=== PATIENT | female | born 1980 | race Caucasian/White ===

== ENCOUNTER 2016-07-31 17:36 | Inpatient (IN) | payer OTHER ==
[~2016-07-31] VITALS: Ht 144.8 cm; Wt 50.0 kg
[~2016-07-31 17:36] MED LIST: AMOX1TAB61 PO; CITA20TA5 PO; HYDR-971 PO; OMEP20TA PO
[2016-07-31] MEDS: IV NORMAL SALINE 1000ML BAG 1,000 ML IV SCH ×3 (18:10→21:11)
[2016-07-31 18:35] LABS: BASO # 0.1 x10^3/uL (0.0-0.2); BASO % 0 % (0-3); EOS % 1 % (0-3); HEMATOCRIT 30.6 % (36.0-47.0); HEMOGLOBIN 9.5 g/dL (12.0-15.5); LYMPH # 1.7 x10^3/uL (1.0-4.8); LYMPH % 11 % (24-48); MEAN CORPUSCULAR HEMOGLOBIN 21 pg (25-35); MEAN CORPUSCULAR HGB CONC 31 g/dL (31-37); MEAN CORPUSCULAR VOLUME 69 fL (79-100); MONO % 3 % (0-9); NEUT % 85 % (31-73); PLATELET COUNT 368 x10^3/uL (140-400); RED BLOOD COUNT 4.42 x10^6/uL (3.50-5.40); RED CELL DISTRIBUTION WIDTH 18.5 % (11.5-14.5); WHITE BLOOD COUNT 14.9 x10^3/uL (4.0-11.0)
[2016-07-31] MEDS ORDERED: IOHEXOL 300 MG/ML 75 ML VIAL IV ONE (18:45)
[2016-07-31 18:50] LABS: CALCIUM 8.7 mg/dL (8.5-10.1); CREATININE 0.8 mg/dL (0.6-1.0); GFR 82.6; POTASSIUM 3.1 mmol/L (3.5-5.1)
[2016-07-31 18:59] LABS: ALBUMIN 2.8 g/dL (3.4-5.0); ALBUMIN/GLOBULIN RATIO 0.6 (1.0-1.7); TOTAL BILIRUBIN 0.3 mg/dL (0.2-1.0); TOTAL PROTEIN 7.4 g/dL (6.4-8.2)
[2016-07-31] MEDS ORDERED: CONTRAST GIVEN MC PRN (19:00)
[2016-07-31 19:12] LABS: OBC FLU VALID
[2016-07-31 19:13] LABS: ANISOCYTOSIS SLIGHT; HYPOCHROMIA MOD; MICROCYTOSIS MARKED; OVALOCYTES FEW; PLT ESTIMATE ADEQUATE (ADEQUATE); TOXIC GRANULATION SLIGHT; TOXIC VACUOLATION SLIGHT
[2016-07-31] MEDS ORDERED: ONDANSETRON PF 4 MG/2 ML VIAL. IV ONE (19:15)
[2016-07-31] MEDS ORDERED: FENTANYL PF 100 MCG/2 ML VIAL. IV ONE (19:15)
[2016-07-31 19:26] LABS: NEG OBC UR NEG; POS OBC UR POS
[2016-07-31 19:28] LABS: BILIRUBIN,URINE NEGATIVE (NEG); GLUCOSE,URINE NEGATIVE (NEG); NITRITE,URINE NEGATIVE (NEG)
[2016-07-31 19:38] LABS: BACTERIA,URINE FEW /HPF (0-FEW); PROTEIN,URINE TRACE mg/dL (NEG-TRACE); RBC,URINE 0 /HPF (0-2); SQUAMOUS EPITHELIAL CELL,UR MOD /LPF
--- NOTE | 2016-07-31 20:08 | RAD ---
PROCEDURE CT abdomen pelvis with contrast. HISTORY Right upper and lower quadrant pain for 5 days with vomiting. Elevated white count TECHNIQUE Contiguous helical acquisitions are obtained through the abdomen and pelvis during intravenous administration of 95 cc of Omnipaque 300. Sagittal and coronal re-formatted images are obtained and reviewed. COMPARISON None available. FINDINGS The lung bases are essentially clear. The visualized heart is normal. The liver, spleen, pancreas and gallbladder appear normal. Both adrenal glands and bilateral kidneys are normal in size with symmetric excretion of contrast via both kidneys. Aorta is normal in caliber without aneurysm. There is diffuse wall thickening of several small bowel loops in the mid and right lower abdomen with inflammatory changes. Appendix is not identified. There is a probable 3.1centimeter collection with enhancing mao in the right lower quadrant. decompressed. The uterus is anteverted. Stool in the rectosigmoid region. Free fluid in the posterior cul-de-sac could. IMPRESSION 3.1 centimeter fluid collection in the right lower abdomen with enhancing mao and adjacent inflammatory changes. The findings are concerning for ruptured appendicitis with abscess formation. Wall thickening and inflammatory changes surrounding several small bowel loops in the right mid and lower abdomen probably reflects reactive enteritis. PQRS: One or more the following individualized dose reduction techniques were utilized for the study: 1. Automated exposure control. 2. Adjustment of the mA and/or kV according to patient size. 3. Use of iterative reconstruction technique. Electronically signed by: Nikki Benítez MD (Jul 31, 2016 20:06:24)
[2016-07-31] MEDS ORDERED: PIPERACILLIN/TAZOBACTAM 3.375 GM in IV NORMAL SALINE 50ML 50 ML IV ONE (20:15)
[2016-07-31] MEDS ORDERED: PIP/TAZO PER PHARMACY MC PRN (20:15)
[2016-07-31 20:16] LABS: PROCALCITONIN 0.16 ng/mL (0.00-0.10)
--- NOTE | 2016-07-31 20:57 | PHYS DOC ---
Past Medical History Past Medical History: Anxiety, Asthma, GERD Past Surgical History: , Other Additional Past Surgical Histo: d&c Alcohol Use: None Drug Use: None Adult General Chief Complaint Chief Complaint: ABDOMINAL PAIN HPI HPI Patient is a 35 year old female who presents with complaint of severe right lower quadrant pain. Patient states that she initially had pain in her right flank starting one week ago. The patient states that she shortly started her period afterward and thought that her pains were related to menstrual cramps. Patient states however that throughout the week she has been getting worsening pain along the right side with development of nausea and vomiting. Patient states that the pain has now become quite severe, and she has not been able to function normally at home. Patient rates her pain currently is 10 out of 10. Patient states that she feels very lightheaded and has been having chills. Patient states that the has localized to her right lower quadrant. Patient denies history of appendectomy. Review of Systems Review of Systems Constitutional: Chills, lightheadedness [] Eyes: Denies change in visual acuity, redness, or eye pain [] HENT: Denies nasal congestion or sore throat [] Respiratory: Dyspnea on exertion, denies cough [] Cardiovascular: No additional information not addressed in HPI [] GI: Abdominal pain, nausea, vomiting, denies diarrhea [] : Denies dysuria or hematuria [] Musculoskeletal: Denies back pain or joint pain [] Integument: Denies rash or skin lesions [] Neurologic: Denies headache, focal weakness or sensory changes [] Endocrine: Denies polyuria or polydipsia [] Current Medications Current Medications Current Medications Medications (Trade) Dose Ordered Sig/Rocky Start Time Stop Time Status Last Admin Dose Admin Fentanyl Citrate (Fentanyl 2ml Vial) 50 mcg 1X ONCE 07/31/16 19:15 07/31/16 19:16 DC 07/31/16 19:30 50 MCG Info (Do NOT chart on this entry -- for MONITORING) 1 each PRN DAILY PRN 07/31/16 19:00 08/02/16 18:59 Iohexol (Omnipaque 300 Mg/ml) 75 ml 1X ONCE 07/31/16 18:45 07/31/16 18:47 DC 07/31/16 18:45 75 ML Ondansetron HCl (Zofran) 4 mg 1X ONCE 07/31/16 19:15 07/31/16 19:16 DC 07/31/16 19:29 4 MG Piperacillin Sod/ Tazobactam Sod 1 each 1 each PRN DAILY PRN 07/31/16 20:15 Piperacillin Sod/ Tazobactam Sod/ Sodium Chloride (Zosyn/Iv Sodium Chloride 0.9% 50ml) 50 ml @ 100 mls/hr 1X ONCE 07/31/16 20:15 07/31/16 20:44 DC 07/31/16 20:25 100 MLS/HR Sodium Chloride (Iv Sodium Chloride 0.9% 1000ml Bag) 1,000 ml @ 435 mls/hr Q2H18M 07/31/16 18:18 07/31/16 22:18 07/31/16 20:24 435 MLS/HR Allergies Allergies Allergies Coded Allergies Type Severity Reaction Last Updated Verified No Known Drug Allergies 11/11/13 No Physical Exam Physical Exam Constitutional: Alert, afebrile, appears ill. [] HENT: Normocephalic, atraumatic, bilateral external ears normal, oropharynx dry , no oral exudates, nose normal. [] Eyes: PERRLA, EOMI, conjunctiva normal, no discharge. [] Neck: Normal range of motion, no tenderness, supple, no stridor. [] Cardiovascular: Tachycardia, regular rhythm, no murmur [] Lungs & Thorax: Bilateral breath sounds clear to auscultation [] Abdomen: Hypoactive bowel sounds, severe right lower quadrant tenderness to palpation with guarding, no rebound tenderness, no masses, no pulsatile masses. [] Skin: Cool, pale, no erythema, no rash. [] Back: No tenderness, no CVA tenderness. [] Extremities: No tenderness, no cyanosis, no clubbing, ROM intact, no edema. [] Neurologic: Alert and oriented X 3, normal motor function, normal sensory function, no focal deficits noted. [] Current Patient Data Vital Signs Vital Signs Date Time Temp Pulse Resp B/P Pulse Ox O2 Delivery O2 Flow Rate FiO2 07/31/16 19:43 109 117/69 98 Room Air 07/31/16 17:52 98.3 22 98.3 Lab Values Laboratory Tests Test 07/31/16 17:53 07/31/16 17:56 07/31/16 19:15 Influenza Type A Antigen Negative (NEGATIVE) Influenza Type B Antigen Negative (NEGATIVE) White Blood Count 14.9x10^3/uL (4.0-11.0) H Red Blood Count 4.42x10^6/uL (3.50-5.40) Hemoglobin 9.5g/dL (12.0-15.5) L Hematocrit 30.6% (36.0-47.0) L Mean Corpuscular Volume 69fL (79-100) L Mean Corpuscular Hemoglobin 21pg (25-35) L Mean Corpuscular Hemoglobin Concent 31g/dL (31-37) Red Cell Distribution Width 18.5% (11.5-14.5) H Platelet Count 368x10^3/uL (140-400) Neutrophils (%) (Auto) 85% (31-73) H Lymphocytes (%) (Auto) 11% (24-48) L Monocytes (%) (Auto) 3% (0-9) Eosinophils (%) (Auto) 1% (0-3) Basophils (%) (Auto) 0% (0-3) Neutrophils # (Auto) 12.6x10^3uL (1.8-7.7) H Lymphocytes # (Auto) 1.7x10^3/uL (1.0-4.8) Monocytes # (Auto) 0.5x10^3/uL (0.0-1.1) Eosinophils # (Auto) 0.1x10^3/uL (0.0-0.7) Basophils # (Auto) 0.1x10^3/uL (0.0-0.2) Segmented Neutrophils % 76% (35-66) H Band Neutrophils % 9% (0-9) Lymphocytes % 12% (24-48) L Monocytes % 3% (0-10) Toxic Granulation Slight Toxic Vacuolation Slight Platelet Estimate Adequate (ADEQUATE) Hypochromasia Mod Anisocytosis Slight Microcytosis Marked Ovalocytes Few Sodium Level 141mmol/L (136-145) Potassium Level 3.1mmol/L (3.5-5.1) L Chloride Level 103mmol/L (98-107) Carbon Dioxide Level 29mmol/L (21-32) Anion Gap 9 (6-14) Blood Urea Nitrogen 10mg/dL (7-20) Creatinine 0.8mg/dL (0.6-1.0) Estimated GFR (Cockcroft-Gault) 82.6 BUN/Creatinine Ratio 13 (6-20) Glucose Level 156mg/dL (70-99) H Lactic Acid Level 1.5mmol/L (0.4-2.0) Calcium Level 8.7mg/dL (8.5-10.1) Total Bilirubin 0.3mg/dL (0.2-1.0) Aspartate Amino Transferase (AST) 8U/L (15-37) L Alanine Aminotransferase (ALT) 11U/L (14-59) L Alkaline Phosphatase 80U/L (46-116) Total Protein 7.4g/dL (6.4-8.2) Albumin 2.8g/dL (3.4-5.0) L Albumin/Globulin Ratio 0.6 (1.0-1.7) L Lipase 58U/L (73-393) L Procalcitonin 0.16ng/mL (0.00-0.10) H Urine Collection Type U cath Urine Color Genia Urine Clarity Clear Urine pH 6.0 Urine Specific [place] 1.025 Urine Protein Tracemg/dL (NEG-TRACE) Urine Glucose (UA) Negativemg/dL (NEG) Urine Ketones (Stick) Tracemg/dL (NEG) Urine Blood Negative (NEG) Urine Nitrite Negative (NEG) Urine Bilirubin Negative (NEG) Urine Urobilinogen Dipstick 1.0mg/dL (0.2 mg/dL) Urine Leukocyte Esterase Negative (NEG) Urine RBC 0/HPF (0-2) Urine WBC 1-4/HPF (0-4) Urine Squamous Epithelial Cells Mod/LPF Urine Amorphous Sediment Present/HPF Urine Bacteria Few/HPF (0-FEW) Urine Granular Casts Occasional/HPF Urine Mucus Marked/LPF Urine Test Negative (NEG) Laboratory Tests 07/31/16 17:56 Laboratory Tests 07/31/16 17:56 EKG EKG Interpreted by me: Heart rate 117, sinus tachycardia, normal intervals, normal axis, no acute ST/T-wave abnormalities present [] Radiology/Procedures Radiology/Procedures [facility] [address] [place], [place] [id number] IMAGING REPORT Signed PATIENT: AALIYAH MONTANEZ ACCOUNT: [id number] : 1980 LOCATION: ER AGE: 35 SEX: F EXAM STATUS: REG ER ORD. PHYSICIAN: SHARMIN CHÁVEZ MD REASON: right upper and lower quadrant abdominal pain PROCEDURE: ABD PELV W/ IV CONTRAST ONLY PROCEDURE CT abdomen pelvis with contrast. HISTORY Right upper and lower quadrant pain for 5 days with vomiting. Elevated white count TECHNIQUE Contiguous helical acquisitions are obtained through the abdomen and pelvis during intravenous administration of 95 cc of Omnipaque 300. Sagittal and coronal re-formatted images are obtained and reviewed. COMPARISON None available. FINDINGS The lung bases are essentially clear. The visualized heart is normal. The liver, spleen, pancreas and gallbladder appear normal. Both adrenal glands and bilateral kidneys are normal in size with symmetric excretion of contrast via both kidneys. Aorta is normal in caliber without aneurysm. There is diffuse wall thickening of several small bowel loops in the mid and right lower abdomen with inflammatory changes. Appendix is not identified. There is a probable 3.1centimeter collection with enhancing mao in the right lower quadrant. decompressed. The uterus is anteverted. Stool in the rectosigmoid region. Free fluid in the posterior cul-de-sac could. IMPRESSION 3.1 centimeter fluid collection in the right lower abdomen with enhancing mao and adjacent inflammatory changes. The findings are concerning for ruptured appendicitis with abscess formation. Wall thickening and inflammatory changes surrounding several small bowel loops in the right mid and lower abdomen probably reflects reactive enteritis. PQRS: One or more the following individualized dose reduction techniques were utilized for the study: 1. Automated exposure control. 2. Adjustment of the mA and/or kV according to patient size. 3. Use of iterative reconstruction technique. Electronically signed by: Nikki Benítez MD (Jul 31, 2016 20:06:24) DICTATED and SIGNED BY: NIKKI BENÍTEZ MD DATE: 07/31/162005 CC: SHARMIN CHÁVEZ MD; ERIC JO MD ~ [] Course & Med Decision Making Course & Med Decision Making Pertinent Labs and Imaging studies reviewed. (See chart for details) Patient was found to have ruptured appendicitis on CT scan. I consult to Dr. Lizarraga who agreed with initiation of Zosyn. He plans on evaluating the patient in the morning after fluid challenge and IV antibiotics as patient will likely require percutaneous drainage of the abscess in the right lower quadrant which will be done expectedly by interventional radiology. Spoke with patient regarding treatment plan. Patient admitted to Dr. Jo. Vinayak Disclaimer Vinayak Disclaimer This electronic medical record was generated, in whole or in part, using a voice recognition dictation system. Departure Departure Impression: Primary Impression: Ruptured appendicitis Additional Impression: Sepsis Disposition: ADMITTED INPATIENT Admitting Physician: Eric Jo Condition: GUARDED Referrals: ERIC JO MD (PCP) Problem Qualifiers Additional Impression: Sepsis Sepsis type: sepsis due to unspecified organism Qualified Code: A41.9 - Sepsis, unspecified organism SHARMIN CHÁVEZ MD Jul 31, 2016 20:57
[2016-07-31] MEDS: ONDANSETRON PF 4 MG/2 ML VIAL. IV PRN (21:11)
[2016-07-31 21:12] VITALS: BP 116/70
[2016-07-31] MEDS: FENTANYL PF 100 MCG/2 ML VIAL. IV PRN (21:12)
[2016-07-31 23:30] VITALS: BP 115/67
[2016-08-01] MEDS: PIPERACILLIN/TAZOBACTAM 3.375 GM in IV NORMAL SALINE 50ML 50 ML IV SCH ×4 (00:11→18:01)
[2016-08-01] MEDS: FENTANYL PF 100 MCG/2 ML VIAL. IV PRN ×6 (01:48→17:55)
[2016-08-01 03:00] VITALS: BP 109/72
[2016-08-01 04:12] LABS: BASO % 0 % (0-3); EOS % 0 % (0-3); HEMATOCRIT 27.4 % (36.0-47.0); HEMOGLOBIN 8.3 g/dL (12.0-15.5); LYMPH # 0.7 x10^3/uL (1.0-4.8); LYMPH % 5 % (24-48); MEAN CORPUSCULAR HEMOGLOBIN 21 pg (25-35); MEAN CORPUSCULAR HGB CONC 30 g/dL (31-37); MEAN CORPUSCULAR VOLUME 70 fL (79-100); MONO % 2 % (0-9); NEUT % 93 % (31-73); PLATELET COUNT 311 x10^3/uL (140-400); RED CELL DISTRIBUTION WIDTH 18.3 % (11.5-14.5); WHITE BLOOD COUNT 14.7 x10^3/uL (4.0-11.0)
[2016-08-01] MEDS: IV NORMAL SALINE 1000ML BAG 1,000 ML IV SCH ×2 (05:00→10:20)
[2016-08-01] MEDS: ONDANSETRON PF 4 MG/2 ML VIAL. IV PRN ×2 (05:01→19:28)
[2016-08-01 05:36] LABS: CALCIUM 7.6 mg/dL (8.5-10.1); CREATININE 0.8 mg/dL (0.6-1.0); GFR 82.6; POTASSIUM 3.3 mmol/L (3.5-5.1)
--- NOTE | 2016-08-01 06:18 | EKG ---
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
[2016-08-01 07:00] VITALS: BP 100/68
--- NOTE | 2016-08-01 07:20 | PDOC2 ---
CONSULT Date of Consult Date of Consult DATE: 08/01/16 TIME: 07:14 Reason for Consult Reason for Consult: Abd pain Identification/Chief Complaint Chief Complaint RLQ abdominal pain Source Source: Patient History of Present Illness Reason for Visit: 35 yo female with 1 week history of increasing abdominal pain. Recently, developed nausea and vomiting with fever. Came to ED due to worsening pain. Past Medical History Psych: Anxiety Past Surgical History Past Surgical History: Family History Family History: No Significant Social History No ALCOHOL: rare Drugs: None Lives: with Family Current Problem List Problem List Problems Medical Problems: (1) Ruptured appendicitis Status: Acute (2) Sepsis Status: Acute Current Medications Current Medications Current Medications Sodium Chloride (Iv Sodium Chloride 0.9% 1000ml Bag) 1,000 ml @ 435 mls/hr Q2H18M IV Last administered on 07/31/16 20:24; Start 07/31/16 at 18:18; Stop 07/31/16 at 22:18; Status DC Iohexol (Omnipaque 300 Mg/ml) 75 ml 1X ONCE IV Last administered on 07/31/16 18:45; Start 07/31/16 at 18:45; Stop 07/31/16 at 18:47; Status DC Info (Do NOT chart on this entry -- for MONITORING) 1 each PRN DAILY PRN MC SEE COMMENTS; Start 07/31/16 at 19:00; Stop 08/02/16 at 18:59 Ondansetron HCl (Zofran) 4 mg 1X ONCE IV Last administered on 07/31/16 19:29; Start 07/31/16 at 19:15; Stop 07/31/16 at 19:16; Status DC Fentanyl Citrate (Fentanyl 2ml Vial) 50 mcg 1X ONCE IV Last administered on 19:30; Start 07/31/16 at 19:15; Stop 07/31/16 at 19:16; Status DC Piperacillin Sod/ Tazobactam Sod 1 each 1 each PRN DAILY PRN MC SEE COMMENTS; Start 07/31/16 at 20:15 Piperacillin Sod/ Tazobactam Sod/ Sodium Chloride (Zosyn/Iv Sodium Chloride 0.9 % 50ml) 50 ml @ 100 mls/hr 1X ONCE IV Last administered on 07/31/16 20:25; Start 07/31/16 at 20:15; Stop 07/31/16 at 20:44; Status DC Ondansetron HCl (Zofran) 4 mg PRN Q8HRS PRN IV NAUSEA/VOMITING Last administered on 08/01/16 05:01; Start 07/31/16 at 20:45; Stop 08/01/16 at 20:44 Fentanyl Citrate 50 mcg 50 mcg PRN Q2HR PRN IV SEVERE PAIN Last administered on 08/01/16 05:02; Start 07/31/16 at 20:45; Stop 08/01/16 at 20:44 Sodium Chloride 1,000 ml @ 150 mls/hr Q6H40M IV Last administered on 08/01/16 05:00; Start 07/31/16 at 21:00; Stop 08/01/16 at 20:59 Piperacillin Sod/ Tazobactam Sod/ Sodium Chloride (Zosyn/Iv Sodium Chloride 0.9 % 50ml) 50 ml @ 100 mls/hr Q6HRS IV Last administered on 08/01/16 06:29; Start 08/01/16 at 00:00 Active Scripts Active [place] 5-325 Tablet (Acetaminophen/Hydrocodone Bitart) 1 Each Tablet 1-2 Tab PO Q4-6HRS Augmentin 875-125 Tablet (Amoxicillin/Potassium Clav) 1 Each Tablet 1 Tab PO BID Reported Omeprazole 20 Mg Tablet.dr 20 Mg PO Citalopram Hbr (Citalopram Hydrobromide) 20 Mg Tablet 20 Mg PO Allergies Allergies: Coded Allergies: No Known Drug Allergies (Unverified , 11/11/13) ROS General: YES: Fatigue, Malaise PSYCHOLOGICAL ROS: YES: Anxiety Gastrointestinal: Yes Abdominal Pain, Yes Nausea, Yes Vomiting Physical Exam General: Alert, Oriented X3, Cooperative, moderate distress HEENT: Atraumatic, PERRLA, EOMI Lungs: Clear to auscultation, Normal air movement Heart: Regular rate, No murmurs Abdomen: Normal bowel sounds, Soft, Other (TTP RLQ) Extremities: No edema Skin: No significant lesion Neuro: Normal speech Psych/Mental Status: Mental status NL Vitals VITALS Vital Signs Date Time Temp Pulse Resp B/P Pulse Ox O2 Delivery O2 Flow Rate FiO2 08/01/16 05:35 20 93 Room Air 08/01/16 03:00 99.8 109 109/72 99.8 Labs Labs Laboratory Tests Test 07/31/16 17:53 07/31/16 17:56 07/31/16 19:15 08/01/16 03:40 Influenza Type A Antigen Negative (NEGATIVE) Influenza Type B Antigen Negative (NEGATIVE) White Blood Count 14.9x10^3/uL (4.0-11.0) 14.7x10^3/uL (4.0-11.0) Red Blood Count 4.42x10^6/uL (3.50-5.40) 3.90x10^6/uL (3.50-5.40) Hemoglobin 9.5g/dL (12.0-15.5) 8.3g/dL (12.0-15.5) Hematocrit 30.6% (36.0-47.0) 27.4% (36.0-47.0) Mean Corpuscular Volume 69fL (79-100) 70fL (79-100) Mean Corpuscular Hemoglobin 21pg (25-35) 21pg (25-35) Mean Corpuscular Hemoglobin Concent 31g/dL (31-37) 30g/dL (31-37) Red Cell Distribution Width 18.5% (11.5-14.5) 18.3% (11.5-14.5) Platelet Count 368x10^3/uL (140-400) 311x10^3/uL (140-400) Neutrophils (%) (Auto) 85% (31-73) 93% (31-73) Lymphocytes (%) (Auto) 11% (24-48) 5% (24-48) Monocytes (%) (Auto) 3% (0-9) 2% (0-9) Eosinophils (%) (Auto) 1% (0-3) 0% (0-3) Basophils (%) (Auto) 0% (0-3) 0% (0-3) Neutrophils # (Auto) 12.6x10^3uL (1.8-7.7) 13.6x10^3uL (1.8-7.7) Lymphocytes # (Auto) 1.7x10^3/uL (1.0-4.8) 0.7x10^3/uL (1.0-4.8) Monocytes # (Auto) 0.5x10^3/uL (0.0-1.1) 0.4x10^3/uL (0.0-1.1) Eosinophils # (Auto) 0.1x10^3/uL (0.0-0.7) 0.0x10^3/uL (0.0-0.7) Basophils # (Auto) 0.1x10^3/uL (0.0-0.2) 0.0x10^3/uL (0.0-0.2) Segmented Neutrophils % 76% (35-66) Band Neutrophils % 9% (0-9) Lymphocytes % 12% (24-48) Monocytes % 3% (0-10) Toxic Granulation Slight Toxic Vacuolation Slight Platelet Estimate Adequate (ADEQUATE) Hypochromasia Mod Anisocytosis Slight Microcytosis Marked Ovalocytes Few Sodium Level 141mmol/L (136-145) 143mmol/L (136-145) Potassium Level 3.1mmol/L (3.5-5.1) 3.3mmol/L (3.5-5.1) Chloride Level 103mmol/L (98-107) 106mmol/L (98-107) Carbon Dioxide Level 29mmol/L (21-32) 24mmol/L (21-32) Anion Gap 9 (6-14) 13 (6-14) Blood Urea Nitrogen 10mg/dL (7-20) 8mg/dL (7-20) Creatinine 0.8mg/dL (0.6-1.0) 0.8mg/dL (0.6-1.0) Estimated GFR (Cockcroft-Gault) 82.6 82.6 BUN/Creatinine Ratio 13 (6-20) Glucose Level 156mg/dL (70-99) 95mg/dL (70-99) Lactic Acid Level 1.5mmol/L (0.4-2.0) Calcium Level 8.7mg/dL (8.5-10.1) 7.6mg/dL (8.5-10.1) Total Bilirubin 0.3mg/dL (0.2-1.0) Aspartate Amino Transf (AST/SGOT) 8U/L (15-37) Alanine Aminotransferase (ALT/SGPT) 11U/L (14-59) Alkaline Phosphatase 80U/L (46-116) Total Protein 7.4g/dL (6.4-8.2) Albumin 2.8g/dL (3.4-5.0) Albumin/Globulin Ratio 0.6 (1.0-1.7) Lipase 58U/L (73-393) Procalcitonin 0.16ng/mL (0.00-0.10) Urine Collection Type U cath Urine Color [place] Urine Clarity Clear Urine pH 6.0 Urine Specific [place] 1.025 Urine Protein Tracemg/dL (NEG-TRACE) Urine Glucose (UA) Negativemg/dL (NEG) Urine Ketones (Stick) Tracemg/dL (NEG) Urine Blood Negative (NEG) Urine Nitrite Negative (NEG) Urine Bilirubin Negative (NEG) Urine Urobilinogen Dipstick 1.0mg/dL (0.2 mg/dL) Urine Leukocyte Esterase Negative (NEG) Urine RBC 0/HPF (0-2) Urine WBC 1-4/HPF (0-4) Urine Squamous Epithelial Cells Mod/LPF Urine Amorphous Sediment Present/HPF Urine Bacteria Few/HPF (0-FEW) Urine Granular Casts Occasional/HPF Urine Mucus Marked/LPF Urine Test Negative (NEG) Laboratory Tests Test 07/31/16 17:53 07/31/16 17:56 07/31/16 19:15 08/01/16 03:40 Influenza Type A Antigen Negative (NEGATIVE) Influenza Type B Antigen Negative (NEGATIVE) White Blood Count 14.9x10^3/uL (4.0-11.0) 14.7x10^3/uL (4.0-11.0) Red Blood Count 4.42x10^6/uL (3.50-5.40) 3.90x10^6/uL (3.50-5.40) Hemoglobin 9.5g/dL (12.0-15.5) 8.3g/dL (12.0-15.5) Hematocrit 30.6% (36.0-47.0) 27.4% (36.0-47.0) Mean Corpuscular Volume 69fL (79-100) 70fL (79-100) Mean Corpuscular Hemoglobin 21pg (25-35) 21pg (25-35) Mean Corpuscular Hemoglobin Concent 31g/dL (31-37) 30g/dL (31-37) Red Cell Distribution Width 18.5% (11.5-14.5) 18.3% (11.5-14.5) Platelet Count 368x10^3/uL (140-400) 311x10^3/uL (140-400) Neutrophils (%) (Auto) 85% (31-73) 93% (31-73) Lymphocytes (%) (Auto) 11% (24-48) 5% (24-48) Monocytes (%) (Auto) 3% (0-9) 2% (0-9) Eosinophils (%) (Auto) 1% (0-3) 0% (0-3) Basophils (%) (Auto) 0% (0-3) 0% (0-3) Neutrophils # (Auto) 12.6x10^3uL (1.8-7.7) 13.6x10^3uL (1.8-7.7) Lymphocytes # (Auto) 1.7x10^3/uL (1.0-4.8) 0.7x10^3/uL (1.0-4.8) Monocytes # (Auto) 0.5x10^3/uL (0.0-1.1) 0.4x10^3/uL (0.0-1.1) Eosinophils # (Auto) 0.1x10^3/uL (0.0-0.7) 0.0x10^3/uL (0.0-0.7) Basophils # (Auto) 0.1x10^3/uL (0.0-0.2) 0.0x10^3/uL (0.0-0.2) Segmented Neutrophils % 76% (35-66) Band Neutrophils % 9% (0-9) Lymphocytes % 12% (24-48) Monocytes % 3% (0-10) Toxic Granulation Slight Toxic Vacuolation Slight Platelet Estimate Adequate (ADEQUATE) Hypochromasia Mod Anisocytosis Slight Microcytosis Marked Ovalocytes Few Sodium Level 141mmol/L (136-145) 143mmol/L (136-145) Potassium Level 3.1mmol/L (3.5-5.1) 3.3mmol/L (3.5-5.1) Chloride Level 103mmol/L (98-107) 106mmol/L (98-107) Carbon Dioxide Level 29mmol/L (21-32) 24mmol/L (21-32) Anion Gap 9 (6-14) 13 (6-14) Blood Urea Nitrogen 10mg/dL (7-20) 8mg/dL (7-20) Creatinine 0.8mg/dL (0.6-1.0) 0.8mg/dL (0.6-1.0) Estimated GFR (Cockcroft-Gault) 82.6 82.6 BUN/Creatinine Ratio 13 (6-20) Glucose Level 156mg/dL (70-99) 95mg/dL (70-99) Lactic Acid Level 1.5mmol/L (0.4-2.0) Calcium Level 8.7mg/dL (8.5-10.1) 7.6mg/dL (8.5-10.1) Total Bilirubin 0.3mg/dL (0.2-1.0) Aspartate Amino Transf (AST/SGOT) 8U/L (15-37) Alanine Aminotransferase (ALT/SGPT) 11U/L (14-59) Alkaline Phosphatase 80U/L (46-116) Total Protein 7.4g/dL (6.4-8.2) Albumin 2.8g/dL (3.4-5.0) Albumin/Globulin Ratio 0.6 (1.0-1.7) Lipase 58U/L (73-393) Procalcitonin 0.16ng/mL (0.00-0.10) Urine Collection Type U cath Urine Color [place] Urine Clarity Clear Urine pH 6.0 Urine Specific [place] Level 1.025 Urine Protein Tracemg/dL (NEG-TRACE) Urine Glucose (UA) Negativemg/dL (NEG) Urine Ketones (Stick) Tracemg/dL (NEG) Urine Blood Negative (NEG) Urine Nitrite Negative (NEG) Urine Bilirubin Negative (NEG) Urine Urobilinogen Dipstick 1.0mg/dL (0.2 mg/dL) Urine Leukocyte Esterase Negative (NEG) Urine RBC 0/HPF (0-2) Urine WBC 1-4/HPF (0-4) Urine Squamous Epithelial Cells Mod/LPF Urine Amorphous Sediment Present/HPF Urine Bacteria Few/HPF (0-FEW) Urine Granular Casts Occasional/HPF Urine Mucus Marked/LPF Urine Test Negative (NEG) Images Images CT showing RLQ abscess with phlegmon, likely from ruptured appendix. Assessment/Plan Assessment/Plan RLQ abdominal abscess from ruptured appendix Plan IV abx, Consult IR for perc drain of abscess RAMON ALCANTAR MD Aug 01, 2016 07:20
[2016-08-01 10:49] VITALS: BP 110/75
--- NOTE | 2016-08-01 11:10 | PDOC ---
PROGRESS NOTES Subjective Subjective Pt awake and pleasant this am. C/o abdominal pain with nausea. Objective Objective Pt awake and alert. Pt appears uncomfortable. Tmax 102. BP stable. Heart with RRR. No murmurs. No pedal edema. Resp even and unlabored. Pt on RA, not requiring supplemental O2. Abdomen soft, tender throughout. Vital Signs Date Time Temp Pulse Resp B/P Pulse Ox O2 Delivery O2 Flow Rate FiO2 08/01/16 11:00 Room Air 08/01/16 10:49 99.7 107 24 110/75 92 99.7 Intake and Output 08/01/16 07:00 Intake Total 2306 ml Output Total 600 ml Balance 1706 ml Intake Oral 0 ml IV Total 2306 ml Output Urine Total 600 ml Assessment Assessment Problems Medical Problems: (1) Ruptured appendicitis Status: Acute (2) Sepsis Status: Acute Plan Plan of Care 1. RLQ abdominal pain with ruptured appendix. -1 week hx of RLQ pain with n/v and febrile status. -CT showing RLQ abscess with phlegmon, likely from ruptured appendix. -WBC 14.9 upon admission -Zosyn IV -Surgery consulting -Interventional radiology consulting, drain placement scheduled for this am. 2. Anemia, unknown origin -Hgb 8.2 -Recheck CBC at 1400 and again in am 3. Hypokalemia -Add 20mEq to NS -Recheck BMP in am Comment Review of Relevant I have reviewed the following items conchita (where applicable) has been applied. Labs Laboratory Tests Test 07/31/16 17:53 07/31/16 17:56 07/31/16 19:15 08/01/16 03:40 Influenza Type A Antigen Negative (NEGATIVE) Influenza Type B Antigen Negative (NEGATIVE) White Blood Count 14.9x10^3/uL (4.0-11.0) 14.7x10^3/uL (4.0-11.0) Red Blood Count 4.42x10^6/uL (3.50-5.40) 3.90x10^6/uL (3.50-5.40) Hemoglobin 9.5g/dL (12.0-15.5) 8.3g/dL (12.0-15.5) Hematocrit 30.6% (36.0-47.0) 27.4% (36.0-47.0) Mean Corpuscular Volume 69fL (79-100) 70fL (79-100) Mean Corpuscular Hemoglobin 21pg (25-35) 21pg (25-35) Mean Corpuscular Hemoglobin Concent 31g/dL (31-37) 30g/dL (31-37) Red Cell Distribution Width 18.5% (11.5-14.5) 18.3% (11.5-14.5) Platelet Count 368x10^3/uL (140-400) 311x10^3/uL (140-400) Neutrophils (%) (Auto) 85% (31-73) 93% (31-73) Lymphocytes (%) (Auto) 11% (24-48) 5% (24-48) Monocytes (%) (Auto) 3% (0-9) 2% (0-9) Eosinophils (%) (Auto) 1% (0-3) 0% (0-3) Basophils (%) (Auto) 0% (0-3) 0% (0-3) Neutrophils # (Auto) 12.6x10^3uL (1.8-7.7) 13.6x10^3uL (1.8-7.7) Lymphocytes # (Auto) 1.7x10^3/uL (1.0-4.8) 0.7x10^3/uL (1.0-4.8) Monocytes # (Auto) 0.5x10^3/uL (0.0-1.1) 0.4x10^3/uL (0.0-1.1) Eosinophils # (Auto) 0.1x10^3/uL (0.0-0.7) 0.0x10^3/uL (0.0-0.7) Basophils # (Auto) 0.1x10^3/uL (0.0-0.2) 0.0x10^3/uL (0.0-0.2) Segmented Neutrophils % 76% (35-66) Band Neutrophils % 9% (0-9) Lymphocytes % 12% (24-48) Monocytes % 3% (0-10) Toxic Granulation Slight Toxic Vacuolation Slight Platelet Estimate Adequate (ADEQUATE) Hypochromasia Mod Anisocytosis Slight Microcytosis Marked Ovalocytes Few Sodium Level 141mmol/L (136-145) 143mmol/L (136-145) Potassium Level 3.1mmol/L (3.5-5.1) 3.3mmol/L (3.5-5.1) Chloride Level 103mmol/L (98-107) 106mmol/L (98-107) Carbon Dioxide Level 29mmol/L (21-32) 24mmol/L (21-32) Anion Gap 9 (6-14) 13 (6-14) Blood Urea Nitrogen 10mg/dL (7-20) 8mg/dL (7-20) Creatinine 0.8mg/dL (0.6-1.0) 0.8mg/dL (0.6-1.0) Estimated GFR (Cockcroft-Gault) 82.6 82.6 BUN/Creatinine Ratio 13 (6-20) Glucose Level 156mg/dL (70-99) 95mg/dL (70-99) Lactic Acid Level 1.5mmol/L (0.4-2.0) Calcium Level 8.7mg/dL (8.5-10.1) 7.6mg/dL (8.5-10.1) Total Bilirubin 0.3mg/dL (0.2-1.0) Aspartate Amino Transf (AST/SGOT) 8U/L (15-37) Alanine Aminotransferase (ALT/SGPT) 11U/L (14-59) Alkaline Phosphatase 80U/L (46-116) Total Protein 7.4g/dL (6.4-8.2) Albumin 2.8g/dL (3.4-5.0) Albumin/Globulin Ratio 0.6 (1.0-1.7) Lipase 58U/L (73-393) Procalcitonin 0.16ng/mL (0.00-0.10) Urine Collection Type U cath Urine Color Genia Urine Clarity Clear Urine pH 6.0 Urine Specific [place] 1.025 Urine Protein Tracemg/dL (NEG-TRACE) Urine Glucose (UA) Negativemg/dL (NEG) Urine Ketones (Stick) Tracemg/dL (NEG) Urine Blood Negative (NEG) Urine Nitrite Negative (NEG) Urine Bilirubin Negative (NEG) Urine Urobilinogen Dipstick 1.0mg/dL (0.2 mg/dL) Urine Leukocyte Esterase Negative (NEG) Urine RBC 0/HPF (0-2) Urine WBC 1-4/HPF (0-4) Urine Squamous Epithelial Cells Mod/LPF Urine Amorphous Sediment Present/HPF Urine Bacteria Few/HPF (0-FEW) Urine Granular Casts Occasional/HPF Urine Mucus Marked/LPF Urine Test Negative (NEG) Laboratory Tests Test 07/31/16 17:53 07/31/16 17:56 07/31/16 19:15 08/01/16 03:40 Influenza Type A Antigen Negative (NEGATIVE) Influenza Type B Antigen Negative (NEGATIVE) White Blood Count 14.9x10^3/uL (4.0-11.0) 14.7x10^3/uL (4.0-11.0) Red Blood Count 4.42x10^6/uL (3.50-5.40) 3.90x10^6/uL (3.50-5.40) Hemoglobin 9.5g/dL (12.0-15.5) 8.3g/dL (12.0-15.5) Hematocrit 30.6% (36.0-47.0) 27.4% (36.0-47.0) Mean Corpuscular Volume 69fL (79-100) 70fL (79-100) Mean Corpuscular Hemoglobin 21pg (25-35) 21pg (25-35) Mean Corpuscular Hemoglobin Concent 31g/dL (31-37) 30g/dL (31-37) Red Cell Distribution Width 18.5% (11.5-14.5) 18.3% (11.5-14.5) Platelet Count 368x10^3/uL (140-400) 311x10^3/uL (140-400) Neutrophils (%) (Auto) 85% (31-73) 93% (31-73) Lymphocytes (%) (Auto) 11% (24-48) 5% (24-48) Monocytes (%) (Auto) 3% (0-9) 2% (0-9) Eosinophils (%) (Auto) 1% (0-3) 0% (0-3) Basophils (%) (Auto) 0% (0-3) 0% (0-3) Neutrophils # (Auto) 12.6x10^3uL (1.8-7.7) 13.6x10^3uL (1.8-7.7) Lymphocytes # (Auto) 1.7x10^3/uL (1.0-4.8) 0.7x10^3/uL (1.0-4.8) Monocytes # (Auto) 0.5x10^3/uL (0.0-1.1) 0.4x10^3/uL (0.0-1.1) Eosinophils # (Auto) 0.1x10^3/uL (0.0-0.7) 0.0x10^3/uL (0.0-0.7) Basophils # (Auto) 0.1x10^3/uL (0.0-0.2) 0.0x10^3/uL (0.0-0.2) Segmented Neutrophils % 76% (35-66) Band Neutrophils % 9% (0-9) Lymphocytes % 12% (24-48) Monocytes % 3% (0-10) Toxic Granulation Slight Toxic Vacuolation Slight Platelet Estimate Adequate (ADEQUATE) Hypochromasia Mod Anisocytosis Slight Microcytosis Marked Ovalocytes Few Sodium Level 141mmol/L (136-145) 143mmol/L (136-145) Potassium Level 3.1mmol/L (3.5-5.1) 3.3mmol/L (3.5-5.1) Chloride Level 103mmol/L (98-107) 106mmol/L (98-107) Carbon Dioxide Level 29mmol/L (21-32) 24mmol/L (21-32) Anion Gap 9 (6-14) 13 (6-14) Blood Urea Nitrogen 10mg/dL (7-20) 8mg/dL (7-20) Creatinine 0.8mg/dL (0.6-1.0) 0.8mg/dL (0.6-1.0) Estimated GFR (Cockcroft-Gault) 82.6 82.6 BUN/Creatinine Ratio 13 (6-20) Glucose Level 156mg/dL (70-99) 95mg/dL (70-99) Lactic Acid Level 1.5mmol/L (0.4-2.0) Calcium Level 8.7mg/dL (8.5-10.1) 7.6mg/dL (8.5-10.1) Total Bilirubin 0.3mg/dL (0.2-1.0) Aspartate Amino Transf (AST/SGOT) 8U/L (15-37) Alanine Aminotransferase (ALT/SGPT) 11U/L (14-59) Alkaline Phosphatase 80U/L (46-116) Total Protein 7.4g/dL (6.4-8.2) Albumin 2.8g/dL (3.4-5.0) Albumin/Globulin Ratio 0.6 (1.0-1.7) Lipase 58U/L (73-393) Procalcitonin 0.16ng/mL (0.00-0.10) Urine Collection Type U cath Urine Color Genia Urine Clarity Clear Urine pH 6.0 Urine Specific [place] 1.025 Urine Protein Tracemg/dL (NEG-TRACE) Urine Glucose (UA) Negativemg/dL (NEG) Urine Ketones (Stick) Tracemg/dL (NEG) Urine Blood Negative (NEG) Urine Nitrite Negative (NEG) Urine Bilirubin Negative (NEG) Urine Urobilinogen Dipstick 1.0mg/dL (0.2 mg/dL) Urine Leukocyte Esterase Negative (NEG) Urine RBC 0/HPF (0-2) Urine WBC 1-4/HPF (0-4) Urine Squamous Epithelial Cells Mod/LPF Urine Amorphous Sediment Present/HPF Urine Bacteria Few/HPF (0-FEW) Urine Granular Casts Occasional/HPF Urine Mucus Marked/LPF Urine Test Negative (NEG) Medications Current Medications Sodium Chloride (Iv Sodium Chloride 0.9% 1000ml Bag) 1,000 ml @ 435 mls/hr Q2H18M IV Last administered on 07/31/16 20:24; Start 07/31/16 at 18:18; Stop 07/31/16 at 22:18; Status DC Iohexol (Omnipaque 300 Mg/ml) 75 ml 1X ONCE IV Last administered on 07/31/16 18:45; Start 07/31/16 at 18:45; Stop 07/31/16 at 18:47; Status DC Info (Do NOT chart on this entry -- for MONITORING) 1 each PRN DAILY PRN MC SEE COMMENTS; Start 07/31/16 at 19:00; Stop 08/02/16 at 18:59 Ondansetron HCl (Zofran) 4 mg 1X ONCE IV Last administered on 07/31/16 19:29; Start 07/31/16 at 19:15; Stop 07/31/16 at 19:16; Status DC Fentanyl Citrate (Fentanyl 2ml Vial) 50 mcg 1X ONCE IV Last administered on 19:30; Start 07/31/16 at 19:15; Stop 07/31/16 at 19:16; Status DC Piperacillin Sod/ Tazobactam Sod 1 each 1 each PRN DAILY PRN MC SEE COMMENTS; Start 07/31/16 at 20:15 Piperacillin Sod/ Tazobactam Sod/ Sodium Chloride (Zosyn/Iv Sodium Chloride 0.9 % 50ml) 50 ml @ 100 mls/hr 1X ONCE IV Last administered on 07/31/16 20:25; Start 07/31/16 at 20:15; Stop 07/31/16 at 20:44; Status DC Ondansetron HCl (Zofran) 4 mg PRN Q8HRS PRN IV NAUSEA/VOMITING Last administered on 08/01/16 05:01; Start 07/31/16 at 20:45; Stop 08/01/16 at 20:44 Fentanyl Citrate 50 mcg 50 mcg PRN Q2HR PRN IV SEVERE PAIN Last administered on 08/01/16 11:00; Start 07/31/16 at 20:45; Stop 08/01/16 at 20:44 Sodium Chloride 1,000 ml @ 150 mls/hr Q6H40M IV Last administered on 08/01/16 05:00; Start 07/31/16 at 21:00; Stop 08/01/16 at 20:59 Piperacillin Sod/ Tazobactam Sod/ Sodium Chloride (Zosyn/Iv Sodium Chloride 0.9 % 50ml) 50 ml @ 100 mls/hr Q6HRS IV Last administered on 08/01/16 06:29; Start 08/01/16 at 00:00 Active Scripts Active [place] 5-325 Tablet (Acetaminophen/Hydrocodone Bitart) 1 Each Tablet 1-2 Tab PO Q4-6HRS Augmentin 875-125 Tablet (Amoxicillin/Potassium Clav) 1 Each Tablet 1 Tab PO BID Reported Omeprazole 20 Mg Tablet.dr 20 Mg PO Citalopram Hbr (Citalopram Hydrobromide) 20 Mg Tablet 20 Mg PO Vitals/I & O Vital Sign - Last 24 Hours 07/31/16 07/31/16 07/31/16 07/31/16 17:52 19:00 19:43 21:00 Temp 98.3 98.3 Pulse 99 112 109 Resp 22 B/P 116/56 126/70 117/69 Pulse Ox 98 97 98 O2 Delivery Room Air Room Air Room Air Room Air 07/31/16 07/31/16 07/31/16 08/01/16 21:12 21:12 23:30 01:48 Temp 102.0 101.0 102.0 101.0 Pulse 115 124 Resp 20 20 20 22 B/P 116/70 115/67 Pulse Ox 97 98 94 94 O2 Delivery Room Air Room Air Room Air Room Air 08/01/16 08/01/16 08/01/16 08/01/16 03:00 05:02 05:35 07:00 Temp 99.8 99.8 99.8 99.8 Pulse 109 107 Resp 18 22 20 32 B/P 109/72 100/68 Pulse Ox 93 93 93 89 O2 Delivery Room Air Room Air Room Air 08/01/16 08/01/16 08/01/16 08/01/16 07:49 08:07 08:40 10:49 Temp 99.7 99.7 Pulse 107 Resp 24 B/P 110/75 Pulse Ox 92 O2 Delivery Room Air Room Air Room Air Room Air 08/01/16 11:00 O2 Delivery Room Air Intake and Output 07/31/16 07/31/16 08/01/16 15:00 23:00 07:00 Intake Total 1050 ml 1256 ml Output Total 600 ml Balance 1050 ml 656 ml KEVIN GARCIA MD Aug 01, 2016 11:10
--- NOTE | 2016-08-01 11:49 | PDOC ---
Provider Note Provider Note IR Note: Asked to consider pelvic abscess drain placement---thank you. 35 YO female with severe abdominal pain, with fever and N&V. CT abdomen/pelvis reviewed. Difficult to separate discrete abscess from adjacent inflamed bowel/phlegmon. 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 Discussed case with Dr Lizarraga, who will request pelvic U/S. May need additional delayed CT imaging with oral contrast material, as well. Given uncertainty of IR intervention, laparoscopy may be indicated. Will follow. RAYNA YEN MD Aug 01, 2016 11:49
[2016-08-01 13:47] LABS: RED BLOOD COUNT 3.83 x10^6/uL (3.50-5.40); RED CELL DISTRIBUTION WIDTH 18.5 % (11.5-14.5); WHITE BLOOD COUNT 17.9 x10^3/uL (4.0-11.0)
[2016-08-01 15:00] VITALS: BP 99/65
--- NOTE | 2016-08-01 17:56 | RAD ---
PROCEDURE Pelvic ultrasound HISTORY Right lower quadrant pain, appendix ruptured 9 days ago COMPARISON 07/31/2016 CT abdomen pelvis exam, no previous ultrasound available FINDINGS Multiple transabdominal sonographic images of the pelvis are submitted. Uterus measured 8.6 x 3.5 by 6.1 centimeters. Endometrium measured 0.8 centimeters. Right ovary measured 5.5 x 4.8 by 5.2 centimeters. There is a hypoechoic lesion with some internal echoes of the right ovary on the order of 3.2 x 2.7 x 2.5 centimeters. There is normal low resistance vascularity of the right ovary. Left ovary measured 3.1 x 2 by 3 centimeters, normal low resistance vascularity. No significant free fluid is demonstrated. IMPRESSION There is a slightly complex right ovarian cyst up to 3.2 centimeters. There is no free fluid. Electronically signed by: Doroteo Braxton MD (Aug 01, 2016 17:54:25)
[2016-08-01] MEDS ORDERED: FENTANYL PF 100 MCG/2 ML VIAL. IV PRN (18:15)
[2016-08-01 19:00] VITALS: BP 106/73
[2016-08-01] MEDS: HYDROMORPHONE 2 MG/ML VIAL. IV PRN (19:25)
--- NOTE | 2016-08-01 19:26 | PDOC ---
Provider Note Provider Note IR Note: Pelvic ultrasound revealed a tender, enlarged rt ovary, containing a complex cystic structure, within anterior aspect or right hemipelvis. This correlates well with the mass identified at CT. General surgeon was notified. [employer] consult was requested. IR drainage was deferred. RAYNA YEN MD Aug 01, 2016 19:26
--- NOTE | 2016-08-01 21:28 | HP ---
ADMIT DATE: 07/31/2016 Carla Alcocer APRN dictating on behalf of Dr. Kevin Garcia. CHIEF COMPLAINT AND HISTORY OF PRESENT ILLNESS: This is a 35-year-old female who is a patient of Dr. Billy Mercedes whom we will be following throughout her initial hospital visit. The patient presented to the Emergency Room on the date of admission with complaints of right lower quadrant pain. The patient stated that her pain began approximately 1 week prior to presenting to the ER. The pain originally was in her right flank and then gradually moved into her right lower quadrant of her abdomen. The patient stated that she was experiencing nausea and vomiting as well as chills and a low-grade fever over the 24 hours prior to coming to the Emergency Room. Upon examination in the Emergency Room, the patient stated her pain was a 10/10 on a pain scale. The patient was very tender in her right lower quadrant. She was febrile with a T-max of 102. The patient was dosed with 50 mcg of fentanyl. A CT of her abdomen was performed, which revealed a 3.1 cm fluid collection in the right lower abdomen with enhancing mao and adjacent inflammatory changes. The findings were concerning for ruptured appendix with abscess formation. The patient was started on Zosyn IV. The patient's white blood cell count was 14.9 and her hemoglobin was 9.5. Surgery was consulted and the patient was admitted to the hospital for further evaluation and treatment. PAST MEDICAL HISTORY: Significant for anxiety, asthma and GERD. PAST SURGICAL HISTORY: and D and C. FAMILY HISTORY: Noncontributory to current illness. SOCIAL HISTORY: The patient denies alcohol use. Denies tobacco use and denies illicit drug use. REVIEW OF SYSTEMS: As mentioned above. PHYSICAL EXAMINATION: GENERAL: The patient is a well-developed and well-nourished white female who appears ill upon examination. VITAL SIGNS: The patient has a T-max of 102, blood pressure stable, heart rate stable. HEENT: Unremarkable. NECK: Supple, without adenopathy or thyromegaly. CHEST: Clear to auscultation. HEART: Regular rate and rhythm without S3, S4 or murmur. ABDOMEN: Soft, tender throughout without distention. EXTREMITIES: Without cyanosis, clubbing or edema. NEUROLOGIC: Grossly intact. IMPRESSION: Perforated appendix with abscess formation. PLAN: The patient has been admitted. Surgery and Interventional Radiology have been consulted. The patient will continue on Zosyn IV. We will continue to follow the patient's hemoglobin closely. The patient will be monitored, managed and treated appropriately throughout her hospitalization. KEVIN GARCIA MD DR: DAMIAN/matthew JOB#: [id number] / [id number]
[2016-08-01] MEDS: KETOROLAC TROMETHAMINE 30 MG/ML SYRINGE. IV PRN (21:58)
[2016-08-01 23:00] VITALS: BP 98/47
[2016-08-02] MEDS: HYDROMORPHONE 2 MG/ML VIAL. IV PRN ×4 (02:11→21:52)
[2016-08-02 03:00] VITALS: BP 82/46
[2016-08-02 05:20] LABS: HEMATOCRIT 25.1 % (36.0-47.0); HEMOGLOBIN 7.5 g/dL (12.0-15.5); RED BLOOD COUNT 3.62 x10^6/uL (3.50-5.40); RED CELL DISTRIBUTION WIDTH 18.4 % (11.5-14.5); WHITE BLOOD COUNT 21.2 x10^3/uL (4.0-11.0)
[2016-08-02 05:41] LABS: CALCIUM 7.9 mg/dL (8.5-10.1); CREATININE 0.7 mg/dL (0.6-1.0); GFR 96.4; POTASSIUM 3.8 mmol/L (3.5-5.1)
[2016-08-02] MEDS: PIPERACILLIN/TAZOBACTAM 3.375 GM in IV NORMAL SALINE 50ML 50 ML IV SCH ×5 (06:12→17:03)
[2016-08-02 07:00] VITALS: BP 89/53
[2016-08-02] MEDS: IV DEXTROSE 5%-LACT RINGERS 1,000 ML IV SCH ×2 (09:09→17:03)
--- NOTE | 2016-08-02 10:03 | PDOC ---
SURGICAL PROGRESS NOTE Subjective no new complaints mom at bedside reminded me she has asthma (she also smokes) Vital Signs Vital Signs Date Time Temp Pulse Resp B/P Pulse Ox O2 Delivery O2 Flow Rate FiO2 08/02/16 09:07 16 99 Room Air 08/02/16 07:00 98.1 86 89/53 98.1 I&O Intake and Output 08/02/16 07:00 Intake Total 1279.91 ml Output Total 500 ml Balance 779.91 ml Intake Oral 0 ml IV Total 1279.91 ml Output Urine Total 500 ml # Voids 1 PATIENT HAS A STOUT: No General: Alert, Oriented X3, No acute distress Abdomen: Soft, Other (mildly TTP in the RLQ) Labs Laboratory Tests Test 07/31/16 17:53 07/31/16 17:56 07/31/16 19:15 08/01/16 03:40 Influenza Type A Antigen Negative (NEGATIVE) Influenza Type B Antigen Negative (NEGATIVE) White Blood Count 14.9x10^3/uL (4.0-11.0) 14.7x10^3/uL (4.0-11.0) Red Blood Count 4.42x10^6/uL (3.50-5.40) 3.90x10^6/uL (3.50-5.40) Hemoglobin 9.5g/dL (12.0-15.5) 8.3g/dL (12.0-15.5) Hematocrit 30.6% (36.0-47.0) 27.4% (36.0-47.0) Mean Corpuscular Volume 69fL (79-100) 70fL (79-100) Mean Corpuscular Hemoglobin 21pg (25-35) 21pg (25-35) Mean Corpuscular Hemoglobin Concent 31g/dL (31-37) 30g/dL (31-37) Red Cell Distribution Width 18.5% (11.5-14.5) 18.3% (11.5-14.5) Platelet Count 368x10^3/uL (140-400) 311x10^3/uL (140-400) Neutrophils (%) (Auto) 85% (31-73) 93% (31-73) Lymphocytes (%) (Auto) 11% (24-48) 5% (24-48) Monocytes (%) (Auto) 3% (0-9) 2% (0-9) Eosinophils (%) (Auto) 1% (0-3) 0% (0-3) Basophils (%) (Auto) 0% (0-3) 0% (0-3) Neutrophils # (Auto) 12.6x10^3uL (1.8-7.7) 13.6x10^3uL (1.8-7.7) Lymphocytes # (Auto) 1.7x10^3/uL (1.0-4.8) 0.7x10^3/uL (1.0-4.8) Monocytes # (Auto) 0.5x10^3/uL (0.0-1.1) 0.4x10^3/uL (0.0-1.1) Eosinophils # (Auto) 0.1x10^3/uL (0.0-0.7) 0.0x10^3/uL (0.0-0.7) Basophils # (Auto) 0.1x10^3/uL (0.0-0.2) 0.0x10^3/uL (0.0-0.2) Segmented Neutrophils % 76% (35-66) Band Neutrophils % 9% (0-9) Lymphocytes % 12% (24-48) Monocytes % 3% (0-10) Toxic Granulation Slight Toxic Vacuolation Slight Platelet Estimate Adequate (ADEQUATE) Hypochromasia Mod Anisocytosis Slight Microcytosis Marked Ovalocytes Few Sodium Level 141mmol/L (136-145) 143mmol/L (136-145) Potassium Level 3.1mmol/L (3.5-5.1) 3.3mmol/L (3.5-5.1) Chloride Level 103mmol/L (98-107) 106mmol/L (98-107) Carbon Dioxide Level 29mmol/L (21-32) 24mmol/L (21-32) Anion Gap 9 (6-14) 13 (6-14) Blood Urea Nitrogen 10mg/dL (7-20) 8mg/dL (7-20) Creatinine 0.8mg/dL (0.6-1.0) 0.8mg/dL (0.6-1.0) Estimated GFR (Cockcroft-Gault) 82.6 82.6 BUN/Creatinine Ratio 13 (6-20) Glucose Level 156mg/dL (70-99) 95mg/dL (70-99) Lactic Acid Level 1.5mmol/L (0.4-2.0) Calcium Level 8.7mg/dL (8.5-10.1) 7.6mg/dL (8.5-10.1) Total Bilirubin 0.3mg/dL (0.2-1.0) Aspartate Amino Transf (AST/SGOT) 8U/L (15-37) Alanine Aminotransferase (ALT/SGPT) 11U/L (14-59) Alkaline Phosphatase 80U/L (46-116) Total Protein 7.4g/dL (6.4-8.2) Albumin 2.8g/dL (3.4-5.0) Albumin/Globulin Ratio 0.6 (1.0-1.7) Lipase 58U/L (73-393) Procalcitonin 0.16ng/mL (0.00-0.10) Urine Collection Type U cath Urine Color Genia Urine Clarity Clear Urine pH 6.0 Urine Specific [place] 1.025 Urine Protein Tracemg/dL (NEG-TRACE) Urine Glucose (UA) Negativemg/dL (NEG) Urine Ketones (Stick) Tracemg/dL (NEG) Urine Blood Negative (NEG) Urine Nitrite Negative (NEG) Urine Bilirubin Negative (NEG) Urine Urobilinogen Dipstick 1.0mg/dL (0.2 mg/dL) Urine Leukocyte Esterase Negative (NEG) Urine RBC 0/HPF (0-2) Urine WBC 1-4/HPF (0-4) Urine Squamous Epithelial Cells Mod/LPF Urine Amorphous Sediment Present/HPF Urine Bacteria Few/HPF (0-FEW) Urine Granular Casts Occasional/HPF Urine Mucus Marked/LPF Urine Test Negative (NEG) Test 08/01/16 13:45 08/02/16 03:44 08/02/16 08:46 White Blood Count 17.9x10^3/uL (4.0-11.0) 21.2x10^3/uL (4.0-11.0) Red Blood Count 3.83x10^6/uL (3.50-5.40) 3.62x10^6/uL (3.50-5.40) Hemoglobin 8.0g/dL (12.0-15.5) 7.5g/dL (12.0-15.5) Hematocrit 26.0% (36.0-47.0) 25.1% (36.0-47.0) Mean Corpuscular Volume 68fL (79-100) 69fL (79-100) Mean Corpuscular Hemoglobin 21pg (25-35) 21pg (25-35) Mean Corpuscular Hemoglobin Concent 31g/dL (31-37) 30g/dL (31-37) Red Cell Distribution Width 18.5% (11.5-14.5) 18.4% (11.5-14.5) Platelet Count 315x10^3/uL (140-400) 316x10^3/uL (140-400) Sodium Level 144mmol/L (136-145) Potassium Level 3.8mmol/L (3.5-5.1) Chloride Level 110mmol/L (98-107) Carbon Dioxide Level 24mmol/L (21-32) Anion Gap 10 (6-14) Blood Urea Nitrogen 15mg/dL (7-20) Creatinine 0.7mg/dL (0.6-1.0) Estimated GFR (Cockcroft-Gault) 96.4 Glucose Level 50mg/dL (70-99) Calcium Level 7.9mg/dL (8.5-10.1) Glucose (Fingerstick) 57mg/dL (70-99) Laboratory Tests Test 08/01/16 13:45 08/02/16 03:44 08/02/16 08:46 White Blood Count 17.9x10^3/uL (4.0-11.0) 21.2x10^3/uL (4.0-11.0) Red Blood Count 3.83x10^6/uL (3.50-5.40) 3.62x10^6/uL (3.50-5.40) Hemoglobin 8.0g/dL (12.0-15.5) 7.5g/dL (12.0-15.5) Hematocrit 26.0% (36.0-47.0) 25.1% (36.0-47.0) Mean Corpuscular Volume 68fL (79-100) 69fL (79-100) Mean Corpuscular Hemoglobin 21pg (25-35) 21pg (25-35) Mean Corpuscular Hemoglobin Concent 31g/dL (31-37) 30g/dL (31-37) Red Cell Distribution Width 18.5% (11.5-14.5) 18.4% (11.5-14.5) Platelet Count 315x10^3/uL (140-400) 316x10^3/uL (140-400) Sodium Level 144mmol/L (136-145) Potassium Level 3.8mmol/L (3.5-5.1) Chloride Level 110mmol/L (98-107) Carbon Dioxide Level 24mmol/L (21-32) Anion Gap 10 (6-14) Blood Urea Nitrogen 15mg/dL (7-20) Creatinine 0.7mg/dL (0.6-1.0) Estimated GFR (Cockcroft-Gault) 96.4 Glucose Level 50mg/dL (70-99) Calcium Level 7.9mg/dL (8.5-10.1) Glucose (Fingerstick) 57mg/dL (70-99) I have reviewed the following pelvic US shows right ovarian process accounting for the the CT findings Problem List Problems Medical Problems: (1) Ruptured appendicitis Status: Acute (2) Sepsis Status: Acute Assessment/Plan right ovarian cyst [employer]MULA CHECKER has been consulted await their recommendations Problems: MORENO PANDA MD Aug 02, 2016 10:03
[2016-08-02 11:00] VITALS: BP 93/61
[2016-08-02 15:00] VITALS: BP 97/59
--- NOTE | 2016-08-02 16:03 | PDOC2 ---
CONSULT Date of Consult Date of Consult DATE: 08/02/16 TIME: 15:57 Reason for Consult Reason for Consult: Ovarian cyst Referring Physician Referring Physician: Dr. Lizarraga Identification/Chief Complaint Chief Complaint Abd pain Source Source: Chart review, Patient History of Present Illness Reason for Visit: 35 y/o A1 presented to ED with c/o RLQ pain, fever and chills for past 2 days. She was seen in ED at and with UTI per patient. She then continue to feel bad and presented to [place] ED. CT scan and now pelvic sono indicate 5 cm ROV cyst. She reports having uterine didelphys. She recently delivered in the last few months and required D&C that was performed at [facility]. She also reports BTL. Past Medical History Psych: Anxiety Past Surgical History Past Surgical History: , Other (D&C and BTL) Family History Family History: No Significant Social History No ALCOHOL: rare Drugs: None Lives: with Family Current Problem List Problem List Problems Medical Problems: (1) Ruptured appendicitis Status: Acute (2) Sepsis Status: Acute Current Medications Current Medications Current Medications Sodium Chloride (Iv Sodium Chloride 0.9% 1000ml Bag) 1,000 ml @ 435 mls/hr Q2H18M IV Last administered on 07/31/16 20:24; Start 07/31/16 at 18:18; Stop 07/31/16 at 22:18; Status DC Iohexol (Omnipaque 300 Mg/ml) 75 ml 1X ONCE IV Last administered on 07/31/16 18:45; Start 07/31/16 at 18:45; Stop 07/31/16 at 18:47; Status DC Info (Do NOT chart on this entry -- for MONITORING) 1 each PRN DAILY PRN MC SEE COMMENTS; Start 07/31/16 at 19:00; Stop 08/02/16 at 18:59 Ondansetron HCl (Zofran) 4 mg 1X ONCE IV Last administered on 07/31/16 19:29; Start 07/31/16 at 19:15; Stop 07/31/16 at 19:16; Status DC Fentanyl Citrate (Fentanyl 2ml Vial) 50 mcg 1X ONCE IV Last administered on 19:30; Start 07/31/16 at 19:15; Stop 07/31/16 at 19:16; Status DC Piperacillin Sod/ Tazobactam Sod 1 each 1 each PRN DAILY PRN MC SEE COMMENTS; Start 07/31/16 at 20:15; Stop 08/01/16 at 15:01; Status DC Piperacillin Sod/ Tazobactam Sod/ Sodium Chloride (Zosyn/Iv Sodium Chloride 0.9 % 50ml) 50 ml @ 100 mls/hr 1X ONCE IV Last administered on 07/31/16 20:25; Start 07/31/16 at 20:15; Stop 07/31/16 at 20:44; Status DC Ondansetron HCl (Zofran) 4 mg PRN Q8HRS PRN IV NAUSEA/VOMITING Last administered on 08/01/16 19:28; Start 07/31/16 at 20:45; Stop 08/01/16 at 20:44; Status DC Fentanyl Citrate 50 mcg 50 mcg PRN Q2HR PRN IV SEVERE PAIN Last administered on 08/01/16 17:55; Start 07/31/16 at 20:45; Stop 08/01/16 at 18:15; Status DC Sodium Chloride 1,000 ml @ 150 mls/hr Q6H40M IV Last administered on 08/01/16 05:00; Start 07/31/16 at 21:00; Stop 08/01/16 at 11:09; Status DC Piperacillin Sod/ Tazobactam Sod 3.375 gm/Sodium Chloride 50 ml @ 100 mls/hr Q6HRS IV Last administered on 08/02/16 11:25; Start 08/01/16 at 00:00 Potassium Chloride/Sodium Chloride (KCl 20 Meq-NS 1,000 ml Iv Soln) 1,000 ml @ 150 mls/hr Q6H40M IV Last administered on 08/02/16 07:40; Start 08/01/16 at 11: 15; Stop 08/02/16 at 12:45; Status DC Fentanyl Citrate (Fentanyl 2ml Vial) 50 mcg PRN Q2HR PRN IV PAIN Last administered on 08/02/16 09:07; Start 08/01/16 at 18:15 Ketorolac Tromethamine (Toradol) 30 mg PRN Q6HRS PRN IV PAIN Last administered on 08/01/16 21:58; Start 08/01/16 at 19:00; Stop 08/06/16 at 18:59 Hydromorphone HCl 2 mg 2 mg PRN Q2HR PRN IV PAIN Last administered on 08/02/16 11:25; Start 08/01/16 at 19:00 Dextrose/Lactated Ringer's (Iv D5%-Lr) 1,000 ml @ 125 mls/hr Q8H IV Last administered on 08/02/16 09:09; Start 08/02/16 at 09:00 Active Scripts Active [place] 5-325 Tablet (Acetaminophen/Hydrocodone Bitart) 1 Each Tablet 1-2 Tab PO Q4-6HRS Augmentin 875-125 Tablet (Amoxicillin/Potassium Clav) 1 Each Tablet 1 Tab PO BID Reported Omeprazole 20 Mg Tablet.dr 20 Mg PO Citalopram Hbr (Citalopram Hydrobromide) 20 Mg Tablet 20 Mg PO Allergies Allergies: Coded Allergies: No Known Drug Allergies (Unverified , 11/11/13) ROS General: YES: Fatigue, Malaise, Night Sweats, No: Appetite, Chills, Other PSYCHOLOGICAL ROS: No: Anxiety, Behavioral Disorder, Concentration difficultie , Decreased libido, Depression, Disorientation, Hallucinations, Hostility, Irritablity, Memory difficulties, Mood Swings, Obsessive thoughts, Other, Physical abuse, Sexual abuse, Sleep disturbances, Suicidal ideation Eyes: No Blurry vision, No Decreased vision, No Double vision, No Dry eyes, No Excessive tearing, No Eye Pain, No Itchy Eyes, No Loss of vision, No Other, No Photophobia, No Scotomata, No Uses contacts, No Uses glasses HEENT: No: Epistaxis, Heacaches, Hearing change, Nasal congestion, Nasal discharge, Oral lesions, Other, Sinus pain, Sneezing, Snoring, Sore Throat, Tinnitus, Vertigo, Visual Changes, Vocal changes ALLERGY AND IMMUNOLOGY: No: Hives, Insect Bite Sensitivity, Itchy/Watery Eyes, Nasal Congestion, Other, Post Nasal Drip, Seasonal Allergies Hematological and Lymphatic: No: Bleeding Problems, Blood Clots, Blood Transfusions, Brusing, Night Sweats, Other, Pallor, Swollen Lymph Nodes ENDOCRINE: No: Breast Changes, Galactorrhea, Hair Pattern Changes, Hot Flashes , Malaise/lethargy, Mood Swings, Other, Palpitations, Polydipsia/polyuria, Skin Changes, Temperature Intolerance, Unexpected Weight Changes Breast: No New/Changing Breast Lumps, No Nipple changes, No Nipple discharge, No Other Respiratory: No: Cough, Hemoptysis, Orthopnea, Other, Pleuritic Pain, SOB with excertion, Shortness of breath, Sputum Changes, Stridor, Tachypnea, Wheezing Cardiovascular: No Chest Pain, No Edema, No Lt Headedness, No Orthopnea, No Other, No Palpitations, No Paroxysmal Noc. Dyspnea Gastrointestinal: Yes Abdominal Pain, No Constipation, No Diarrhea, No Hematochezia, No Melena, No Nausea, No Other , No Vomiting Genitourinary: No , No , No , No , No , No , No , No Discharge, No Dysuria, No Flank Pain, No Frequency, No Hematuria, No Incontinence, No Other, No Pain, No Retention, No Urgency Musculoskeletal: No Gait Disturbance, No Joint Pain, No Joint Stiffness, No Joint Swelling, No Muscle Pain, No Muscular Weakness, No Other, No Pain In:, No Swelling In: Neurological: No Behavorial Changes, No Bowel/Bladder ControlChng, No Confusion , No Dizziness, No Gait Disturbance, No Headaches, No Impaired Coord/balance, No Memory Loss, No Numbness/Tingling, No Other, No Seizures, No Speech Problems , No Tremors, No Visual Changes, No Weakness Physical Exam General: Alert, Oriented X3, Cooperative HEENT: Atraumatic Lungs: Clear to auscultation Heart: Regular rate Abdomen: Normal bowel sounds, Soft, No masses, Other (RLQ tenderness to deep palpation; no rebound tenderness or acute abdomen) Vitals VITALS Vital Signs Date Time Temp Pulse Resp B/P Pulse Ox O2 Delivery O2 Flow Rate FiO2 08/02/16 15:00 99.3 91 18 97/59 92 Room Air 99.3 Labs Labs Laboratory Tests Test 07/31/16 17:53 07/31/16 17:56 07/31/16 19:15 08/01/16 03:40 Influenza Type A Antigen Negative (NEGATIVE) Influenza Type B Antigen Negative (NEGATIVE) White Blood Count 14.9x10^3/uL (4.0-11.0) 14.7x10^3/uL (4.0-11.0) Red Blood Count 4.42x10^6/uL (3.50-5.40) 3.90x10^6/uL (3.50-5.40) Hemoglobin 9.5g/dL (12.0-15.5) 8.3g/dL (12.0-15.5) Hematocrit 30.6% (36.0-47.0) 27.4% (36.0-47.0) Mean Corpuscular Volume 69fL (79-100) 70fL (79-100) Mean Corpuscular Hemoglobin 21pg (25-35) 21pg (25-35) Mean Corpuscular Hemoglobin Concent 31g/dL (31-37) 30g/dL (31-37) Red Cell Distribution Width 18.5% (11.5-14.5) 18.3% (11.5-14.5) Platelet Count 368x10^3/uL (140-400) 311x10^3/uL (140-400) Neutrophils (%) (Auto) 85% (31-73) 93% (31-73) Lymphocytes (%) (Auto) 11% (24-48) 5% (24-48) Monocytes (%) (Auto) 3% (0-9) 2% (0-9) Eosinophils (%) (Auto) 1% (0-3) 0% (0-3) Basophils (%) (Auto) 0% (0-3) 0% (0-3) Neutrophils # (Auto) 12.6x10^3uL (1.8-7.7) 13.6x10^3uL (1.8-7.7) Lymphocytes # (Auto) 1.7x10^3/uL (1.0-4.8) 0.7x10^3/uL (1.0-4.8) Monocytes # (Auto) 0.5x10^3/uL (0.0-1.1) 0.4x10^3/uL (0.0-1.1) Eosinophils # (Auto) 0.1x10^3/uL (0.0-0.7) 0.0x10^3/uL (0.0-0.7) Basophils # (Auto) 0.1x10^3/uL (0.0-0.2) 0.0x10^3/uL (0.0-0.2) Segmented Neutrophils % 76% (35-66) Band Neutrophils % 9% (0-9) Lymphocytes % 12% (24-48) Monocytes % 3% (0-10) Toxic Granulation Slight Toxic Vacuolation Slight Platelet Estimate Adequate (ADEQUATE) Hypochromasia Mod Anisocytosis Slight Microcytosis Marked Ovalocytes Few Sodium Level 141mmol/L (136-145) 143mmol/L (136-145) Potassium Level 3.1mmol/L (3.5-5.1) 3.3mmol/L (3.5-5.1) Chloride Level 103mmol/L (98-107) 106mmol/L (98-107) Carbon Dioxide Level 29mmol/L (21-32) 24mmol/L (21-32) Anion Gap 9 (6-14) 13 (6-14) Blood Urea Nitrogen 10mg/dL (7-20) 8mg/dL (7-20) Creatinine 0.8mg/dL (0.6-1.0) 0.8mg/dL (0.6-1.0) Estimated GFR (Cockcroft-Gault) 82.6 82.6 BUN/Creatinine Ratio 13 (6-20) Glucose Level 156mg/dL (70-99) 95mg/dL (70-99) Lactic Acid Level 1.5mmol/L (0.4-2.0) Calcium Level 8.7mg/dL (8.5-10.1) 7.6mg/dL (8.5-10.1) Total Bilirubin 0.3mg/dL (0.2-1.0) Aspartate Amino Transf (AST/SGOT) 8U/L (15-37) Alanine Aminotransferase (ALT/SGPT) 11U/L (14-59) Alkaline Phosphatase 80U/L (46-116) Total Protein 7.4g/dL (6.4-8.2) Albumin 2.8g/dL (3.4-5.0) Albumin/Globulin Ratio 0.6 (1.0-1.7) Lipase 58U/L (73-393) Procalcitonin 0.16ng/mL (0.00-0.10) Urine Collection Type U cath Urine Color Genia Urine Clarity Clear Urine pH 6.0 Urine Specific Becker 1.025 Urine Protein Tracemg/dL (NEG-TRACE) Urine Glucose (UA) Negativemg/dL (NEG) Urine Ketones (Stick) Tracemg/dL (NEG) Urine Blood Negative (NEG) Urine Nitrite Negative (NEG) Urine Bilirubin Negative (NEG) Urine Urobilinogen Dipstick 1.0mg/dL (0.2 mg/dL) Urine Leukocyte Esterase Negative (NEG) Urine RBC 0/HPF (0-2) Urine WBC 1-4/HPF (0-4) Urine Squamous Epithelial Cells Mod/LPF Urine Amorphous Sediment Present/HPF Urine Bacteria Few/HPF (0-FEW) Urine Granular Casts Occasional/HPF Urine Mucus Marked/LPF Urine Test Negative (NEG) Test 08/01/16 13:45 08/02/16 03:44 08/02/16 08:46 White Blood Count 17.9x10^3/uL (4.0-11.0) 21.2x10^3/uL (4.0-11.0) Red Blood Count 3.83x10^6/uL (3.50-5.40) 3.62x10^6/uL (3.50-5.40) Hemoglobin 8.0g/dL (12.0-15.5) 7.5g/dL (12.0-15.5) Hematocrit 26.0% (36.0-47.0) 25.1% (36.0-47.0) Mean Corpuscular Volume 68fL (79-100) 69fL (79-100) Mean Corpuscular Hemoglobin 21pg (25-35) 21pg (25-35) Mean Corpuscular Hemoglobin Concent 31g/dL (31-37) 30g/dL (31-37) Red Cell Distribution Width 18.5% (11.5-14.5) 18.4% (11.5-14.5) Platelet Count 315x10^3/uL (140-400) 316x10^3/uL (140-400) Sodium Level 144mmol/L (136-145) Potassium Level 3.8mmol/L (3.5-5.1) Chloride Level 110mmol/L (98-107) Carbon Dioxide Level 24mmol/L (21-32) Anion Gap 10 (6-14) Blood Urea Nitrogen 15mg/dL (7-20) Creatinine 0.7mg/dL (0.6-1.0) Estimated GFR (Cockcroft-Gault) 96.4 Glucose Level 50mg/dL (70-99) Calcium Level 7.9mg/dL (8.5-10.1) Glucose (Fingerstick) 57mg/dL (70-99) Laboratory Tests Test 08/02/16 03:44 08/02/16 08:46 White Blood Count 21.2x10^3/uL (4.0-11.0) Red Blood Count 3.62x10^6/uL (3.50-5.40) Hemoglobin 7.5g/dL (12.0-15.5) Hematocrit 25.1% (36.0-47.0) Mean Corpuscular Volume 69fL (79-100) Mean Corpuscular Hemoglobin 21pg (25-35) Mean Corpuscular Hemoglobin Concent 30g/dL (31-37) Red Cell Distribution Width 18.4% (11.5-14.5) Platelet Count 316x10^3/uL (140-400) Sodium Level 144mmol/L (136-145) Potassium Level 3.8mmol/L (3.5-5.1) Chloride Level 110mmol/L (98-107) Carbon Dioxide Level 24mmol/L (21-32) Anion Gap 10 (6-14) Blood Urea Nitrogen 15mg/dL (7-20) Creatinine 0.7mg/dL (0.6-1.0) Estimated GFR (Cockcroft-Gault) 96.4 Glucose Level 50mg/dL (70-99) Calcium Level 7.9mg/dL (8.5-10.1) Glucose (Fingerstick) 57mg/dL (70-99) Assessment/Plan Assessment/Plan A: ROV cyst P: Continue with IV fluids and IV abx. [facility] and possible appendectomy. Plan for surgery on Thursday morning. JAREN SENIOR Jr, MD Aug 02, 2016 16:02
--- NOTE | 2016-08-02 17:55 | PDOC ---
GENERAL General: vss with tmax of 99.6. less uncomfortable today. abdomen much softer. Hb decreased to 7.5 and WBC increased to 21.1K. BMP is ok. Small gram - rods in1/ 2 blood cultures. Slightly complex right ovarian cyst on transvaginal us. [employer] plans to do right ovarian cystectomy with possible appendectomy noted. Confusing picture with fevers, leukocytosis, positive blood cultures, right ovarian cyst causing pain vs ruptured appendix. will ask for ID opinion and continue same as she is clinically improving. Problems: VITAL SIGNS Vital Signs: Vital Signs Date Time Temp Pulse Resp B/P Pulse Ox O2 Delivery O2 Flow Rate FiO2 08/02/16 17:33 18 92 Room Air 08/02/16 15:00 99.3 91 97/59 99.3 I & O I & O Intake and Output 08/02/16 07:00 Intake Total 1279.91 ml Output Total 500 ml Balance 779.91 ml Intake Oral 0 ml IV Total 1279.91 ml Output Urine Total 500 ml # Voids 1 ALLERGIES Allergies: Allergies Coded Allergies Type Severity Reaction Last Updated Verified No Known Drug Allergies 11/11/13 No MEDS Medications: Current Medications Medications (Trade) Dose Ordered Sig/Rocky Start Time Stop Time Status Last Admin Dose Admin Dextrose/Lactated Ringer's (Iv D5%-Lr) 1,000 ml @ 125 mls/hr Q8H 08/02/16 09:00 08/02/16 17:03 125 MLS/HR Fentanyl Citrate (Fentanyl 2ml Vial) 50 mcg PRN Q2HR PRN 08/01/16 18:15 08/02/16 09:07 50 MCG Fentanyl Citrate 50 mcg 50 mcg PRN Q2HR PRN 07/31/16 20:45 08/01/16 18:15 DC 08/01/16 17:55 50 MCG Hydromorphone HCl 2 mg 2 mg PRN Q2HR PRN 08/01/16 19:00 08/02/16 17:03 2 MG Info (Do NOT chart on this entry -- for MONITORING) 1 each PRN DAILY PRN 07/31/16 19:00 08/02/16 18:59 Iohexol (Omnipaque 300 Mg/ml) 75 ml 1X ONCE 07/31/16 18:45 07/31/16 18:47 DC 07/31/16 18:45 75 ML Ketorolac Tromethamine (Toradol) 30 mg PRN Q6HRS PRN 08/01/16 19:00 08/06/16 18:59 08/01/16 21:58 30 MG Ondansetron HCl (Zofran) 4 mg PRN Q8HRS PRN 07/31/16 20:45 08/01/16 20:44 DC 08/01/16 19:28 4 MG Piperacillin Sod/ Tazobactam Sod 3.375 gm/Sodium Chloride 50 ml @ 100 mls/hr Q6HRS 08/01/16 00:00 08/02/16 17:03 100 MLS/HR Piperacillin Sod/ Tazobactam Sod 1 each 1 each PRN DAILY PRN 07/31/16 20:15 08/01/16 15:01 DC Piperacillin Sod/ Tazobactam Sod/ Sodium Chloride (Zosyn/Iv Sodium Chloride 0.9% 50ml) 50 ml @ 100 mls/hr 1X ONCE 07/31/16 20:15 07/31/16 20:44 DC 07/31/16 20:25 100 MLS/HR Potassium Chloride/Sodium Chloride (KCl 20 Meq-NS 1,000 ml Iv Soln) 1,000 ml @ 150 mls/hr Q6H40M 08/01/16 11:15 08/02/16 12:45 DC 08/02/16 07:40 150 MLS/HR Sodium Chloride 1,000 ml @ 150 mls/hr Q6H40M 07/31/16 21:00 08/01/16 11:09 DC 08/01/16 05:00 150 MLS/HR Sodium Chloride (Iv Sodium Chloride 0.9% 1000ml Bag) 1,000 ml @ 435 mls/hr Q2H18M 07/31/16 18:18 07/31/16 22:18 DC 07/31/16 20:24 435 MLS/HR LAB Lab: Laboratory Tests Test 08/02/16 03:44 08/02/16 08:46 White Blood Count 21.2x10^3/uL (4.0-11.0) Red Blood Count 3.62x10^6/uL (3.50-5.40) Hemoglobin 7.5g/dL (12.0-15.5) Hematocrit 25.1% (36.0-47.0) Mean Corpuscular Volume 69fL (79-100) Mean Corpuscular Hemoglobin 21pg (25-35) Mean Corpuscular Hemoglobin Concent 30g/dL (31-37) Red Cell Distribution Width 18.4% (11.5-14.5) Platelet Count 316x10^3/uL (140-400) Sodium Level 144mmol/L (136-145) Potassium Level 3.8mmol/L (3.5-5.1) Chloride Level 110mmol/L (98-107) Carbon Dioxide Level 24mmol/L (21-32) Anion Gap 10 (6-14) Blood Urea Nitrogen 15mg/dL (7-20) Creatinine 0.7mg/dL (0.6-1.0) Estimated GFR (Cockcroft-Gault) 96.4 Glucose Level 50mg/dL (70-99) Calcium Level 7.9mg/dL (8.5-10.1) Glucose (Fingerstick) 57mg/dL (70-99) KEVIN GARCIA MD Aug 02, 2016 17:55
[2016-08-02 18:18] LABS: % SAT IRON 4 % (15-34); IRON,SERUM 6 ug/dL (50-170)
[2016-08-02 19:00] VITALS: BP 116/78
[2016-08-02 23:00] VITALS: BP 100/59
[2016-08-03] MEDS: HYDROMORPHONE 2 MG/ML VIAL. IV PRN ×4 (01:50→23:23)
[2016-08-03] MEDS: ACETAMINOPHEN 325 MG TABLET. PO PRN ×3 (02:38→23:44)
[2016-08-03] MEDS: IV DEXTROSE 5%-LACT RINGERS 1,000 ML IV SCH ×3 (02:39→17:25)
[2016-08-03 03:00] VITALS: BP 94/60
[2016-08-03] MEDS: PIPERACILLIN/TAZOBACTAM 3.375 GM in IV NORMAL SALINE 50ML 50 ML IV SCH ×6 (05:30→23:36)
[2016-08-03 06:27] LABS: BASO % 0 % (0-3); EOS % 0 % (0-3); HEMATOCRIT 24.1 % (36.0-47.0); HEMOGLOBIN 7.2 g/dL (12.0-15.5); LYMPH # 1.3 x10^3/uL (1.0-4.8); LYMPH % 7 % (24-48); MEAN CORPUSCULAR HEMOGLOBIN 21 pg (25-35); MEAN CORPUSCULAR HGB CONC 30 g/dL (31-37); MEAN CORPUSCULAR VOLUME 70 fL (79-100); MONO % 3 % (0-9); NEUT % 90 % (31-73); PLATELET COUNT 311 x10^3/uL (140-400); RED BLOOD COUNT 3.46 x10^6/uL (3.50-5.40); RED CELL DISTRIBUTION WIDTH 18.9 % (11.5-14.5); WHITE BLOOD COUNT 17.7 x10^3/uL (4.0-11.0)
[2016-08-03 06:48] LABS: ALBUMIN 1.6 g/dL (3.4-5.0); ALBUMIN/GLOBULIN RATIO 0.4 (1.0-1.7); CREATININE 0.6 mg/dL (0.6-1.0); GFR 115.1; POTASSIUM 3.3 mmol/L (3.5-5.1); TOTAL BILIRUBIN 0.2 mg/dL (0.2-1.0); TOTAL PROTEIN 5.4 g/dL (6.4-8.2)
[2016-08-03 07:00] VITALS: BP 91/61
[2016-08-03] MEDS: KETOROLAC TROMETHAMINE 30 MG/ML SYRINGE. IV PRN (08:27)
--- NOTE | 2016-08-03 10:42 | PDOC ---
SURGICAL PROGRESS NOTE Subjective no new complaints feels about the same Vital Signs Vital Signs Date Time Temp Pulse Resp B/P Pulse Ox O2 Delivery O2 Flow Rate FiO2 08/03/16 07:00 99.5 96 18 91/61 98 Room Air 99.5 I&O Intake and Output 08/03/16 07:00 Intake Total 3060 ml Balance 3060 ml Intake Oral 900 ml IV Total 910 ml Blood Product IV Normal Saline Flush 1250 ml # Voids 1 General: Alert, Oriented X3, Cooperative, No acute distress Abdomen: Soft, Other (ND, mild RLQ TTP) Labs Laboratory Tests Test 08/01/16 13:45 08/02/16 03:44 08/02/16 08:46 08/03/16 06:00 White Blood Count 17.9x10^3/uL (4.0-11.0) 21.2x10^3/uL (4.0-11.0) 17.7x10^3/uL (4.0-11.0) Red Blood Count 3.83x10^6/uL (3.50-5.40) 3.62x10^6/uL (3.50-5.40) 3.46x10^6/uL (3.50-5.40) Hemoglobin 8.0g/dL (12.0-15.5) 7.5g/dL (12.0-15.5) 7.2g/dL (12.0-15.5) Hematocrit 26.0% (36.0-47.0) 25.1% (36.0-47.0) 24.1% (36.0-47.0) Mean Corpuscular Volume 68fL (79-100) 69fL (79-100) 70fL (79-100) Mean Corpuscular Hemoglobin 21pg (25-35) 21pg (25-35) 21pg (25-35) Mean Corpuscular Hemoglobin Concent 31g/dL (31-37) 30g/dL (31-37) 30g/dL (31-37) Red Cell Distribution Width 18.5% (11.5-14.5) 18.4% (11.5-14.5) 18.9% (11.5-14.5) Platelet Count 315x10^3/uL (140-400) 316x10^3/uL (140-400) 311x10^3/uL (140-400) Sodium Level 144mmol/L (136-145) 140mmol/L (136-145) Potassium Level 3.8mmol/L (3.5-5.1) 3.3mmol/L (3.5-5.1) Chloride Level 110mmol/L (98-107) 106mmol/L (98-107) Carbon Dioxide Level 24mmol/L (21-32) 27mmol/L (21-32) Anion Gap 10 (6-14) 7 (6-14) Blood Urea Nitrogen 15mg/dL (7-20) 12mg/dL (7-20) Creatinine 0.7mg/dL (0.6-1.0) 0.6mg/dL (0.6-1.0) Estimated GFR (Cockcroft-Gault) 96.4 115.1 Glucose Level 50mg/dL (70-99) 98mg/dL (70-99) Calcium Level 7.9mg/dL (8.5-10.1) 8.0mg/dL (8.5-10.1) Iron Level 6ug/dL (50-170) Total Iron Binding Capacity 159ug/dL (250-450) Iron Saturation 4% (15-34) Glucose (Fingerstick) 57mg/dL (70-99) Neutrophils (%) (Auto) 90% (31-73) Lymphocytes (%) (Auto) 7% (24-48) Monocytes (%) (Auto) 3% (0-9) Eosinophils (%) (Auto) 0% (0-3) Basophils (%) (Auto) 0% (0-3) Neutrophils # (Auto) 15.9x10^3uL (1.8-7.7) Lymphocytes # (Auto) 1.3x10^3/uL (1.0-4.8) Monocytes # (Auto) 0.5x10^3/uL (0.0-1.1) Eosinophils # (Auto) 0.1x10^3/uL (0.0-0.7) Basophils # (Auto) 0.0x10^3/uL (0.0-0.2) BUN/Creatinine Ratio 20 (6-20) Total Bilirubin 0.2mg/dL (0.2-1.0) Aspartate Amino Transf (AST/SGOT) 11U/L (15-37) Alanine Aminotransferase (ALT/SGPT) 6U/L (14-59) Alkaline Phosphatase 65U/L (46-116) Total Protein 5.4g/dL (6.4-8.2) Albumin 1.6g/dL (3.4-5.0) Albumin/Globulin Ratio 0.4 (1.0-1.7) Laboratory Tests Test 08/03/16 06:00 White Blood Count 17.7x10^3/uL (4.0-11.0) Red Blood Count 3.46x10^6/uL (3.50-5.40) Hemoglobin 7.2g/dL (12.0-15.5) Hematocrit 24.1% (36.0-47.0) Mean Corpuscular Volume 70fL (79-100) Mean Corpuscular Hemoglobin 21pg (25-35) Mean Corpuscular Hemoglobin Concent 30g/dL (31-37) Red Cell Distribution Width 18.9% (11.5-14.5) Platelet Count 311x10^3/uL (140-400) Neutrophils (%) (Auto) 90% (31-73) Lymphocytes (%) (Auto) 7% (24-48) Monocytes (%) (Auto) 3% (0-9) Eosinophils (%) (Auto) 0% (0-3) Basophils (%) (Auto) 0% (0-3) Neutrophils # (Auto) 15.9x10^3uL (1.8-7.7) Lymphocytes # (Auto) 1.3x10^3/uL (1.0-4.8) Monocytes # (Auto) 0.5x10^3/uL (0.0-1.1) Eosinophils # (Auto) 0.1x10^3/uL (0.0-0.7) Basophils # (Auto) 0.0x10^3/uL (0.0-0.2) Sodium Level 140mmol/L (136-145) Potassium Level 3.3mmol/L (3.5-5.1) Chloride Level 106mmol/L (98-107) Carbon Dioxide Level 27mmol/L (21-32) Anion Gap 7 (6-14) Blood Urea Nitrogen 12mg/dL (7-20) Creatinine 0.6mg/dL (0.6-1.0) Estimated GFR (Cockcroft-Gault) 115.1 BUN/Creatinine Ratio 20 (6-20) Glucose Level 98mg/dL (70-99) Calcium Level 8.0mg/dL (8.5-10.1) Total Bilirubin 0.2mg/dL (0.2-1.0) Aspartate Amino Transf (AST/SGOT) 11U/L (15-37) Alanine Aminotransferase (ALT/SGPT) 6U/L (14-59) Alkaline Phosphatase 65U/L (46-116) Total Protein 5.4g/dL (6.4-8.2) Albumin 1.6g/dL (3.4-5.0) Albumin/Globulin Ratio 0.4 (1.0-1.7) Problem List Problems Medical Problems: (1) Ruptured appendicitis Status: Acute (2) Sepsis Status: Acute Assessment/Plan Right ovarian cyst [employer] note reviewed, plans for OR thursday Problems: AUSTIN MEZA APRN Aug 03, 2016 10:42
[2016-08-03 11:00] VITALS: BP 96/47
[2016-08-03 15:00] VITALS: BP 129/62
--- NOTE | 2016-08-03 15:38 | PDOC ---
SURGICAL PROGRESS NOTE Subjective PT. feeling better and pain controlled. Counseled on [facility]C ROV cystectomy for tomorrow. Vital Signs Vital Signs Date Time Temp Pulse Resp B/P Pulse Ox O2 Delivery O2 Flow Rate FiO2 08/03/16 14:45 Room Air 08/03/16 11:00 97.9 85 18 96/47 90 97.9 I&O Intake and Output 08/03/16 07:00 Intake Total 3060 ml Balance 3060 ml Intake Oral 900 ml IV Total 910 ml Blood Product IV Normal Saline Flush 1250 ml # Voids 1 PATIENT HAS A STOUT: No General: Alert, Oriented X3, Cooperative HEENT: Atraumatic Lungs: Clear to auscultation Heart: Regular rate Abdomen: Normal bowel sounds, Soft, No masses, Other (No change in exam.) Psych/Mental Status: Mental status NL Labs Laboratory Tests Test 08/02/16 03:44 08/02/16 08:46 08/03/16 06:00 White Blood Count 21.2x10^3/uL (4.0-11.0) 17.7x10^3/uL (4.0-11.0) Red Blood Count 3.62x10^6/uL (3.50-5.40) 3.46x10^6/uL (3.50-5.40) Hemoglobin 7.5g/dL (12.0-15.5) 7.2g/dL (12.0-15.5) Hematocrit 25.1% (36.0-47.0) 24.1% (36.0-47.0) Mean Corpuscular Volume 69fL (79-100) 70fL (79-100) Mean Corpuscular Hemoglobin 21pg (25-35) 21pg (25-35) Mean Corpuscular Hemoglobin Concent 30g/dL (31-37) 30g/dL (31-37) Red Cell Distribution Width 18.4% (11.5-14.5) 18.9% (11.5-14.5) Platelet Count 316x10^3/uL (140-400) 311x10^3/uL (140-400) Sodium Level 144mmol/L (136-145) 140mmol/L (136-145) Potassium Level 3.8mmol/L (3.5-5.1) 3.3mmol/L (3.5-5.1) Chloride Level 110mmol/L (98-107) 106mmol/L (98-107) Carbon Dioxide Level 24mmol/L (21-32) 27mmol/L (21-32) Anion Gap 10 (6-14) 7 (6-14) Blood Urea Nitrogen 15mg/dL (7-20) 12mg/dL (7-20) Creatinine 0.7mg/dL (0.6-1.0) 0.6mg/dL (0.6-1.0) Estimated GFR (Cockcroft-Gault) 96.4 115.1 Glucose Level 50mg/dL (70-99) 98mg/dL (70-99) Calcium Level 7.9mg/dL (8.5-10.1) 8.0mg/dL (8.5-10.1) Iron Level 6ug/dL (50-170) Total Iron Binding Capacity 159ug/dL (250-450) Iron Saturation 4% (15-34) Glucose (Fingerstick) 57mg/dL (70-99) Neutrophils (%) (Auto) 90% (31-73) Lymphocytes (%) (Auto) 7% (24-48) Monocytes (%) (Auto) 3% (0-9) Eosinophils (%) (Auto) 0% (0-3) Basophils (%) (Auto) 0% (0-3) Neutrophils # (Auto) 15.9x10^3uL (1.8-7.7) Lymphocytes # (Auto) 1.3x10^3/uL (1.0-4.8) Monocytes # (Auto) 0.5x10^3/uL (0.0-1.1) Eosinophils # (Auto) 0.1x10^3/uL (0.0-0.7) Basophils # (Auto) 0.0x10^3/uL (0.0-0.2) BUN/Creatinine Ratio 20 (6-20) Total Bilirubin 0.2mg/dL (0.2-1.0) Aspartate Amino Transf (AST/SGOT) 11U/L (15-37) Alanine Aminotransferase (ALT/SGPT) 6U/L (14-59) Alkaline Phosphatase 65U/L (46-116) Total Protein 5.4g/dL (6.4-8.2) Albumin 1.6g/dL (3.4-5.0) Albumin/Globulin Ratio 0.4 (1.0-1.7) Laboratory Tests Test 08/03/16 06:00 White Blood Count 17.7x10^3/uL (4.0-11.0) Red Blood Count 3.46x10^6/uL (3.50-5.40) Hemoglobin 7.2g/dL (12.0-15.5) Hematocrit 24.1% (36.0-47.0) Mean Corpuscular Volume 70fL (79-100) Mean Corpuscular Hemoglobin 21pg (25-35) Mean Corpuscular Hemoglobin Concent 30g/dL (31-37) Red Cell Distribution Width 18.9% (11.5-14.5) Platelet Count 311x10^3/uL (140-400) Neutrophils (%) (Auto) 90% (31-73) Lymphocytes (%) (Auto) 7% (24-48) Monocytes (%) (Auto) 3% (0-9) Eosinophils (%) (Auto) 0% (0-3) Basophils (%) (Auto) 0% (0-3) Neutrophils # (Auto) 15.9x10^3uL (1.8-7.7) Lymphocytes # (Auto) 1.3x10^3/uL (1.0-4.8) Monocytes # (Auto) 0.5x10^3/uL (0.0-1.1) Eosinophils # (Auto) 0.1x10^3/uL (0.0-0.7) Basophils # (Auto) 0.0x10^3/uL (0.0-0.2) Sodium Level 140mmol/L (136-145) Potassium Level 3.3mmol/L (3.5-5.1) Chloride Level 106mmol/L (98-107) Carbon Dioxide Level 27mmol/L (21-32) Anion Gap 7 (6-14) Blood Urea Nitrogen 12mg/dL (7-20) Creatinine 0.6mg/dL (0.6-1.0) Estimated GFR (Cockcroft-Gault) 115.1 BUN/Creatinine Ratio 20 (6-20) Glucose Level 98mg/dL (70-99) Calcium Level 8.0mg/dL (8.5-10.1) Total Bilirubin 0.2mg/dL (0.2-1.0) Aspartate Amino Transf (AST/SGOT) 11U/L (15-37) Alanine Aminotransferase (ALT/SGPT) 6U/L (14-59) Alkaline Phosphatase 65U/L (46-116) Total Protein 5.4g/dL (6.4-8.2) Albumin 1.6g/dL (3.4-5.0) Albumin/Globulin Ratio 0.4 (1.0-1.7) Problem List Problems Medical Problems: (1) Ruptured appendicitis Status: Acute (2) Sepsis Status: Acute Assessment/Plan A: ROV cyst P: Continue IV abx. WBC decreased. NPO after midnight. Plan for LPSC ROV cystectomy. Problems: JAREN SENIOR Jr, MD Aug 03, 2016 15:38
[2016-08-03 19:00] VITALS: BP 107/68
--- NOTE | 2016-08-03 19:19 | PDOC ---
GENERAL General: vss with tmax 101.8. abdominal tenderness has really decreased and wbc decreased to 17.7K. gram neg maria del carmen on blood culture without ID/sensitivities yet. help surgery appreciated. surgery tomorrow. Hb decreased to 7.2. Fe levels low. Albumin level of 1.6. blood pressures on low side. suspect tuboovarian abcess as culprit. Problems: VITAL SIGNS Vital Signs: Vital Signs Date Time Temp Pulse Resp B/P Pulse Ox O2 Delivery O2 Flow Rate FiO2 08/03/16 18:13 Room Air 08/03/16 17:42 101.8 101.8 08/03/16 15:00 79 18 129/62 92 I & O I & O Intake and Output 08/03/16 07:00 Intake Total 3060 ml Balance 3060 ml Intake Oral 900 ml IV Total 910 ml Blood Product IV Normal Saline Flush 1250 ml # Voids 1 ALLERGIES Allergies: Allergies Coded Allergies Type Severity Reaction Last Updated Verified No Known Drug Allergies 11/11/13 No MEDS Medications: Current Medications Medications (Trade) Dose Ordered Sig/Rocky Start Time Stop Time Status Last Admin Dose Admin Acetaminophen (Tylenol) 650 mg PRN Q6HRS PRN 08/03/16 02:45 08/03/16 17:25 650 MG Dextrose/Lactated Ringer's (Iv D5%-Lr) 1,000 ml @ 125 mls/hr Q8H 08/02/16 09:00 08/03/16 17:25 125 MLS/HR Fentanyl Citrate (Fentanyl 2ml Vial) 50 mcg PRN Q2HR PRN 08/01/16 18:15 08/02/16 09:07 50 MCG Fentanyl Citrate 50 mcg 50 mcg PRN Q2HR PRN 07/31/16 20:45 08/01/16 18:15 DC 08/01/16 17:55 50 MCG Hydromorphone HCl 2 mg 2 mg PRN Q2HR PRN 08/01/16 19:00 08/03/16 17:31 2 MG Info (Do NOT chart on this entry -- for MONITORING) 1 each PRN DAILY PRN 07/31/16 19:00 08/02/16 18:59 DC Iohexol (Omnipaque 300 Mg/ml) 75 ml 1X ONCE 07/31/16 18:45 07/31/16 18:47 DC 07/31/16 18:45 75 ML Ketorolac Tromethamine (Toradol) 30 mg PRN Q6HRS PRN 08/01/16 19:00 08/06/16 18:59 08/03/16 08:27 30 MG Ondansetron HCl (Zofran) 4 mg PRN Q8HRS PRN 07/31/16 20:45 08/01/16 20:44 DC 08/01/16 19:28 4 MG Piperacillin Sod/ Tazobactam Sod 3.375 gm/Sodium Chloride 50 ml @ 100 mls/hr Q6HRS 08/01/16 00:00 08/03/16 17:25 100 MLS/HR Piperacillin Sod/ Tazobactam Sod 1 each 1 each PRN DAILY PRN 07/31/16 20:15 08/01/16 15:01 DC Piperacillin Sod/ Tazobactam Sod/ Sodium Chloride (Zosyn/Iv Sodium Chloride 0.9% 50ml) 50 ml @ 100 mls/hr 1X ONCE 07/31/16 20:15 07/31/16 20:44 DC 07/31/16 20:25 100 MLS/HR Potassium Chloride/Sodium Chloride (KCl 20 Meq-NS 1,000 ml Iv Soln) 1,000 ml @ 150 mls/hr Q6H40M 08/01/16 11:15 08/02/16 12:45 DC 08/02/16 07:40 150 MLS/HR Sodium Chloride 1,000 ml @ 150 mls/hr Q6H40M 07/31/16 21:00 08/01/16 11:09 DC 08/01/16 05:00 150 MLS/HR Sodium Chloride (Iv Sodium Chloride 0.9% 1000ml Bag) 1,000 ml @ 435 mls/hr Q2H18M 07/31/16 18:18 07/31/16 22:18 DC 07/31/16 20:24 435 MLS/HR LAB Lab: Laboratory Tests Test 08/03/16 06:00 White Blood Count 17.7x10^3/uL (4.0-11.0) Red Blood Count 3.46x10^6/uL (3.50-5.40) Hemoglobin 7.2g/dL (12.0-15.5) Hematocrit 24.1% (36.0-47.0) Mean Corpuscular Volume 70fL (79-100) Mean Corpuscular Hemoglobin 21pg (25-35) Mean Corpuscular Hemoglobin Concent 30g/dL (31-37) Red Cell Distribution Width 18.9% (11.5-14.5) Platelet Count 311x10^3/uL (140-400) Neutrophils (%) (Auto) 90% (31-73) Lymphocytes (%) (Auto) 7% (24-48) Monocytes (%) (Auto) 3% (0-9) Eosinophils (%) (Auto) 0% (0-3) Basophils (%) (Auto) 0% (0-3) Neutrophils # (Auto) 15.9x10^3uL (1.8-7.7) Lymphocytes # (Auto) 1.3x10^3/uL (1.0-4.8) Monocytes # (Auto) 0.5x10^3/uL (0.0-1.1) Eosinophils # (Auto) 0.1x10^3/uL (0.0-0.7) Basophils # (Auto) 0.0x10^3/uL (0.0-0.2) Sodium Level 140mmol/L (136-145) Potassium Level 3.3mmol/L (3.5-5.1) Chloride Level 106mmol/L (98-107) Carbon Dioxide Level 27mmol/L (21-32) Anion Gap 7 (6-14) Blood Urea Nitrogen 12mg/dL (7-20) Creatinine 0.6mg/dL (0.6-1.0) Estimated GFR (Cockcroft-Gault) 115.1 BUN/Creatinine Ratio 20 (6-20) Glucose Level 98mg/dL (70-99) Calcium Level 8.0mg/dL (8.5-10.1) Total Bilirubin 0.2mg/dL (0.2-1.0) Aspartate Amino Transf (AST/SGOT) 11U/L (15-37) Alanine Aminotransferase (ALT/SGPT) 6U/L (14-59) Alkaline Phosphatase 65U/L (46-116) Total Protein 5.4g/dL (6.4-8.2) Albumin 1.6g/dL (3.4-5.0) Albumin/Globulin Ratio 0.4 (1.0-1.7) APPLKEVIN MD Aug 03, 2016 19:19
[2016-08-03] MEDS: FERROUS SULFATE 325 MG TABLET PO SCH (21:49)
[2016-08-03 23:00] VITALS: BP 119/72
[2016-08-04] VITALS (14 sets, daily range): BP systolic 91–108; BP diastolic 55–74
[2016-08-04] MEDS: IV DEXTROSE 5%-LACT RINGERS 1,000 ML IV SCH ×2 (01:00→09:00)
[2016-08-04 05:03] LABS: BASO % 0 % (0-3); EOS % 0 % (0-3); HEMOGLOBIN 7.1 g/dL (12.0-15.5); LYMPH # 1.1 x10^3/uL (1.0-4.8); LYMPH % 7 % (24-48); MEAN CORPUSCULAR HEMOGLOBIN 21 pg (25-35); MEAN CORPUSCULAR HGB CONC 31 g/dL (31-37); MEAN CORPUSCULAR VOLUME 68 fL (79-100); MONO % 3 % (0-9); NEUT % 89 % (31-73); PLATELET COUNT 311 x10^3/uL (140-400); RED BLOOD COUNT 3.38 x10^6/uL (3.50-5.40); RED CELL DISTRIBUTION WIDTH 18.6 % (11.5-14.5); WHITE BLOOD COUNT 15.7 x10^3/uL (4.0-11.0)
[2016-08-04 05:46] LABS: CALCIUM 7.9 mg/dL (8.5-10.1); CREATININE 0.6 mg/dL (0.6-1.0); GFR 115.1; POTASSIUM 3.1 mmol/L (3.5-5.1)
[2016-08-04] MEDS: PIPERACILLIN/TAZOBACTAM 3.375 GM in IV NORMAL SALINE 50ML 50 ML IV SCH ×5 (06:09→18:00)
[2016-08-04] MEDS ORDERED: PROPOFOL 20 ML IV ONE (07:07)
[2016-08-04] MEDS ORDERED: LIDOCAINE 2% 100 MG/5 ML DISP.SYRIN. ONE (07:07)
[2016-08-04] MEDS ORDERED: ONDANSETRON PF 4 MG/2 ML VIAL. ONE (07:07)
[2016-08-04] MEDS ORDERED: FAMOTIDINE 20 MG/2 ML VIAL ONE (07:07)
[2016-08-04] MEDS ORDERED: KETOROLAC 30 MG/ML SYRINGE FOR OR. INJ ONE (07:07)
[2016-08-04] MEDS ORDERED: MIDAZOLAM HCL 2 MG/2 ML VIAL. ONE (07:08)
[2016-08-04] MEDS ORDERED: FENTANYL PF 100 MCG/2 ML VIAL. ONE ×2 (07:08→08:12)
[2016-08-04] MEDS ORDERED: ROCURONIUM 50 MG/5 ML VIAL. ONE (07:08)
[2016-08-04] MEDS ORDERED: SURGICEL HEMOSTAT 4X8 EACH. ONE (07:21)
[2016-08-04] MEDS ORDERED: BUPIVACAINE-EPI 0.5%-1:200000 50 ML VIAL. ONE (07:21)
[2016-08-04] MEDS ORDERED: ACETAMINOPHEN INTRAVENOUS 100 ML IV ONE (07:23)
[2016-08-04] MEDS ORDERED: IV RINGERS,LACTATED 1000ML 1,000 ML IV SCH (07:27)
[2016-08-04] MEDS ORDERED: PROCHLORPERAZINE 10 MG/2 ML VIAL. IV PRN ×2 (07:30→09:45)
[2016-08-04] MEDS ORDERED: FENTANYL PF 100 MCG/2 ML VIAL. IV PRN ×2 (07:30)
[2016-08-04] MEDS ORDERED: HYDROMORPHONE 2 MG/ML VIAL. IV PRN (07:30)
[2016-08-04] MEDS ORDERED: LIDOCAINE 1% 1 ML SYRINGE. ID PRN (07:30)
[2016-08-04] MEDS ORDERED: ONDANSETRON PF 4 MG/2 ML VIAL. IV PRN ×2 (07:30→09:45)
[2016-08-04] MEDS ORDERED: MORPHINE SULFATE 2 MG/ML DISP.SYRIN. IV PRN (07:30)
[2016-08-04 07:51] LABS: ANISOCYTOSIS SLIGHT; HYPOCHROMIA MOD; MICROCYTOSIS MOD; PLT ESTIMATE ADEQUATE (ADEQUATE)
[2016-08-04] MEDS: FERROUS SULFATE 325 MG TABLET PO SCH (08:00)
[2016-08-04] MEDS ORDERED: MORPHINE SULFATE 10 MG/ML VIAL. ONE (08:35)
[2016-08-04] MEDS ORDERED: CIPROFLOXACIN 400MG PREMIX 200 ML IV SCH (09:00)
[2016-08-04] MEDS ORDERED: GLYCOPYRROLATE 1 MG/5 ML VIAL. ONE (09:21)
[2016-08-04] MEDS ORDERED: NEOSTIGMINE METHYLSULFATE 5 MG/5 ML SYRINGE. ONE (09:21)
[2016-08-04] MEDS ORDERED: SEVOFLURANE 61 TO 120 MINUTES. IH ONE (09:32)
--- NOTE | 2016-08-04 09:39 | PDOC ---
BRIEF OPERATIVE NOTE Pre-Op Diagnosis ROV Cyst Post-Op Diagnosis Right Tubo-Ovarian Abscess [facility] Sur[facility] Barba Anesthesia Type: General Blood Loss 50 ml Specimens Obtained Right fallopian tube and Right ovary Findings Right Tubo-Ovarian abscess with pelvic adhesions Complications none Additional Remarks ptJAREN Ann Jr, MD Aug 04, 2016 09:39
[2016-08-04] MEDS ORDERED: KETOROLAC TROMETHAMINE 30 MG/ML SYRINGE. IV PRN (09:45)
[2016-08-04] MEDS ORDERED: DEXTROSE 50% 25 GM / 50ML DISP.SYRIN. IV PRN (09:45)
[2016-08-04] MEDS ORDERED: DIPHENHYDRAMINE HCL 25 MG CAPSULE PO PRN (09:45)
[2016-08-04] MEDS ORDERED: DIPHENHYDRAMINE 50 MG/ML VIAL IV PRN (09:45)
[2016-08-04] MEDS ORDERED: ZOLPIDEM 5 MG TABLET. PO PRN (09:45)
[2016-08-04] MEDS ORDERED: 0.9 % SODIUM CHLORIDE 10 ML DISP.SYRIN. IV PRN (09:45)
[2016-08-04] MEDS ORDERED: CALCIUM CARBONATE 500 MG TAB.CHEW PO PRN (09:45)
[2016-08-04] MEDS ORDERED: SIMETHICONE 80 MG TAB.CHEW PO PRN (09:45)
--- NOTE | 2016-08-04 10:50 | PDOC ---
PROGRESS NOTES Subjective Subjective Pt in surgery this am. Objective Objective VSS. Tmax 101.8. Vital Signs Date Time Temp Pulse Resp B/P Pulse Ox O2 Delivery O2 Flow Rate FiO2 08/04/16 10:28 98.8 96 17 116/57 94 Nasal Cannula 2 98.8 Intake and Output 08/04/16 07:00 # Voids 5 Assessment Assessment Problems Medical Problems: (1) Ruptured appendicitis Status: Acute (2) Sepsis Status: Acute (3) Tubo-ovarian abscess Status: Acute Plan Plan of Care 1. RLQ abdominal pain with ruptured appendix vs right Tubo-Ovarian abscess with pelvic adhesions -1 week hx of RLQ pain with n/v and febrile status. -CT showing RLQ abscess with phlegmon, likely from ruptured appendix. -WBC 14.9 upon admission, 15.7 this am -Zosyn IV -Surgery consulting -Site Manager consulting -Interventional radiology consulting, drain placement defered due to likely tubo-ovarian cyst. 2. Anemia, unknown origin -Hgb 8.2 upon admission, 7.1 this am -Iron level low. Ferrous Sulfate added on 08/03 -Recheck CBC in am 3. Hypokalemia -Added 20mEq to NS on 08/01, stopped when IVF changed to D5. Restarted this am. -Recheck BMP in am Comment Review of Relevant I have reviewed the following items conchita (where applicable) has been applied. Labs Laboratory Tests Test 08/03/16 06:00 08/04/16 03:55 White Blood Count 17.7x10^3/uL (4.0-11.0) 15.7x10^3/uL (4.0-11.0) Red Blood Count 3.46x10^6/uL (3.50-5.40) 3.38x10^6/uL (3.50-5.40) Hemoglobin 7.2g/dL (12.0-15.5) 7.1g/dL (12.0-15.5) Hematocrit 24.1% (36.0-47.0) 23.0% (36.0-47.0) Mean Corpuscular Volume 70fL (79-100) 68fL (79-100) Mean Corpuscular Hemoglobin 21pg (25-35) 21pg (25-35) Mean Corpuscular Hemoglobin Concent 30g/dL (31-37) 31g/dL (31-37) Red Cell Distribution Width 18.9% (11.5-14.5) 18.6% (11.5-14.5) Platelet Count 311x10^3/uL (140-400) 311x10^3/uL (140-400) Neutrophils (%) (Auto) 90% (31-73) 89% (31-73) Lymphocytes (%) (Auto) 7% (24-48) 7% (24-48) Monocytes (%) (Auto) 3% (0-9) 3% (0-9) Eosinophils (%) (Auto) 0% (0-3) 0% (0-3) Basophils (%) (Auto) 0% (0-3) 0% (0-3) Neutrophils # (Auto) 15.9x10^3uL (1.8-7.7) 14.0x10^3uL (1.8-7.7) Lymphocytes # (Auto) 1.3x10^3/uL (1.0-4.8) 1.1x10^3/uL (1.0-4.8) Monocytes # (Auto) 0.5x10^3/uL (0.0-1.1) 0.5x10^3/uL (0.0-1.1) Eosinophils # (Auto) 0.1x10^3/uL (0.0-0.7) 0.1x10^3/uL (0.0-0.7) Basophils # (Auto) 0.0x10^3/uL (0.0-0.2) 0.0x10^3/uL (0.0-0.2) Sodium Level 140mmol/L (136-145) 137mmol/L (136-145) Potassium Level 3.3mmol/L (3.5-5.1) 3.1mmol/L (3.5-5.1) Chloride Level 106mmol/L (98-107) 106mmol/L (98-107) Carbon Dioxide Level 27mmol/L (21-32) 27mmol/L (21-32) Anion Gap 7 (6-14) 4 (6-14) Blood Urea Nitrogen 12mg/dL (7-20) 9mg/dL (7-20) Creatinine 0.6mg/dL (0.6-1.0) 0.6mg/dL (0.6-1.0) Estimated GFR (Cockcroft-Gault) 115.1 115.1 BUN/Creatinine Ratio 20 (6-20) Glucose Level 98mg/dL (70-99) 99mg/dL (70-99) Calcium Level 8.0mg/dL (8.5-10.1) 7.9mg/dL (8.5-10.1) Total Bilirubin 0.2mg/dL (0.2-1.0) Aspartate Amino Transf (AST/SGOT) 11U/L (15-37) Alanine Aminotransferase (ALT/SGPT) 6U/L (14-59) Alkaline Phosphatase 65U/L (46-116) Total Protein 5.4g/dL (6.4-8.2) Albumin 1.6g/dL (3.4-5.0) Albumin/Globulin Ratio 0.4 (1.0-1.7) Segmented Neutrophils % 86% (35-66) Lymphocytes % 12% (24-48) Monocytes % 2% (0-10) Platelet Estimate Adequate (ADEQUATE) Hypochromasia Mod Anisocytosis Slight Microcytosis Mod Laboratory Tests Test 08/04/16 03:55 White Blood Count 15.7x10^3/uL (4.0-11.0) Red Blood Count 3.38x10^6/uL (3.50-5.40) Hemoglobin 7.1g/dL (12.0-15.5) Hematocrit 23.0% (36.0-47.0) Mean Corpuscular Volume 68fL (79-100) Mean Corpuscular Hemoglobin 21pg (25-35) Mean Corpuscular Hemoglobin Concent 31g/dL (31-37) Red Cell Distribution Width 18.6% (11.5-14.5) Platelet Count 311x10^3/uL (140-400) Neutrophils (%) (Auto) 89% (31-73) Lymphocytes (%) (Auto) 7% (24-48) Monocytes (%) (Auto) 3% (0-9) Eosinophils (%) (Auto) 0% (0-3) Basophils (%) (Auto) 0% (0-3) Neutrophils # (Auto) 14.0x10^3uL (1.8-7.7) Lymphocytes # (Auto) 1.1x10^3/uL (1.0-4.8) Monocytes # (Auto) 0.5x10^3/uL (0.0-1.1) Eosinophils # (Auto) 0.1x10^3/uL (0.0-0.7) Basophils # (Auto) 0.0x10^3/uL (0.0-0.2) Segmented Neutrophils % 86% (35-66) Lymphocytes % 12% (24-48) Monocytes % 2% (0-10) Platelet Estimate Adequate (ADEQUATE) Hypochromasia Mod Anisocytosis Slight Microcytosis Mod Sodium Level 137mmol/L (136-145) Potassium Level 3.1mmol/L (3.5-5.1) Chloride Level 106mmol/L (98-107) Carbon Dioxide Level 27mmol/L (21-32) Anion Gap 4 (6-14) Blood Urea Nitrogen 9mg/dL (7-20) Creatinine 0.6mg/dL (0.6-1.0) Estimated GFR (Cockcroft-Gault) 115.1 Glucose Level 99mg/dL (70-99) Calcium Level 7.9mg/dL (8.5-10.1) Microbiology 08/01/16 Blood Culture - Preliminary, Resulted NO GROWTH AFTER 3 DAYS Medications Current Medications Sodium Chloride (Iv Sodium Chloride 0.9% 1000ml Bag) 1,000 ml @ 435 mls/hr Q2H18M IV Last administered on 07/31/16 20:24; Start 07/31/16 at 18:18; Stop 07/31/16 at 22:18; Status DC Iohexol (Omnipaque 300 Mg/ml) 75 ml 1X ONCE IV Last administered on 07/31/16 18:45; Start 07/31/16 at 18:45; Stop 07/31/16 at 18:47; Status DC Info (Do NOT chart on this entry -- for MONITORING) 1 each PRN DAILY PRN MC SEE COMMENTS; Start 07/31/16 at 19:00; Stop 08/02/16 at 18:59; Status DC Ondansetron HCl (Zofran) 4 mg 1X ONCE IV Last administered on 07/31/16 19:29; Start 07/31/16 at 19:15; Stop 07/31/16 at 19:16; Status DC Fentanyl Citrate (Fentanyl 2ml Vial) 50 mcg 1X ONCE IV Last administered on 19:30; Start 07/31/16 at 19:15; Stop 07/31/16 at 19:16; Status DC Piperacillin Sod/ Tazobactam Sod 1 each 1 each PRN DAILY PRN MC SEE COMMENTS; Start 07/31/16 at 20:15; Stop 08/01/16 at 15:01; Status DC Piperacillin Sod/ Tazobactam Sod/ Sodium Chloride (Zosyn/Iv Sodium Chloride 0.9 % 50ml) 50 ml @ 100 mls/hr 1X ONCE IV Last administered on 07/31/16 20:25; Start 07/31/16 at 20:15; Stop 07/31/16 at 20:44; Status DC Ondansetron HCl (Zofran) 4 mg PRN Q8HRS PRN IV NAUSEA/VOMITING Last administered on 08/01/16 19:28; Start 07/31/16 at 20:45; Stop 08/01/16 at 20:44; Status DC Fentanyl Citrate 50 mcg 50 mcg PRN Q2HR PRN IV SEVERE PAIN Last administered on 08/01/16 17:55; Start 07/31/16 at 20:45; Stop 08/01/16 at 18:15; Status DC Sodium Chloride 1,000 ml @ 150 mls/hr Q6H40M IV Last administered on 08/01/16 05:00; Start 07/31/16 at 21:00; Stop 08/01/16 at 11:09; Status DC Piperacillin Sod/ Tazobactam Sod 3.375 gm/Sodium Chloride 50 ml @ 100 mls/hr Q6HRS IV Last administered on 08/04/16 06:09; Start 08/01/16 at 00:00 Potassium Chloride/Sodium Chloride (KCl 20 Meq-NS 1,000 ml Iv Soln) 1,000 ml @ 150 mls/hr Q6H40M IV Last administered on 08/02/16 07:40; Start 08/01/16 at 11: 15; Stop 08/02/16 at 12:45; Status DC Fentanyl Citrate (Fentanyl 2ml Vial) 50 mcg PRN Q2HR PRN IV PAIN Last administered on 08/02/16 09:07; Start 08/01/16 at 18:15 Ketorolac Tromethamine (Toradol) 30 mg PRN Q6HRS PRN IV PAIN Last administered on 08/03/16 08:27; Start 08/01/16 at 19:00; Stop 08/06/16 at 18:59 Hydromorphone HCl 2 mg 2 mg PRN Q2HR PRN IV PAIN Last administered on 08/03/16 23:23; Start 08/01/16 at 19:00 Dextrose/Lactated Ringer's (Iv D5%-Lr) 1,000 ml @ 125 mls/hr Q8H IV Last administered on 08/03/16 17:25; Start 08/02/16 at 09:00 Acetaminophen (Tylenol) 650 mg PRN Q6HRS PRN PO MILD PAIN / TEMP Last administered on 08/03/16 23:44; Start 08/03/16 at 02:45 Ferrous Sulfate 325 mg 325 mg [id number] PO Last administered on 08/03/16 21:49 ; Start 08/03/16 at 20:00 Propofol (Diprivan) 20 ml @ As Directed STK-MED ONCE IV ; Start 08/04/16 at 07:07 ; Stop 08/04/16 at 07:08; Status DC Lidocaine HCl 100 mg STK-MED ONCE .ROUTE ; Start 08/04/16 at 07:07; Stop 08/04/16 at 07:08; Status DC Famotidine (Pepcid) 20 mg STK-MED ONCE .ROUTE ; Start 08/04/16 at 07:07; Stop 08/04/16 at 07:08; Status DC Ondansetron HCl (Zofran) 4 mg STK-MED ONCE .ROUTE ; Start 08/04/16 at 07:07; Stop 08/04/16 at 07:08; Status DC Ketorolac Tromethamine (Toradol For Or Only) 30 mg STK-MED ONCE INJ ; Start 08/04 at 07:07; Stop 08/04/16 at 07:08; Status DC Midazolam HCl (Versed) 2 mg STK-MED ONCE .ROUTE ; Start 08/04/16 at 07:08; Stop 08/04/16 at 07:09; Status DC Fentanyl Citrate (Fentanyl 2ml Vial) 100 mcg STK-MED ONCE .ROUTE ; Start at 07:08; Stop 08/04/16 at 07:09; Status DC Rocuronium [place] (Zemuron) 50 mg STK-MED ONCE .ROUTE ; Start 08/04/16 at 07:08 ; Stop 08/04/16 at 07:09; Status DC Bupivacaine HCl/ Epinephrine Bitart (Marcaine-Epi 0.5%-1:[id number]) 50 ml STK-MED ONCE .ROUTE Last administered on 08/04/16 08:46; Start 08/04/16 at 07:21; Stop 08/04/16 at 07:22; Status DC Cellulose 1 each 1 each STK-MED ONCE .ROUTE ; Start 08/04/16 at 07:21; Stop at 07:22; Status DC Acetaminophen (Ofirmev) 100 ml @ As Directed STK-MED ONCE IV ; Start 08/04/16 at 07:23; Stop 08/04/16 at 07:24; Status DC Ondansetron HCl (Zofran) 4 mg PRN Q6HRS PRN IV Nausea; Start 08/04/16 at 07:30; Stop 08/04/16 at 18:00 Fentanyl Citrate (Fentanyl 2ml Vial) 25 mcg PRN Q5MIN PRN IV MILD PAIN; Start 08/04/16 at 07:30; Stop 08/04/16 at 18:00 Fentanyl Citrate (Fentanyl 2ml Vial) 50 mcg PRN Q5MIN PRN IV MODERATE PAIN Last administered on 08/04/16 09:58; Start 08/04/16 at 07:30; Stop 08/04/16 at 18: 00 Morphine Sulfate 1 mg 1 mg PRN Q10MIN PRN IV SEVERE PAIN; Start 08/04/16 at 07: 30; Stop 08/04/16 at 18:00 Lactated Ringer's (Iv Lactated Ringers) 1,000 ml @ 30 mls/hr Q24H IV Last administered on 08/04/16 07:34; Start 08/04/16 at 07:27; Stop 08/04/16 at 19:26 Lidocaine HCl 2 ml 1X PRN PRN ID IV START; Start 08/04/16 at 07:30; Stop at 18:00 Hydromorphone HCl (Dilaudid) 0.5 mg PRN Q10MIN PRN IV SEV PAIN,Second choice; Start 08/04/16 at 07:30; Stop 08/04/16 at 18:00 Prochlorperazine Edisylate (Compazine) 5 mg PACU PRN PRN IV NAUSEA Last administered on 08/04/16 09:57; Start 08/04/16 at 07:30; Stop 08/04/16 at 18:00 Fentanyl Citrate (Fentanyl 2ml Vial) 100 mcg STK-MED ONCE .ROUTE ; Start at 08:12; Stop 08/04/16 at 08:13; Status DC Morphine Sulfate 10 mg 10 mg STK-MED ONCE .ROUTE ; Start 08/04/16 at 08:35; Stop 08/04/16 at 08:36; Status DC Ciprofloxacin Lactate (Cipro 400mg Premix) 200 ml @ 200 mls/hr Q12HR IV Last administered on 08/04/16 09:57; Start 08/04/16 at 09:00 Glycopyrrolate (Robinul) 1 mg STK-MED ONCE .ROUTE ; Start 08/04/16 at 09:21; Stop 08/04/16 at 09:22; Status DC Neostigmine Methylsulfate 5 mg STK-MED ONCE .ROUTE ; Start 08/04/16 at 09:21; Stop 08/04/16 at 09:22; Status DC Sevoflurane (Ultane) 60 ml STK-MED ONCE IH ; Start 08/04/16 at 09:32; Stop at 09:33; Status DC Calcium Carbonate/ Glycine (Tums) 500 mg PRN Q3HRS PRN PO HEARTBURN / GAS; Start 08/04/16 at 09:45 Simethicone (Gas-X) 80 mg PRN AFTMEALHC PRN PO GAS / BLOATING; Start 08/04/16 at 09:45 Zolpidem Tartrate (Ambien) 5 mg PRN QHS PRN PO INSOMNIA, MAY REPEAT IN 1HR; Start 08/04/16 at 09:45 Diphenhydramine HCl (Benadryl) 25 mg PRN Q6HRS PRN PO ITCHING; Start 08/04/16 at 09:45 Diphenhydramine HCl (Benadryl) 25 mg PRN Q6HRS PRN IV ITCHING; Start 08/04/16 at 09:45 Sodium Chloride (Normal Saline Flush) 3 ml QSHIFT PRN IV AFTER MEDS AND BLOOD DRAWS; Start 08/04/16 at 09:45 Dextrose 12.5 gm PRN Q15MIN PRN IV SEE COMMENTS; Start 08/04/16 at 09:45 Oxycodone/ Acetaminophen (Percocet 5/325) 2 tab PRN Q4HRS PRN PO MODERATE PAIN , SEVERE PAIN; Start 08/04/16 at 09:45 Ketorolac Tromethamine (Toradol) 30 mg PRN Q6HRS PRN IV PAIN; Start 08/04/16 at 09:45; Stop 08/09/16 at 09:44 Gabapentin (Neurontin) 600 mg Q8HRS PO ; Start 08/04/16 at 11:00 Ondansetron HCl (Zofran) 4 mg PRN Q6HRS PRN IV NAUESA, 1ST CHOICE; Start at 09:45 Prochlorperazine Edisylate 5 mg 5 mg PRN Q6HRS PRN IV N/V, 2nd Choice, MR X1; Start 08/04/16 at 09:45 Piperacillin Sod/ Tazobactam Sod 3.375 gm/Sodium Chloride 50 ml @ 100 mls/hr Q6HRS IV ; Start 08/04/16 at 11:00 Metronidazole (FLAGYL 500Mmg PREMIX) 100 ml @ 100 mls/hr Q12HR IV ; Start at 11:00 Active Scripts Active Rudyard 5-325 Tablet (Acetaminophen/Hydrocodone Bitart) 1 Each Tablet 1-2 Tab PO Q4-6HRS Augmentin 875-125 Tablet (Amoxicillin/Potassium Clav) 1 Each Tablet 1 Tab PO BID Reported Omeprazole 20 Mg Tablet.dr 20 Mg PO Citalopram Hbr (Citalopram Hydrobromide) 20 Mg Tablet 20 Mg PO Vitals/I & O Vital Sign - Last 24 Hours 08/03/16 08/03/16 08/03/16 08/03/16 11:00 14:12 15:00 17:31 Temp 97.9 99.4 97.9 99.4 Pulse 85 79 Resp 18 18 B/P 96/47 129/62 Pulse Ox 90 92 O2 Delivery Room Air Room Air Room Air Room Air 08/03/16 08/03/16 08/03/16 08/03/16 17:42 19:00 20:00 23:00 Temp 101.8 99.9 100.6 101.8 99.9 100.6 Pulse 110 113 Resp 18 18 B/P 107/68 119/72 Pulse Ox 99 99 O2 Delivery Room Air Room Air Room Air 08/03/16 08/03/16 08/04/16 08/04/16 23:23 23:59 03:00 07:15 Temp 98.5 100.7 98.5 100.7 Pulse 93 111 Resp 16 16 18 20 B/P 104/60 115/75 Pulse Ox 94 94 O2 Delivery Room Air Room Air Room Air Room Air 08/04/16 08/04/16 08/04/16 08/04/16 09:43 09:43 09:58 09:58 Temp 98.8 98.8 98.8 98.8 Pulse 96 87 Resp 15 15 15 B/P 129/75 115/59 Pulse Ox 100 100 100 O2 Delivery Room Air Simple Mask Simple Mask Simple Mask O2 Flow Rate 10 10.0 10.0 08/04/16 08/04/16 10:13 10:28 Temp 98.8 98.8 98.8 98.8 Pulse 87 96 Resp 17 B/P 109/62 116/57 Pulse Ox 94 94 O2 Delivery Room Air Nasal Cannula O2 Flow Rate 2 KEVIN GARCIA MD Aug 04, 2016 10:50
[2016-08-04] MEDS ORDERED: LACT RINGERS IV SCH (11:00)
[2016-08-04] MEDS: GABAPENTIN 300 MG CAPSULE. PO SCH ×2 (11:00→22:00)
[2016-08-04] MEDS ORDERED: DEXTROSE 5% IV SCH (11:00)
[2016-08-04] MEDS ORDERED: POTASSIUM CHLORIDE IV SCH (11:00)
[2016-08-04] MEDS: METRONIDAZOLE 500mg PREMIX 100 ML IV SCH ×2 (11:20→21:06)
--- NOTE | 2016-08-04 12:11 | PDOC ---
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 08/04/16 1211: SURGICAL PROGRESS NOTE Subjective pain managed urinating nausea at times Vital Signs Vital Signs Date Time Temp Pulse Resp B/P Pulse Ox O2 Delivery O2 Flow Rate FiO2 08/04/16 11:30 90 16 97/56 96 Nasal Cannula 2.0 08/04/16 11:00 98.1 98.1 I&O Intake and Output 08/04/16 07:00 # Voids 5 General: Alert, Oriented X3, Cooperative, No acute distress Abdomen: Soft, Other (dressings dry ) Labs Laboratory Tests Test 08/03/16 06:00 08/04/16 03:55 White Blood Count 17.7x10^3/uL (4.0-11.0) 15.7x10^3/uL (4.0-11.0) Red Blood Count 3.46x10^6/uL (3.50-5.40) 3.38x10^6/uL (3.50-5.40) Hemoglobin 7.2g/dL (12.0-15.5) 7.1g/dL (12.0-15.5) Hematocrit 24.1% (36.0-47.0) 23.0% (36.0-47.0) Mean Corpuscular Volume 70fL (79-100) 68fL (79-100) Mean Corpuscular Hemoglobin 21pg (25-35) 21pg (25-35) Mean Corpuscular Hemoglobin Concent 30g/dL (31-37) 31g/dL (31-37) Red Cell Distribution Width 18.9% (11.5-14.5) 18.6% (11.5-14.5) Platelet Count 311x10^3/uL (140-400) 311x10^3/uL (140-400) Neutrophils (%) (Auto) 90% (31-73) 89% (31-73) Lymphocytes (%) (Auto) 7% (24-48) 7% (24-48) Monocytes (%) (Auto) 3% (0-9) 3% (0-9) Eosinophils (%) (Auto) 0% (0-3) 0% (0-3) Basophils (%) (Auto) 0% (0-3) 0% (0-3) Neutrophils # (Auto) 15.9x10^3uL (1.8-7.7) 14.0x10^3uL (1.8-7.7) Lymphocytes # (Auto) 1.3x10^3/uL (1.0-4.8) 1.1x10^3/uL (1.0-4.8) Monocytes # (Auto) 0.5x10^3/uL (0.0-1.1) 0.5x10^3/uL (0.0-1.1) Eosinophils # (Auto) 0.1x10^3/uL (0.0-0.7) 0.1x10^3/uL (0.0-0.7) Basophils # (Auto) 0.0x10^3/uL (0.0-0.2) 0.0x10^3/uL (0.0-0.2) Sodium Level 140mmol/L (136-145) 137mmol/L (136-145) Potassium Level 3.3mmol/L (3.5-5.1) 3.1mmol/L (3.5-5.1) Chloride Level 106mmol/L (98-107) 106mmol/L (98-107) Carbon Dioxide Level 27mmol/L (21-32) 27mmol/L (21-32) Anion Gap 7 (6-14) 4 (6-14) Blood Urea Nitrogen 12mg/dL (7-20) 9mg/dL (7-20) Creatinine 0.6mg/dL (0.6-1.0) 0.6mg/dL (0.6-1.0) Estimated GFR (Cockcroft-Gault) 115.1 115.1 BUN/Creatinine Ratio 20 (6-20) Glucose Level 98mg/dL (70-99) 99mg/dL (70-99) Calcium Level 8.0mg/dL (8.5-10.1) 7.9mg/dL (8.5-10.1) Total Bilirubin 0.2mg/dL (0.2-1.0) Aspartate Amino Transf (AST/SGOT) 11U/L (15-37) Alanine Aminotransferase (ALT/SGPT) 6U/L (14-59) Alkaline Phosphatase 65U/L (46-116) Total Protein 5.4g/dL (6.4-8.2) Albumin 1.6g/dL (3.4-5.0) Albumin/Globulin Ratio 0.4 (1.0-1.7) Segmented Neutrophils % 86% (35-66) Lymphocytes % 12% (24-48) Monocytes % 2% (0-10) Platelet Estimate Adequate (ADEQUATE) Hypochromasia Mod Anisocytosis Slight Microcytosis Mod Laboratory Tests Test 08/04/16 03:55 White Blood Count 15.7x10^3/uL (4.0-11.0) Red Blood Count 3.38x10^6/uL (3.50-5.40) Hemoglobin 7.1g/dL (12.0-15.5) Hematocrit 23.0% (36.0-47.0) Mean Corpuscular Volume 68fL (79-100) Mean Corpuscular Hemoglobin 21pg (25-35) Mean Corpuscular Hemoglobin Concent 31g/dL (31-37) Red Cell Distribution Width 18.6% (11.5-14.5) Platelet Count 311x10^3/uL (140-400) Neutrophils (%) (Auto) 89% (31-73) Lymphocytes (%) (Auto) 7% (24-48) Monocytes (%) (Auto) 3% (0-9) Eosinophils (%) (Auto) 0% (0-3) Basophils (%) (Auto) 0% (0-3) Neutrophils # (Auto) 14.0x10^3uL (1.8-7.7) Lymphocytes # (Auto) 1.1x10^3/uL (1.0-4.8) Monocytes # (Auto) 0.5x10^3/uL (0.0-1.1) Eosinophils # (Auto) 0.1x10^3/uL (0.0-0.7) Basophils # (Auto) 0.0x10^3/uL (0.0-0.2) Segmented Neutrophils % 86% (35-66) Lymphocytes % 12% (24-48) Monocytes % 2% (0-10) Platelet Estimate Adequate (ADEQUATE) Hypochromasia Mod Anisocytosis Slight Microcytosis Mod Sodium Level 137mmol/L (136-145) Potassium Level 3.1mmol/L (3.5-5.1) Chloride Level 106mmol/L (98-107) Carbon Dioxide Level 27mmol/L (21-32) Anion Gap 4 (6-14) Blood Urea Nitrogen 9mg/dL (7-20) Creatinine 0.6mg/dL (0.6-1.0) Estimated GFR (Cockcroft-Gault) 115.1 Glucose Level 99mg/dL (70-99) Calcium Level 7.9mg/dL (8.5-10.1) Problem List Problems Medical Problems: (1) Ruptured appendicitis Status: Acute (2) Sepsis Status: Acute (3) Tubo-ovarian abscess Status: Acute Assessment/Plan s/p tubo-ovarian abscess reviewed op note as per [employer], will sign off, please call with questions Problems: RAMON ALCANTAR MD 08/04/16 1543: SURGICAL PROGRESS NOTE Assessment/Plan Agree with Saúl's assessment and plan. Problems: AUSTIN MEZA APRN Aug 04, 2016 12:11 RAMON ALCANTAR MD Aug 04, 2016 15:43
--- NOTE | 2016-08-04 12:51 | PDOC ---
Infectious Disease Note ROS ROS GEN: Denies fevers, chills, sweats HEENT: Denies blurred vision, sore throat CV: Denies chest pain RESP: Denies shortness of air, cough GI: Denies n/v/d NEURO: Denies confusion, dizziness MSK: Denies weakness, joint pain/swelling Vital Sign Vital Signs Vital Signs Date Time Temp Pulse Resp B/P Pulse Ox O2 Delivery O2 Flow Rate FiO2 08/04/16 11:30 90 16 97/56 96 Nasal Cannula 2.0 08/04/16 11:00 98.1 98.1 Physical Exam PHYSICAL EXAM GENERAL: NAD, Alert HEENT: PERRL, OC/OP NECK: Supple, no JVD, no LN LUNGS: Clear HEART: S1S2, no gallop, no murmur ABD: Soft, NT, no organomegaly, no rebound EXT: No edema, no cyanosis 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: Alert, oriented x 3, no focal neurologic deficit SKIN: No rash IV: ok Labs Lab Laboratory Tests Test 08/04/16 03:55 White Blood Count 15.7x10^3/uL (4.0-11.0) Red Blood Count 3.38x10^6/uL (3.50-5.40) Hemoglobin 7.1g/dL (12.0-15.5) Hematocrit 23.0% (36.0-47.0) Mean Corpuscular Volume 68fL (79-100) Mean Corpuscular Hemoglobin 21pg (25-35) Mean Corpuscular Hemoglobin Concent 31g/dL (31-37) Red Cell Distribution Width 18.6% (11.5-14.5) Platelet Count 311x10^3/uL (140-400) Neutrophils (%) (Auto) 89% (31-73) Lymphocytes (%) (Auto) 7% (24-48) Monocytes (%) (Auto) 3% (0-9) Eosinophils (%) (Auto) 0% (0-3) Basophils (%) (Auto) 0% (0-3) Neutrophils # (Auto) 14.0x10^3uL (1.8-7.7) Lymphocytes # (Auto) 1.1x10^3/uL (1.0-4.8) Monocytes # (Auto) 0.5x10^3/uL (0.0-1.1) Eosinophils # (Auto) 0.1x10^3/uL (0.0-0.7) Basophils # (Auto) 0.0x10^3/uL (0.0-0.2) Segmented Neutrophils % 86% (35-66) Lymphocytes % 12% (24-48) Monocytes % 2% (0-10) Platelet Estimate Adequate (ADEQUATE) Hypochromasia Mod Anisocytosis Slight Microcytosis Mod Sodium Level 137mmol/L (136-145) Potassium Level 3.1mmol/L (3.5-5.1) Chloride Level 106mmol/L (98-107) Carbon Dioxide Level 27mmol/L (21-32) Anion Gap 4 (6-14) Blood Urea Nitrogen 9mg/dL (7-20) Creatinine 0.6mg/dL (0.6-1.0) Estimated GFR (Cockcroft-Gault) 115.1 Glucose Level 99mg/dL (70-99) Calcium Level 7.9mg/dL (8.5-10.1) Objective Assessment Fever ? from Abscess vs ? 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
[2016-08-04] MEDS: KETOROLAC TROMETHAMINE 30 MG/ML SYRINGE. IV PRN (16:30)
--- NOTE | 2016-08-04 20:44 | OP ---
DATE OF SURGERY: PREOPERATIVE DIAGNOSES: Right ovarian cyst. POSTOPERATIVE DIAGNOSES: Right tubo-ovarian abscess. PROCEDURE: Laparoscopic RSO. SURGEON: Theodore Barba MD. ANESTHESIA: GETA. ESTIMATED BLOOD LOSS: 50 mL. COMPLICATIONS: None. FINDINGS: Right tubo-ovarian abscess with pelvic adhesions and abdominal wall adhesions. SUMMARY: A 35-year-old with abdominal pain and was admitted to the hospital. The patient was evaluated by myself as well as General Surgery. She was determined on a pelvic sonogram to have a right ovarian cyst of 3.5 cm size. Patient was provided pain management and then we proceeded to the operating room. She was consented for laparoscopic right ovarian cystectomy with possibility of RSO and appendectomy. The patient voiced clear understanding and desired to proceed. DESCRIPTION OF PROCEDURE: The patient was taken to surgery suite and placed in dorsal lithotomy position. She was prepped with Betadine solution for vaginal prep and ChloraPrep for abdominal prep. After adequate anesthesia, bivalve speculum was placed vaginally and anterior lip of the cervix grasped with a single tooth tenaculum. The [place] uterine manipulator was then placed. The bivalve speculum was removed. Attention was now placed on the abdomen. Small transverse skin incision was made just below the umbilicus with a scalpel. A Veress needle was then placed through the infraumbilical incision site. The abdomen was allowed to insufflate up to 1.5 liters of CO2 gas. The Veress needle was then removed. A 5 mm trocar was placed. The scope was positioned. There were multiple abdominal wall adhesions as well as pelvic sidewall adhesions and a right tubo-ovarian abscess. Two additional incisions made in the left lower quadrant with a scalpel and 5 mm and 11 mm ports were placed. With the aid of graspers and suction irrigation the adhesions were removed bluntly. The abscess did not involve the appendix and was limited to the right tube and ovary with primary focus on the ovary. The EnSeal device was utilized to coagulate and dissect the right infundibulopelvic ligament. The right uteroovarian pedicle as well as adhesions from the right sidewall. The right fallopian tube and ovary were then placed in the Endobag and removed. The pedicles were all hemostatic. Copious irrigation was performed and the posterior cul-de-sac ____ as many adhesions as possible as well as around the appendix. General Surgery did come in for a second opinion and decided that the appendix was not involved and did not need to be removed at this time. We continued with copious irrigation of the entire pelvis. The left fallopian tube and ovary were mildly edematous, but did not have any signs of abscess formation. A small amount of normal saline was left in the posterior cul-de-sac. The trocars were then removed under direct visualization. The abdomen was allowed to deflate as much as possible along with mechanical manipulation. The 11 mm port was reapproximated at the fascial layer using 2-0 Vicryl suture in a [id number] manner. The three skin incisions were reapproximated using 4-0 Vicryl suture in a subcuticular manner. 0.25% Marcaine with epinephrine was injected at each incision site. Uterine [place] manipulator and single tooth tenaculum were then removed. The patient tolerated the procedure well and was taken to recovery room in stable condition. Sponge and needle counts correct x 3. THEODORE BARBA MD DR: RAZ/matthew JOB#: [id number] / [id number]
[2016-08-05] VITALS (11 sets, daily range): BP systolic 87–115; BP diastolic 51–88
[2016-08-05] MEDS: PIPERACILLIN/TAZOBACTAM 3.375 GM in IV NORMAL SALINE 50ML 50 ML IV SCH ×6 (00:05→19:55)
[2016-08-05] MEDS: OXYCODONE/APAP 5/325 TABLET. PO PRN ×2 (00:05→21:46)
[2016-08-05 05:51] LABS: BASO % 0 % (0-3); EOS % 0 % (0-3); LYMPH # 1.1 x10^3/uL (1.0-4.8); LYMPH % 5 % (24-48); MEAN CORPUSCULAR HEMOGLOBIN 21 pg (25-35); MEAN CORPUSCULAR HGB CONC 30 g/dL (31-37); MEAN CORPUSCULAR VOLUME 68 fL (79-100); MONO % 3 % (0-9); NEUT % 92 % (31-73); PLATELET COUNT 335 x10^3/uL (140-400); RED BLOOD COUNT 3.26 x10^6/uL (3.50-5.40); RED CELL DISTRIBUTION WIDTH 18.6 % (11.5-14.5); WHITE BLOOD COUNT 20.3 x10^3/uL (4.0-11.0)
[2016-08-05 06:01] LABS: HEMOGLOBIN 6.7 g/dL (12.0-15.5)
[2016-08-05 06:07] LABS: CALCIUM 8.2 mg/dL (8.5-10.1); CREATININE 0.5 mg/dL (0.6-1.0); GFR 142.1; POTASSIUM 3.8 mmol/L (3.5-5.1)
--- NOTE | 2016-08-05 07:21 | CONS ---
DATE OF CONSULTATION: 08/04/2016 The patient is in room #14. REQUESTING PHYSICIAN: Dr. Tucker REASON FOR CONSULTATION: Positive blood cultures. HISTORY OF PRESENT ILLNESS: The patient is a pleasant, 35-year-old, female, who was having abdominal pain for over a week when she presented to [facility] on the 31 of July. It then start to get worse. She developed some nausea and vomiting. She was evaluated by Surgery. She has had a previous . CT scan was obtained and showed a right lower quadrant abscess with phlegmon, likely a ruptured appendix. Interventional Radiology was initially consulted for drainage; however, she underwent a pelvic ultrasound which showed enlarged right ovary containing a right cystic structure within the anterior aspect of the right hemipelvis. Gynecology was consulted and she did not undergo drainage. She had been placed on Zosyn. Blood cultures had turned positive for a Gram-negative maria del carmen. She has now been taken to the operating room by Dr. Barba and has undergone laparoscopic right salpingo-oophorectomy. This morning when I was consulted, the Gram-negative rods had now been identified. I added ciprofloxin to the Zosyn. Currently, the patient is lying in bed. She is a little bit comfortable. She has felt somewhat distended and she has not had a bowel movement for quite some time. She is postop somewhat sleepy. She denies any gross headaches, sore throat, cough, or chest pain. She has no problems passing urine. PAST MEDICAL HISTORY: Positive for anxiety, asthma, gastroesophageal reflux disease. PAST SURGICAL HISTORY: Positive for , D and C. REVIEW OF SYSTEMS: Otherwise negative except for mentioned above. SOCIAL HISTORY: No alcohol or tobacco. FAMILY HISTORY: Noncontributory. Her mom is currently with her. CURRENT MEDICATIONS: Again, Zosyn, Cipro, metronidazole, fentanyl, Neurontin, Robinul. Other meds are available and reviewed in the chart. PHYSICAL EXAMINATION: VITAL SIGNS: She had a temp early this morning of 100.7, last evening it was 101.8, currently at 98.1. Pulse was 90, respirations 16, blood pressure 97/56, on 2 liters nasal cannula. CONSTITUTIONAL: She is alert. She is cooperative. She is postoperative a little sleepy. She is on oxygen. HEENT: Pupils are equal and reactive. Normal conjunctivae. Oral cavity/oropharynx: She is missing some teeth, but the remaining teeth appear to be clean. NECK: Supple, no JVD. LUNGS: Decreased in the bases. HEART: S1, S2. ABDOMEN: Distended. ____. Wounds are dressed and clean. EXTREMITIES: Without clubbing, cyanosis, or gross edema. SKIN: Without generalized signs of rash. NEUROLOGIC: She answered questions appropriately, but did go back to sleep easily. Moved all extremities. PSYCHIATRIC: Her affect is flat postoperative. LABORATORY VALUES: White count today is 15.7, down from 17.7. Hemoglobin of 7.1, platelets of 311, with 89% neutrophils. Creatinine is 0.6, glucose of 115, and essentially normal liver LFTs. Urine was not consistent with urinary tract infection. Urine test was negative. Influenza screen was negative. Group A Strep negative. Blood cultures now turned positive for Fusobacterium necrophorum. IMPRESSION: 1. Fever: Questionable secondary from abscess versus developing ileus. 2. 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 3. Right tubo-ovarian abscess with pelvic adhesions, status post right salpingo-oophorectomy today. 4. Leukocytosis. RECOMMENDATIONS: We will continue the Zosyn and Flagyl for now. Cipro again was added earlier with Gram-negatives in her blood without identification, now has been identified as Fusobacterium. We will discontinue this. We will follow up on labs and cultures. This was discussed with the mother. Thank you for allowing me to see and participate in the patient's care. Should you have any further questions, please do not hesitate to contact me. CITLALI DIMAS MD DR: ROB/matthew JOB#: [id number] / [id number]
[2016-08-05] MEDS: METRONIDAZOLE 500mg PREMIX 100 ML IV SCH ×2 (08:55→21:47)
--- NOTE | 2016-08-05 09:01 | PDOC ---
Infectious Disease Note Subjective Subjective Way better today. Min pain. + Flatus ROS ROS GEN: Denies fevers, chills, sweats HEENT: Denies blurred vision, has mild sore throat from tube CV: Denies chest pain RESP: Denies shortness of air, cough GI: Denies n/v/d NEURO: Denies confusion, dizziness MSK: Denies weakness, joint pain/swelling Vital Sign Vital Signs Vital Signs Date Time Temp Pulse Resp B/P Pulse Ox O2 Delivery O2 Flow Rate FiO2 08/05/16 06:00 97.5 51 16 87/51 97.5 08/04/16 20:00 Room Air 08/04/16 18:35 98 08/04/16 14:45 2.0 Physical Exam PHYSICAL EXAM GENERAL: NAD, Alert -eatin. Looks well HEENT: PERRL, OC/OP -clean NECK: Supple, no JVD, no LN LUNGS: Clear HEART: S1S2, no gallop, no murmur ABD: Soft, Mild distension, no organomegaly, no rebound. 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 3, no focal neurologic deficit SKIN: No rash IV: ok Labs Lab Laboratory Tests Test 08/05/16 05:28 White Blood Count 20.3x10^3/uL (4.0-11.0) Red Blood Count 3.26x10^6/uL (3.50-5.40) Hemoglobin 6.7g/dL (12.0-15.5) Hematocrit 22.0% (36.0-47.0) Mean Corpuscular Volume 68fL (79-100) Mean Corpuscular Hemoglobin 21pg (25-35) Mean Corpuscular Hemoglobin Concent 30g/dL (31-37) Red Cell Distribution Width 18.6% (11.5-14.5) Platelet Count 335x10^3/uL (140-400) Neutrophils (%) (Auto) 92% (31-73) Lymphocytes (%) (Auto) 5% (24-48) Monocytes (%) (Auto) 3% (0-9) Eosinophils (%) (Auto) 0% (0-3) Basophils (%) (Auto) 0% (0-3) Neutrophils # (Auto) 18.6x10^3uL (1.8-7.7) Lymphocytes # (Auto) 1.1x10^3/uL (1.0-4.8) Monocytes # (Auto) 0.6x10^3/uL (0.0-1.1) Eosinophils # (Auto) 0.0x10^3/uL (0.0-0.7) Basophils # (Auto) 0.0x10^3/uL (0.0-0.2) Sodium Level 141mmol/L (136-145) Potassium Level 3.8mmol/L (3.5-5.1) Chloride Level 107mmol/L (98-107) Carbon Dioxide Level 27mmol/L (21-32) Anion Gap 7 (6-14) Blood Urea Nitrogen 12mg/dL (7-20) Creatinine 0.5mg/dL (0.6-1.0) Estimated GFR (Cockcroft-Gault) 142.1 Glucose Level 122mg/dL (70-99) Calcium Level 8.2mg/dL (8.5-10.1) Objective Assessment Fever - better 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 reactive -post op Anemia - worse Plan Plan of Care Clinically much better today Cont Zosyn/Flagyl for now F/u labs and cults PRBCs today CITLALI DIMAS MD Aug 05, 2016 09:01
--- NOTE | 2016-08-05 09:36 | PDOC ---
PROGRESS NOTES Subjective Subjective Pt awake and alert. States she is feeling much better. Pt states her appetite is returning and she has been passing gas this am. Objective Objective Pt awake and alert. NAD. Pt hypotensive this am - PRBC transfusion ordered. Remainder of VSS stable. Afebrile. Lungs CTA bilat. Resp even and unlabored. Vital Signs Date Time Temp Pulse Resp B/P Pulse Ox O2 Delivery O2 Flow Rate FiO2 08/05/16 06:00 97.5 51 16 87/51 97.5 08/04/16 20:00 Room Air 08/04/16 18:35 98 08/04/16 14:45 2.0 Intake and Output 08/05/16 07:00 Intake Total 1600 ml Output Total 175 ml Balance 1425 ml IV Total 1600 ml Output Urine Total 125 ml Estimated Blood Loss 50 ml Assessment Assessment Problems Medical Problems: (1) Ruptured appendicitis Status: Acute (2) Sepsis Status: Acute (3) Tubo-ovarian abscess Status: Acute Plan Plan of Care 1. Right Tubo-Ovarian abscess with pelvic adhesions, s/p surgery on 08/04 -1 week hx of RLQ pain with n/v and febrile status prior to admission -CT showing RLQ abscess with phlegmon, likely from ruptured appendix. -WBC 14.9 upon admission, 21.5 this am -ID consulting -Leo IV -Surgery consulting -Reciprocating Drill Operator consulting 2. Anemia, unknown origin -Hgb 8.2 upon admission, 6.7 this am. 1U PRBC ordered. Recheck in am. -Iron level low. Ferrous Sulfate added on 08/03 3. Hypokalemia, corrected. K 3.8 this am -Added 20mEq to NS on 08/01, stopped when IVF changed to D5. Restarted on 08/04. -Recheck BMP in am Pt clinically much improved. Optimistic for Dc this afternoon or tomorrow am, however will follow Surgeries lead. Comment Review of Relevant I have reviewed the following items conchita (where applicable) has been applied. Labs Laboratory Tests Test 08/04/16 03:55 08/05/16 05:28 White Blood Count 15.7x10^3/uL (4.0-11.0) 20.3x10^3/uL (4.0-11.0) Red Blood Count 3.38x10^6/uL (3.50-5.40) 3.26x10^6/uL (3.50-5.40) Hemoglobin 7.1g/dL (12.0-15.5) 6.7g/dL (12.0-15.5) Hematocrit 23.0% (36.0-47.0) 22.0% (36.0-47.0) Mean Corpuscular Volume 68fL (79-100) 68fL (79-100) Mean Corpuscular Hemoglobin 21pg (25-35) 21pg (25-35) Mean Corpuscular Hemoglobin Concent 31g/dL (31-37) 30g/dL (31-37) Red Cell Distribution Width 18.6% (11.5-14.5) 18.6% (11.5-14.5) Platelet Count 311x10^3/uL (140-400) 335x10^3/uL (140-400) Neutrophils (%) (Auto) 89% (31-73) 92% (31-73) Lymphocytes (%) (Auto) 7% (24-48) 5% (24-48) Monocytes (%) (Auto) 3% (0-9) 3% (0-9) Eosinophils (%) (Auto) 0% (0-3) 0% (0-3) Basophils (%) (Auto) 0% (0-3) 0% (0-3) Neutrophils # (Auto) 14.0x10^3uL (1.8-7.7) 18.6x10^3uL (1.8-7.7) Lymphocytes # (Auto) 1.1x10^3/uL (1.0-4.8) 1.1x10^3/uL (1.0-4.8) Monocytes # (Auto) 0.5x10^3/uL (0.0-1.1) 0.6x10^3/uL (0.0-1.1) Eosinophils # (Auto) 0.1x10^3/uL (0.0-0.7) 0.0x10^3/uL (0.0-0.7) Basophils # (Auto) 0.0x10^3/uL (0.0-0.2) 0.0x10^3/uL (0.0-0.2) Segmented Neutrophils % 86% (35-66) Lymphocytes % 12% (24-48) Monocytes % 2% (0-10) Platelet Estimate Adequate (ADEQUATE) Hypochromasia Mod Anisocytosis Slight Microcytosis Mod Sodium Level 137mmol/L (136-145) 141mmol/L (136-145) Potassium Level 3.1mmol/L (3.5-5.1) 3.8mmol/L (3.5-5.1) Chloride Level 106mmol/L (98-107) 107mmol/L (98-107) Carbon Dioxide Level 27mmol/L (21-32) 27mmol/L (21-32) Anion Gap 4 (6-14) 7 (6-14) Blood Urea Nitrogen 9mg/dL (7-20) 12mg/dL (7-20) Creatinine 0.6mg/dL (0.6-1.0) 0.5mg/dL (0.6-1.0) Estimated GFR (Cockcroft-Gault) 115.1 142.1 Glucose Level 99mg/dL (70-99) 122mg/dL (70-99) Calcium Level 7.9mg/dL (8.5-10.1) 8.2mg/dL (8.5-10.1) Laboratory Tests Test 08/05/16 05:28 White Blood Count 20.3x10^3/uL (4.0-11.0) Red Blood Count 3.26x10^6/uL (3.50-5.40) Hemoglobin 6.7g/dL (12.0-15.5) Hematocrit 22.0% (36.0-47.0) Mean Corpuscular Volume 68fL (79-100) Mean Corpuscular Hemoglobin 21pg (25-35) Mean Corpuscular Hemoglobin Concent 30g/dL (31-37) Red Cell Distribution Width 18.6% (11.5-14.5) Platelet Count 335x10^3/uL (140-400) Neutrophils (%) (Auto) 92% (31-73) Lymphocytes (%) (Auto) 5% (24-48) Monocytes (%) (Auto) 3% (0-9) Eosinophils (%) (Auto) 0% (0-3) Basophils (%) (Auto) 0% (0-3) Neutrophils # (Auto) 18.6x10^3uL (1.8-7.7) Lymphocytes # (Auto) 1.1x10^3/uL (1.0-4.8) Monocytes # (Auto) 0.6x10^3/uL (0.0-1.1) Eosinophils # (Auto) 0.0x10^3/uL (0.0-0.7) Basophils # (Auto) 0.0x10^3/uL (0.0-0.2) Sodium Level 141mmol/L (136-145) Potassium Level 3.8mmol/L (3.5-5.1) Chloride Level 107mmol/L (98-107) Carbon Dioxide Level 27mmol/L (21-32) Anion Gap 7 (6-14) Blood Urea Nitrogen 12mg/dL (7-20) Creatinine 0.5mg/dL (0.6-1.0) Estimated GFR (Cockcroft-Gault) 142.1 Glucose Level 122mg/dL (70-99) Calcium Level 8.2mg/dL (8.5-10.1) Microbiology 08/01/16 Blood Culture - Preliminary, Resulted NO GROWTH AFTER 4 DAYS Medications Current Medications Sodium Chloride (Iv Sodium Chloride 0.9% 1000ml Bag) 1,000 ml @ 435 mls/hr Q2H18M IV Last administered on 07/31/16 20:24; Start 07/31/16 at 18:18; Stop 07/31/16 at 22:18; Status DC Iohexol (Omnipaque 300 Mg/ml) 75 ml 1X ONCE IV Last administered on 07/31/16 18:45; Start 07/31/16 at 18:45; Stop 07/31/16 at 18:47; Status DC Info (Do NOT chart on this entry -- for MONITORING) 1 each PRN DAILY PRN MC SEE COMMENTS; Start 07/31/16 at 19:00; Stop 08/02/16 at 18:59; Status DC Ondansetron HCl (Zofran) 4 mg 1X ONCE IV Last administered on 07/31/16 19:29; Start 07/31/16 at 19:15; Stop 07/31/16 at 19:16; Status DC Fentanyl Citrate (Fentanyl 2ml Vial) 50 mcg 1X ONCE IV Last administered on 19:30; Start 07/31/16 at 19:15; Stop 07/31/16 at 19:16; Status DC Piperacillin Sod/ Tazobactam Sod 1 each 1 each PRN DAILY PRN MC SEE COMMENTS; Start 07/31/16 at 20:15; Stop 08/01/16 at 15:01; Status DC Piperacillin Sod/ Tazobactam Sod/ Sodium Chloride (Zosyn/Iv Sodium Chloride 0.9 % 50ml) 50 ml @ 100 mls/hr 1X ONCE IV Last administered on 07/31/16 20:25; Start 07/31/16 at 20:15; Stop 07/31/16 at 20:44; Status DC Ondansetron HCl (Zofran) 4 mg PRN Q8HRS PRN IV NAUSEA/VOMITING Last administered on 08/01/16 19:28; Start 07/31/16 at 20:45; Stop 08/01/16 at 20:44; Status DC Fentanyl Citrate 50 mcg 50 mcg PRN Q2HR PRN IV SEVERE PAIN Last administered on 08/01/16 17:55; Start 07/31/16 at 20:45; Stop 08/01/16 at 18:15; Status DC Sodium Chloride 1,000 ml @ 150 mls/hr Q6H40M IV Last administered on 08/01/16 05:00; Start 07/31/16 at 21:00; Stop 08/01/16 at 11:09; Status DC Piperacillin Sod/ Tazobactam Sod 3.375 gm/Sodium Chloride 50 ml @ 100 mls/hr Q6HRS IV Last administered on 08/05/16 06:00; Start 08/01/16 at 00:00 Potassium Chloride/Sodium Chloride (KCl 20 Meq-NS 1,000 ml Iv Soln) 1,000 ml @ 150 mls/hr Q6H40M IV Last administered on 08/02/16 07:40; Start 08/01/16 at 11: 15; Stop 08/02/16 at 12:45; Status DC Fentanyl Citrate (Fentanyl 2ml Vial) 50 mcg PRN Q2HR PRN IV PAIN Last administered on 08/02/16 09:07; Start 08/01/16 at 18:15 Ketorolac Tromethamine (Toradol) 30 mg PRN Q6HRS PRN IV PAIN Last administered on 08/04/16 16:30; Start 08/01/16 at 19:00; Stop 08/05/16 at 04:14; Status DC Hydromorphone HCl 2 mg 2 mg PRN Q2HR PRN IV PAIN Last administered on 08/03/16 23:23; Start 08/01/16 at 19:00 Dextrose/Lactated Ringer's (Iv D5%-Lr) 1,000 ml @ 125 mls/hr Q8H IV Last administered on 08/03/16 17:25; Start 08/02/16 at 09:00; Stop 08/04/16 at 10:47; Status DC Acetaminophen (Tylenol) 650 mg PRN Q6HRS PRN PO MILD PAIN / TEMP Last administered on 08/03/16 23:44; Start 08/03/16 at 02:45 Ferrous Sulfate 325 mg 325 mg [id number] PO Last administered on 08/03/16 21:49 ; Start 08/03/16 at 20:00; Stop 08/04/16 at 18:32; Status DC Propofol (Diprivan) 20 ml @ As Directed STK-MED ONCE IV ; Start 08/04/16 at 07:07 ; Stop 08/04/16 at 07:08; Status DC Lidocaine HCl 100 mg STK-MED ONCE .ROUTE ; Start 08/04/16 at 07:07; Stop 08/04/16 at 07:08; Status DC Famotidine (Pepcid) 20 mg STK-MED ONCE .ROUTE ; Start 08/04/16 at 07:07; Stop 08/04/16 at 07:08; Status DC Ondansetron HCl (Zofran) 4 mg STK-MED ONCE .ROUTE ; Start 08/04/16 at 07:07; Stop 08/04/16 at 07:08; Status DC Ketorolac Tromethamine (Toradol For Or Only) 30 mg STK-MED ONCE INJ ; Start 08/04 at 07:07; Stop 08/04/16 at 07:08; Status DC Midazolam HCl (Versed) 2 mg STK-MED ONCE .ROUTE ; Start 08/04/16 at 07:08; Stop 08/04/16 at 07:09; Status DC Fentanyl Citrate (Fentanyl 2ml Vial) 100 mcg STK-MED ONCE .ROUTE ; Start at 07:08; Stop 08/04/16 at 07:09; Status DC Rocuronium Bingen (Zemuron) 50 mg STK-MED ONCE .ROUTE ; Start 08/04/16 at 07:08 ; Stop 08/04/16 at 07:09; Status DC Bupivacaine HCl/ Epinephrine Bitart (Marcaine-Epi 0.5%-1:[id number]) 50 ml STK-MED ONCE .ROUTE Last administered on 08/04/16 08:46; Start 08/04/16 at 07:21; Stop 08/04/16 at 07:22; Status DC Cellulose 1 each 1 each STK-MED ONCE .ROUTE ; Start 08/04/16 at 07:21; Stop at 07:22; Status DC Acetaminophen (Ofirmev) 100 ml @ As Directed STK-MED ONCE IV ; Start 08/04/16 at 07:23; Stop 08/04/16 at 07:24; Status DC Ondansetron HCl (Zofran) 4 mg PRN Q6HRS PRN IV Nausea; Start 08/04/16 at 07:30; Stop 08/04/16 at 18:00; Status DC Fentanyl Citrate (Fentanyl 2ml Vial) 25 mcg PRN Q5MIN PRN IV MILD PAIN; Start 08/04/16 at 07:30; Stop 08/04/16 at 18:00; Status DC Fentanyl Citrate (Fentanyl 2ml Vial) 50 mcg PRN Q5MIN PRN IV MODERATE PAIN Last administered on 08/04/16 09:58; Start 08/04/16 at 07:30; Stop 08/04/16 at 18: 00; Status DC Morphine Sulfate 1 mg 1 mg PRN Q10MIN PRN IV SEVERE PAIN; Start 08/04/16 at 07: 30; Stop 08/04/16 at 18:00; Status DC Lactated Ringer's (Iv Lactated Ringers) 1,000 ml @ 30 mls/hr Q24H IV Last administered on 08/04/16 07:34; Start 08/04/16 at 07:27; Stop 08/04/16 at 19:26; Status DC Lidocaine HCl 2 ml 1X PRN PRN ID IV START; Start 08/04/16 at 07:30; Stop at 18:00; Status DC Hydromorphone HCl (Dilaudid) 0.5 mg PRN Q10MIN PRN IV SEV PAIN,Second choice; Start 08/04/16 at 07:30; Stop 08/04/16 at 18:00; Status DC Prochlorperazine Edisylate (Compazine) 5 mg PACU PRN PRN IV NAUSEA Last administered on 08/04/16 09:57; Start 08/04/16 at 07:30; Stop 08/04/16 at 18:00; Status DC Fentanyl Citrate (Fentanyl 2ml Vial) 100 mcg STK-MED ONCE .ROUTE ; Start at 08:12; Stop 08/04/16 at 08:13; Status DC Morphine Sulfate 10 mg 10 mg STK-MED ONCE .ROUTE ; Start 08/04/16 at 08:35; Stop 08/04/16 at 08:36; Status DC Ciprofloxacin Lactate (Cipro 400mg Premix) 200 ml @ 200 mls/hr Q12HR IV Last administered on 08/04/16 09:57; Start 08/04/16 at 09:00; Stop 08/04/16 at 12:43; Status DC Glycopyrrolate (Robinul) 1 mg STK-MED ONCE .ROUTE ; Start 08/04/16 at 09:21; Stop 08/04/16 at 09:22; Status DC Neostigmine Methylsulfate 5 mg STK-MED ONCE .ROUTE ; Start 08/04/16 at 09:21; Stop 08/04/16 at 09:22; Status DC Sevoflurane (Ultane) 60 ml STK-MED ONCE IH ; Start 08/04/16 at 09:32; Stop at 09:33; Status DC Calcium Carbonate/ Glycine (Tums) 500 mg PRN Q3HRS PRN PO HEARTBURN / GAS; Start 08/04/16 at 09:45 Simethicone (Gas-X) 80 mg PRN AFTMEALHC PRN PO GAS / BLOATING; Start 08/04/16 at 09:45 Zolpidem Tartrate (Ambien) 5 mg PRN QHS PRN PO INSOMNIA, MAY REPEAT IN 1HR; Start 08/04/16 at 09:45 Diphenhydramine HCl (Benadryl) 25 mg PRN Q6HRS PRN PO ITCHING; Start 08/04/16 at 09:45 Diphenhydramine HCl (Benadryl) 25 mg PRN Q6HRS PRN IV ITCHING; Start 08/04/16 at 09:45 Sodium Chloride (Normal Saline Flush) 3 ml QSHIFT PRN IV AFTER MEDS AND BLOOD DRAWS; Start 08/04/16 at 09:45 Dextrose 12.5 gm PRN Q15MIN PRN IV SEE COMMENTS; Start 08/04/16 at 09:45 Oxycodone/ Acetaminophen (Percocet 5/325) 2 tab PRN Q4HRS PRN PO MODERATE PAIN , SEVERE PAIN Last administered on 08/05/16 00:05; Start 08/04/16 at 09:45 Ketorolac Tromethamine (Toradol) 30 mg PRN Q6HRS PRN IV PAIN; Start 08/04/16 at 09:45; Stop 08/09/16 at 09:44 Gabapentin (Neurontin) 600 mg Q8HRS PO ; Start 08/04/16 at 11:00 Ondansetron HCl (Zofran) 4 mg PRN Q6HRS PRN IV NAUESA, 1ST CHOICE; Start at 09:45 Prochlorperazine Edisylate 5 mg 5 mg PRN Q6HRS PRN IV N/V, 2nd Choice, MR X1; Start 08/04/16 at 09:45 Piperacillin Sod/ Tazobactam Sod 3.375 gm/Sodium Chloride 50 ml @ 100 mls/hr Q6HRS IV Last administered on 08/05/16 00:05; Start 08/04/16 at 11:00; Stop 08/05 at 04:13; Status DC Metronidazole 100 ml @ 100 mls/hr Q12HR IV Last administered on 08/05/16 08:55 ; Start 08/04/16 at 11:00 Potassium Chloride/Dextrose/ Lactated Ringer's (Iv D5%-Lr) 1,010 ml @ 125 mls/ hr Q8H5M IV Last administered on 08/04/16 11:29; Start 08/04/16 at 11:00 Ferrous Sulfate (Feosol) 325 mg BID76 PO ; Start 08/06/16 at 18:00; Stop 08/06/16 at 18:00; Status DC Ferrous Sulfate (Feosol) 325 mg BIDAC PO ; Start 08/05/16 at 16:30 Active Scripts Active Milfay 5-325 Tablet (Acetaminophen/Hydrocodone Bitart) 1 Each Tablet 1-2 Tab PO Q4-6HRS Augmentin 875-125 Tablet (Amoxicillin/Potassium Clav) 1 Each Tablet 1 Tab PO BID Reported Omeprazole 20 Mg Tablet.dr 20 Mg PO Citalopram Hbr (Citalopram Hydrobromide) 20 Mg Tablet 20 Mg PO Vitals/I & O Vital Sign - Last 24 Hours 08/04/16 08/04/16 08/04/16 08/04/16 09:43 09:43 09:58 09:58 Temp 98.8 98.8 98.8 98.8 Pulse 96 87 Resp 15 B/P 129/75 115/59 Pulse Ox 100 100 100 O2 Delivery Room Air Simple Mask Simple Mask Simple Mask O2 Flow Rate 10 10.0 10.0 08/04/16 08/04/16 08/04/16 08/04/16 10:13 10:28 10:43 10:50 Temp 98.8 98.8 98.8 98.8 98.8 98.8 Pulse 87 96 93 Resp 15 B/P 109/62 116/57 108/53 Pulse Ox 94 94 95 O2 Delivery Room Air Nasal Cannula Nasal Cannula Room Air O2 Flow Rate 2 2 08/04/16 08/04/16 08/04/16 08/04/16 11:00 11:15 11:30 11:45 Temp 98.1 98.1 Pulse 92 89 90 89 Resp 16 16 B/P 104/57 108/55 97/56 104/74 Pulse Ox 96 99 96 O2 Delivery Nasal Cannula Nasal Cannula Nasal Cannula O2 Flow Rate 2.0 2.0 2.0 08/04/16 08/04/16 08/04/16 08/04/16 12:00 12:30 13:00 14:00 Pulse 86 89 74 96 B/P 98/59 102/64 93/65 103/56 Pulse Ox 97 O2 Delivery Nasal Cannula O2 Flow Rate 2.0 08/04/16 08/04/16 08/04/16 2/6/17 14:45 15:30 15:30 16:10 Temp 98.4 98.4 Pulse 82 66 69 Resp 18 B/P 99/61 99/59 98/56 Pulse Ox 96 99 O2 Delivery Nasal Cannula Room Air Room Air O2 Flow Rate 2.0 08/04/16 08/04/16 08/04/16 08/05/16 18:35 20:00 23:00 06:00 Temp 97.7 97.9 97.5 97.7 97.9 97.5 Pulse 68 66 51 Resp 18 18 16 B/P 91/56 94/61 87/51 Pulse Ox 98 O2 Delivery Room Air Room Air Intake and Output 08/04/16 08/04/16 08/05/16 15:00 23:00 07:00 Intake Total 1600 ml Output Total 175 ml Balance 1425 ml KEVIN GARCIA MD Aug 05, 2016 09:36
--- NOTE | 2016-08-05 13:47 | PDOC ---
SURGICAL PROGRESS NOTE Subjective Pt. feeling better. Pain controlled. She is tolerating regular diet and ambulating in room. No CP, SOB, abd pain, fever or chills. Vital Signs Vital Signs Date Time Temp Pulse Resp B/P Pulse Ox O2 Delivery O2 Flow Rate FiO2 08/05/16 13:31 97.9 61 18 100/88 97.9 08/05/16 08:00 Room Air 08/04/16 18:35 98 08/04/16 14:45 2.0 I&O Intake and Output 08/05/16 07:00 Intake Total 1600 ml Output Total 175 ml Balance 1425 ml IV Total 1600 ml Output Urine Total 125 ml Estimated Blood Loss 50 ml PATIENT HAS A STOUT: No General: Alert, Oriented X3, Cooperative HEENT: Atraumatic Lungs: Clear to auscultation Heart: Regular rate Abdomen: Normal bowel sounds, Soft, No tenderness, No masses Extremities: No edema Neuro: Normal gait Psych/Mental Status: Mental status NL Labs Laboratory Tests Test 08/04/16 03:55 08/05/16 05:28 White Blood Count 15.7x10^3/uL (4.0-11.0) 20.3x10^3/uL (4.0-11.0) Red Blood Count 3.38x10^6/uL (3.50-5.40) 3.26x10^6/uL (3.50-5.40) Hemoglobin 7.1g/dL (12.0-15.5) 6.7g/dL (12.0-15.5) Hematocrit 23.0% (36.0-47.0) 22.0% (36.0-47.0) Mean Corpuscular Volume 68fL (79-100) 68fL (79-100) Mean Corpuscular Hemoglobin 21pg (25-35) 21pg (25-35) Mean Corpuscular Hemoglobin Concent 31g/dL (31-37) 30g/dL (31-37) Red Cell Distribution Width 18.6% (11.5-14.5) 18.6% (11.5-14.5) Platelet Count 311x10^3/uL (140-400) 335x10^3/uL (140-400) Neutrophils (%) (Auto) 89% (31-73) 92% (31-73) Lymphocytes (%) (Auto) 7% (24-48) 5% (24-48) Monocytes (%) (Auto) 3% (0-9) 3% (0-9) Eosinophils (%) (Auto) 0% (0-3) 0% (0-3) Basophils (%) (Auto) 0% (0-3) 0% (0-3) Neutrophils # (Auto) 14.0x10^3uL (1.8-7.7) 18.6x10^3uL (1.8-7.7) Lymphocytes # (Auto) 1.1x10^3/uL (1.0-4.8) 1.1x10^3/uL (1.0-4.8) Monocytes # (Auto) 0.5x10^3/uL (0.0-1.1) 0.6x10^3/uL (0.0-1.1) Eosinophils # (Auto) 0.1x10^3/uL (0.0-0.7) 0.0x10^3/uL (0.0-0.7) Basophils # (Auto) 0.0x10^3/uL (0.0-0.2) 0.0x10^3/uL (0.0-0.2) Segmented Neutrophils % 86% (35-66) Lymphocytes % 12% (24-48) Monocytes % 2% (0-10) Platelet Estimate Adequate (ADEQUATE) Hypochromasia Mod Anisocytosis Slight Microcytosis Mod Sodium Level 137mmol/L (136-145) 141mmol/L (136-145) Potassium Level 3.1mmol/L (3.5-5.1) 3.8mmol/L (3.5-5.1) Chloride Level 106mmol/L (98-107) 107mmol/L (98-107) Carbon Dioxide Level 27mmol/L (21-32) 27mmol/L (21-32) Anion Gap 4 (6-14) 7 (6-14) Blood Urea Nitrogen 9mg/dL (7-20) 12mg/dL (7-20) Creatinine 0.6mg/dL (0.6-1.0) 0.5mg/dL (0.6-1.0) Estimated GFR (Cockcroft-Gault) 115.1 142.1 Glucose Level 99mg/dL (70-99) 122mg/dL (70-99) Calcium Level 7.9mg/dL (8.5-10.1) 8.2mg/dL (8.5-10.1) Laboratory Tests Test 08/05/16 05:28 White Blood Count 20.3x10^3/uL (4.0-11.0) Red Blood Count 3.26x10^6/uL (3.50-5.40) Hemoglobin 6.7g/dL (12.0-15.5) Hematocrit 22.0% (36.0-47.0) Mean Corpuscular Volume 68fL (79-100) Mean Corpuscular Hemoglobin 21pg (25-35) Mean Corpuscular Hemoglobin Concent 30g/dL (31-37) Red Cell Distribution Width 18.6% (11.5-14.5) Platelet Count 335x10^3/uL (140-400) Neutrophils (%) (Auto) 92% (31-73) Lymphocytes (%) (Auto) 5% (24-48) Monocytes (%) (Auto) 3% (0-9) Eosinophils (%) (Auto) 0% (0-3) Basophils (%) (Auto) 0% (0-3) Neutrophils # (Auto) 18.6x10^3uL (1.8-7.7) Lymphocytes # (Auto) 1.1x10^3/uL (1.0-4.8) Monocytes # (Auto) 0.6x10^3/uL (0.0-1.1) Eosinophils # (Auto) 0.0x10^3/uL (0.0-0.7) Basophils # (Auto) 0.0x10^3/uL (0.0-0.2) Sodium Level 141mmol/L (136-145) Potassium Level 3.8mmol/L (3.5-5.1) Chloride Level 107mmol/L (98-107) Carbon Dioxide Level 27mmol/L (21-32) Anion Gap 7 (6-14) Blood Urea Nitrogen 12mg/dL (7-20) Creatinine 0.5mg/dL (0.6-1.0) Estimated GFR (Cockcroft-Gault) 142.1 Glucose Level 122mg/dL (70-99) Calcium Level 8.2mg/dL (8.5-10.1) Problem List Problems Medical Problems: (1) Ruptured appendicitis Status: Acute (2) Sepsis Status: Acute (3) Tubo-ovarian abscess Status: Acute Assessment/Plan A: POD#1 s/p LPSC RSO Chronic blood loss anemia P: Pt. will complete transfusion 2 Units PRBC's for anemia. Continue with IV abx until afebrile 36-48 hours. Encourage ambulation. Problems: JAREN SENIOR Jr, MD Aug 05, 2016 13:47
--- NOTE | 2016-08-05 15:08 | PATHOLOGY ---
PATHOLOGY REPORT * * * * * * * * FINAL DIAGNOSIS: Ovary, right oophorectomy: - Ovarian abscess. - Capsular adhesions. - Several small cystic follicles of ovary. COMMENT: There is no evidence of malignancy. (JPM:all; d/t: 08/05/2016) REPORT ELECTRONICALLY SIGNED BY: Gerardo Barton M.D. DATE/TIME: 08/05/2016 15:07 * * * * * * * * GROSS PATHOLOGY: The specimen is received in formalin labeled "Aaliyah Cummings, right fallopian tube and right ovary". Received is a 43 g segment of pink-moreau to pink-bull soft tissue with overlying exudate measuring 7.5 x 4.3 x 3.6 cm in greatest dimensions. The fallopian tube is not grossly distinct upon initial examination. Sectioning reveals multiple unilocular cystic structures ranging in size from 0.5 to 2.3 cm in maximum dimensions. The cyst mao are white-bull and smooth in appearance with no grossly distinct papillary excrescences. A fallopian tube is not identified upon sectioning. The specimen is submitted representatively in cassettes A1 through A4. (CAA; 08/04/2016) INITIAL CPT CODE(S): A; 07519 Professional services performed by [facility] at [address] [address] Technical services performed by [facility] at [address] [place] [address], [facility] [address] [address]. SPECIMEN(S) RECEIVED: A.Right fallopian tube and right ovary CLINICAL HISTORY: Right ovarian cyst PATIENT: AALIYAH CUMMINGS /AGE: 6 1980 (Age: 35) PATIENT #: [id number] ALT CASE #: SPECIMEN COLLECTION DATE: 08/04/2016 SPECIMEN RECEIVED DATE: 08/04/2016 [facility] - [id number] [place] [address] - PHONE: [phone] * * * END OF REPORT * * *
[2016-08-05] MEDS: FERROUS SULFATE 325 MG TABLET PO SCH (16:30)
[2016-08-05] MEDS ORDERED: BISACODYL 10 MG SUPP.RECT PR PRN (19:30)
[2016-08-05] MEDS: GABAPENTIN 300 MG CAPSULE. PO SCH (21:47)
[2016-08-06] MEDS: PIPERACILLIN/TAZOBACTAM 3.375 GM in IV NORMAL SALINE 50ML 50 ML IV SCH ×2 (00:11→06:13)
[2016-08-06] MEDS: ACETAMINOPHEN 325 MG TABLET. PO PRN (06:13)
[2016-08-06 06:15] LABS: BASO % 0 % (0-3); EOS % 0 % (0-3); HEMATOCRIT 27.6 % (36.0-47.0); HEMOGLOBIN 8.6 g/dL (12.0-15.5); LYMPH # 1.6 x10^3/uL (1.0-4.8); LYMPH % 13 % (24-48); MEAN CORPUSCULAR HEMOGLOBIN 23 pg (25-35); MEAN CORPUSCULAR HGB CONC 31 g/dL (31-37); MEAN CORPUSCULAR VOLUME 74 fL (79-100); MONO % 6 % (0-9); NEUT % 81 % (31-73); PLATELET COUNT 382 x10^3/uL (140-400); RED BLOOD COUNT 3.75 x10^6/uL (3.50-5.40); RED CELL DISTRIBUTION WIDTH 23.4 % (11.5-14.5); WHITE BLOOD COUNT 12.3 x10^3/uL (4.0-11.0)
[2016-08-06 06:25] VITALS: BP 106/71
[2016-08-06 06:32] LABS: CALCIUM 6.8 mg/dL (8.5-10.1); CREATININE 0.6 mg/dL (0.6-1.0); GFR 115.1; POTASSIUM 3.8 mmol/L (3.5-5.1)
--- NOTE | 2016-08-06 08:39 | PDOC ---
Infectious Disease Note Subjective Subjective Way better today. Min pain. + Flatus. + BM with suppository Eating well Still mild sore throat at times ROS ROS GEN: Denies fevers, chills, sweats HEENT: Denies blurred vision, sore throat CV: Denies chest pain RESP: Denies shortness of air, cough GI: Denies n/v/d NEURO: Denies confusion, dizziness MSK: Denies weakness, joint pain/swelling Vital Sign Vital Signs Vital Signs Date Time Temp Pulse Resp B/P Pulse Ox O2 Delivery O2 Flow Rate FiO2 08/06/16 06:25 98.1 61 16 106/71 98.1 08/05/16 20:19 Room Air Physical Exam PHYSICAL EXAM GENERAL: NAD, Alert, coop HEENT: PERRL, OC/OP -clear - no thrush NECK: Supple, no JVD, no LN LUNGS: Clear HEART: S1S2, no gallop, no murmur ABD: Softer, NT, no organomegaly, no rebound. Incisions clean EXT: No edema, no cyanosis [employer]ET[employer] INTERN: Alert, oriented x 3, no focal neurologic deficit SKIN: No rash IV: ok Labs Lab Laboratory Tests Test 08/06/16 05:28 White Blood Count 12.3x10^3/uL (4.0-11.0) Red Blood Count 3.75x10^6/uL (3.50-5.40) Hemoglobin 8.6g/dL (12.0-15.5) Hematocrit 27.6% (36.0-47.0) Mean Corpuscular Volume 74fL (79-100) Mean Corpuscular Hemoglobin 23pg (25-35) Mean Corpuscular Hemoglobin Concent 31g/dL (31-37) Red Cell Distribution Width 23.4% (11.5-14.5) Platelet Count 382x10^3/uL (140-400) Neutrophils (%) (Auto) 81% (31-73) Lymphocytes (%) (Auto) 13% (24-48) Monocytes (%) (Auto) 6% (0-9) Eosinophils (%) (Auto) 0% (0-3) Basophils (%) (Auto) 0% (0-3) Neutrophils # (Auto) 10.0x10^3uL (1.8-7.7) Lymphocytes # (Auto) 1.6x10^3/uL (1.0-4.8) Monocytes # (Auto) 0.7x10^3/uL (0.0-1.1) Eosinophils # (Auto) 0.0x10^3/uL (0.0-0.7) Basophils # (Auto) 0.0x10^3/uL (0.0-0.2) Sodium Level 144mmol/L (136-145) Potassium Level 3.8mmol/L (3.5-5.1) Chloride Level 110mmol/L (98-107) Carbon Dioxide Level 26mmol/L (21-32) Anion Gap 8 (6-14) Blood Urea Nitrogen 18mg/dL (7-20) Creatinine 0.6mg/dL (0.6-1.0) Estimated GFR (Cockcroft-Gault) 115.1 Glucose Level 87mg/dL (70-99) Calcium Level 6.8mg/dL (8.5-10.1) Objective Assessment Fever - better 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
[2016-08-06] MEDS: METRONIDAZOLE 500mg PREMIX 100 ML IV SCH (09:17)
[2016-08-06] MEDS: FERROUS SULFATE 325 MG TABLET PO SCH (09:24)
[2016-08-06] MEDS: GABAPENTIN 300 MG CAPSULE. PO SCH (09:25)
[2016-08-06 09:42] VITALS: BP 114/75
--- NOTE | 2016-08-06 10:00 | PDOC ---
SUBJECTIVE Subjective feels better OBJECTIVE Vital Signs Vital Signs Date Time Temp Pulse Resp B/P Pulse Ox O2 Delivery O2 Flow Rate FiO2 08/06/16 09:42 97.9 66 16 114/75 99 Room Air 97.9 08/06/16 06:25 98.1 61 16 106/71 98.1 08/05/16 23:00 98.2 59 18 115/81 98.2 08/05/16 20:19 Room Air 08/05/16 15:00 98.7 68 18 99/67 98.7 08/05/16 15:00 97.3 66 18 98/68 97.3 08/05/16 14:05 98.0 61 18 98/54 98.0 08/05/16 13:45 97.6 56 18 91/54 97.6 08/05/16 13:31 97.9 61 18 100/88 97.9 08/05/16 12:30 97.8 66 20 96/64 97.8 08/05/16 11:45 97.7 61 18 98/66 97.7 08/05/16 11:30 97.9 61 18 98/66 97.9 08/05/16 11:05 97.9 61 18 100/68 97.9 08/05/16 10:50 97.5 51 18 87/51 97.5 I & O Intake and Output 08/06/16 07:00 Intake Total 350 ml Balance 350 ml Blood Product IV Normal Saline Flush 350 ml PHYSICAL EXAM Physical Exam lungs clear abd soft, minimal scars clean, minimal tenderness, + BS heart RRR abd soft ASSESSMENT/PLAN Assessment/Plan improved , home today or tomorrow on p.o ABx as per ID increase activity today Problems: COMMENT Lab Laboratory Tests Test 08/06/16 05:28 White Blood Count 12.3x10^3/uL (4.0-11.0) Red Blood Count 3.75x10^6/uL (3.50-5.40) Hemoglobin 8.6g/dL (12.0-15.5) Hematocrit 27.6% (36.0-47.0) Mean Corpuscular Volume 74fL (79-100) Mean Corpuscular Hemoglobin 23pg (25-35) Mean Corpuscular Hemoglobin Concent 31g/dL (31-37) Red Cell Distribution Width 23.4% (11.5-14.5) Platelet Count 382x10^3/uL (140-400) Neutrophils (%) (Auto) 81% (31-73) Lymphocytes (%) (Auto) 13% (24-48) Monocytes (%) (Auto) 6% (0-9) Eosinophils (%) (Auto) 0% (0-3) Basophils (%) (Auto) 0% (0-3) Neutrophils # (Auto) 10.0x10^3uL (1.8-7.7) Lymphocytes # (Auto) 1.6x10^3/uL (1.0-4.8) Monocytes # (Auto) 0.7x10^3/uL (0.0-1.1) Eosinophils # (Auto) 0.0x10^3/uL (0.0-0.7) Basophils # (Auto) 0.0x10^3/uL (0.0-0.2) Sodium Level 144mmol/L (136-145) Potassium Level 3.8mmol/L (3.5-5.1) Chloride Level 110mmol/L (98-107) Carbon Dioxide Level 26mmol/L (21-32) Anion Gap 8 (6-14) Blood Urea Nitrogen 18mg/dL (7-20) Creatinine 0.6mg/dL (0.6-1.0) Estimated GFR (Cockcroft-Gault) 115.1 Glucose Level 87mg/dL (70-99) Calcium Level 6.8mg/dL (8.5-10.1) DYLON MARSHALL MD Aug 06, 2016 10:00
[2016-08-06 12:17] VITALS: BP 116/82
--- NOTE | 2016-08-06 12:48 | PDOC ---
SURGICAL PROGRESS NOTE Subjective Pt. feeling well. No complaints. Pain controlled. Ambulating, voiding and tolerating regular diet. Vital Signs Vital Signs Date Time Temp Pulse Resp B/P Pulse Ox O2 Delivery O2 Flow Rate FiO2 08/06/16 12: 97.9 65 16 116/82 99 Room Air 97.9 I&O Intake and Output 08/06/16 07:00 Intake Total 350 ml Balance 350 ml Blood Product IV Normal Saline Flush 350 ml PATIENT HAS A STOUT: No General: Alert, Oriented X3, Cooperative HEENT: Atraumatic Lungs: Clear to auscultation Heart: Regular rate Abdomen: Normal bowel sounds, Soft, No tenderness, No masses Neuro: Normal gait Psych/Mental Status: Mental status NL Labs Laboratory Tests Test 08/05/16 05:28 08/06/16 05:28 White Blood Count 20.3x10^3/uL (4.0-11.0) 12.3x10^3/uL (4.0-11.0) Red Blood Count 3.26x10^6/uL (3.50-5.40) 3.75x10^6/uL (3.50-5.40) Hemoglobin 6.7g/dL (12.0-15.5) 8.6g/dL (12.0-15.5) Hematocrit 22.0% (36.0-47.0) 27.6% (36.0-47.0) Mean Corpuscular Volume 68fL (79-100) 74fL (79-100) Mean Corpuscular Hemoglobin 21pg (25-35) 23pg (25-35) Mean Corpuscular Hemoglobin Concent 30g/dL (31-37) 31g/dL (31-37) Red Cell Distribution Width 18.6% (11.5-14.5) 23.4% (11.5-14.5) Platelet Count 335x10^3/uL (140-400) 382x10^3/uL (140-400) Neutrophils (%) (Auto) 92% (31-73) 81% (31-73) Lymphocytes (%) (Auto) 5% (24-48) 13% (24-48) Monocytes (%) (Auto) 3% (0-9) 6% (0-9) Eosinophils (%) (Auto) 0% (0-3) 0% (0-3) Basophils (%) (Auto) 0% (0-3) 0% (0-3) Neutrophils # (Auto) 18.6x10^3uL (1.8-7.7) 10.0x10^3uL (1.8-7.7) Lymphocytes # (Auto) 1.1x10^3/uL (1.0-4.8) 1.6x10^3/uL (1.0-4.8) Monocytes # (Auto) 0.6x10^3/uL (0.0-1.1) 0.7x10^3/uL (0.0-1.1) Eosinophils # (Auto) 0.0x10^3/uL (0.0-0.7) 0.0x10^3/uL (0.0-0.7) Basophils # (Auto) 0.0x10^3/uL (0.0-0.2) 0.0x10^3/uL (0.0-0.2) Sodium Level 141mmol/L (136-145) 144mmol/L (136-145) Potassium Level 3.8mmol/L (3.5-5.1) 3.8mmol/L (3.5-5.1) Chloride Level 107mmol/L (98-107) 110mmol/L (98-107) Carbon Dioxide Level 27mmol/L (21-32) 26mmol/L (21-32) Anion Gap 7 (6-14) 8 (6-14) Blood Urea Nitrogen 12mg/dL (7-20) 18mg/dL (7-20) Creatinine 0.5mg/dL (0.6-1.0) 0.6mg/dL (0.6-1.0) Estimated GFR (Cockcroft-Gault) 142.1 115.1 Glucose Level 122mg/dL (70-99) 87mg/dL (70-99) Calcium Level 8.2mg/dL (8.5-10.1) 6.8mg/dL (8.5-10.1) Laboratory Tests Test 08/06/16 05:28 White Blood Count 12.3x10^3/uL (4.0-11.0) Red Blood Count 3.75x10^6/uL (3.50-5.40) Hemoglobin 8.6g/dL (12.0-15.5) Hematocrit 27.6% (36.0-47.0) Mean Corpuscular Volume 74fL (79-100) Mean Corpuscular Hemoglobin 23pg (25-35) Mean Corpuscular Hemoglobin Concent 31g/dL (31-37) Red Cell Distribution Width 23.4% (11.5-14.5) Platelet Count 382x10^3/uL (140-400) Neutrophils (%) (Auto) 81% (31-73) Lymphocytes (%) (Auto) 13% (24-48) Monocytes (%) (Auto) 6% (0-9) Eosinophils (%) (Auto) 0% (0-3) Basophils (%) (Auto) 0% (0-3) Neutrophils # (Auto) 10.0x10^3uL (1.8-7.7) Lymphocytes # (Auto) 1.6x10^3/uL (1.0-4.8) Monocytes # (Auto) 0.7x10^3/uL (0.0-1.1) Eosinophils # (Auto) 0.0x10^3/uL (0.0-0.7) Basophils # (Auto) 0.0x10^3/uL (0.0-0.2) Sodium Level 144mmol/L (136-145) Potassium Level 3.8mmol/L (3.5-5.1) Chloride Level 110mmol/L (98-107) Carbon Dioxide Level 26mmol/L (21-32) Anion Gap 8 (6-14) Blood Urea Nitrogen 18mg/dL (7-20) Creatinine 0.6mg/dL (0.6-1.0) Estimated GFR (Cockcroft-Gault) 115.1 Glucose Level 87mg/dL (70-99) Calcium Level 6.8mg/dL (8.5-10.1) Problem List Problems Medical Problems: (1) Ruptured appendicitis Status: Acute (2) Sepsis Status: Acute (3) Tubo-ovarian abscess Status: Acute Assessment/Plan A: POD#2 s/p LPSC RSO secondary to TOA Afebrile > 36 hours P: D/c home with PO abx. F/u in 2 weeks in clinic. Problems: JAREN SENIOR Jr, MD Aug 06, 2016 12:48
--- NOTE | 2016-08-06 12:49 | DISCH ---
DISCHARGE INSTRUCTIONS Condition on Discharge Condition on Discharge: Stable Activity After Discharge Activity Instructions for Disc: Activity as tolerated Lifting Instructions after Dis: No heavy lifting Driving Instructions after Dis: Do not drive today Diet after Discharge Diet after Discharge: Regular Contacting the DRMiriam after DC Call your doctor for: Concerns you may have Follow-Up Follow up with: Dr. Barba in 2 weeks. JAREN BARBA Jr, MD Aug 06, 2016 12:49
[2016-08-06] MEDS ORDERED: METR500T PO (12:52)
[2016-08-06] MEDS ORDERED: DOCU-27 PO (12:52)
[2016-08-06] MEDS ORDERED: AMOX1TAB61 PO (12:52)
[2016-08-06] MEDS ORDERED: FERR-26 PO (12:52)
[2016-08-06] MEDS ORDERED: IBUP-1060 PO (12:52)
[2016-08-06] MEDS ORDERED: OXYC-323 PO (12:52)
[2016-08-06 14:05] VITALS: BP 122/86
[2016-08-06] MEDS ORDERED: FLU VACC QUAD 2016-17 (36MOS+)/PF 0.5 ML SYRINGE. VAX IM ONE (14:30)
[2016-08-06] MEDS ORDERED: PNEUMOC CONJ VACC 23-VALENT 0.5 ML VIAL. VAX IM ONE (14:30)
[2016-08-06] MEDS ORDERED: FERROUS SULFATE 325 MG TABLET PO SCH (18:00)
[2016-08-07] MEDS ORDERED: ONDANSETRON PF 4 MG/2 ML VIAL. ONE (18:41)
--- NOTE | 2016-08-10 12:52 | PDOC3 ---
Discharge Summary* Date of Admission: Jul 31, 2016 Date of Discharge: Aug 06, 2016 Admitting Diagnosis Problems Medical Problems: (1) Ruptured appendicitis Status: Acute (2) Sepsis Status: Acute (3) Tubo-ovarian abscess Status: Acute Final Diagnosis 1. Right Tubo-Ovarian abscess with pelvic adhesions, s/p surgery on 08/04 -1 week hx of RLQ pain with n/v and febrile status prior to admission -CT showing RLQ abscess with phlegmon, likely from ruptured appendix. -WBC 14.9 upon admission, 2. Anemia, possibly surgical blood loss on chronic anemia due to periods heavy -Hgb 8.2 upon admission, 6.7 on 08/05/15 . 1U PRBC -Iron level low. Ferrous Sulfate added on 08/03 3. Hypokalemia, replaced (1) Ruptured appendicitis Status: Acute (2) Sepsis Status: Acute (3) Tubo-ovarian abscess Status: Acute CONSULTS Dr. Barba SUPERVISOR MILL Dr. Lizarraga surgery Dr. Pulido ID Procedures CT abd and pelvis US abd and pelvis surgery, see operative report Brief Hospital Course Ms. Cummings is a 35 old [sex] who presented with [ ] Disposition/Orders: D/C to Home CONDITION AT DISCHARGE: Improved Diet: Regular Scheduled Amoxicillin/Potassium Clav (Augmentin 875-125 Tablet) 1 TAB PO BID Amoxicillin/Potassium Clav (Augmentin 875-125 Tablet) 1 TAB PO BID Docusate Sodium (Colace) 1 CAP PO BID Ferrous Sulfate (Ferrous Sulfate) 1 TAB PO DAILY Hydrocodone/Apap 5-325 ([place] 5-325 Tablet) 1-2 TAB PO Q4-6HRS Metronidazole (Flagyl) 1 TAB PO BID Oxycodone/Apap 5-325 (Percocet 5-325 Mg Tablet) 1-2 TAB PO Q4-6HRS Scheduled PRN Ibuprofen (Ibuprofen) 800 MG PO PRN Q6HRS PRN PRN INFLAMMATION Miscellaneous Medications Citalopram Hydrobromide (Citalopram Hbr) 20 MG PO (Reported) Omeprazole (Omeprazole) 20 MG PO (Reported) FOLLOW UP APPOINTMENT: [facility] and PCP 1 week Time Spent Total time spent with patient [] minutes for coordination of care, counseling, and education. DYLON MARSHALL MD Aug 10, 2016 12:52
== END 2016-08-06 14:10 | disposition home or self-care (01) | DRG 854 ==
LOC: ER 17:36 → 4 NORTH 20:23 → 3 NORTH 08-04 13:27
PROVIDERS: ADMIT Family Medicine; ATTEND Family Medicine
PROC: 0UT54ZZ Resection of Right Fallopian Tube, Percutaneous Endoscopic Approach (ICD-10-PCS; 2016-08-04)
PROC: 0UT04ZZ Resection of Right Ovary, Percutaneous Endoscopic Approach (ICD-10-PCS; 2016-08-04)
PROC: 30233N1 Transfusion of Nonautologous Red Blood Cells into Peripheral Vein, Percutaneous Approach (ICD-10-PCS; principal; 2016-08-05)
DX: A41.9 Sepsis, unspecified organism (principal); E44.1 Mild protein-calorie malnutrition; N83.201 Unspecified ovarian cyst, right side; E87.6 Hypokalemia; J45.909 Unspecified asthma, uncomplicated; K21.9 Gastro-esophageal reflux disease without esophagitis; N70.93 Salpingitis and oophoritis, unspecified; N73.6 Female pelvic peritoneal adhesions (postinfective); D50.0 Iron deficiency anemia secondary to blood loss (chronic)
CPT/HCPCS: 36415; 74177; 76856; 80048; 80053; 81001; 81025; 82947; 83540; 83550; 83605; 83690; 84145; 85007; 85027; 86850; 86900; 86901; 86920; 87040; 87205; 87491; 87591; 87804; 88305; 93005; 96365; 96375; A4215; J0131; J0744; J0780; J1170; J1885; J2250; J2270; J2405; J2543; J2704; J2710; J3010; J3480; J3490; J7030; J7120; P9016; Q9967; S0028; 99285-25

== ENCOUNTER 2016-08-07 11:02 | Inpatient (IN) | payer OTHER ==
[~2016-08-07] VITALS: Ht 147.3 cm; Wt 56.0 kg
[~2016-08-07 11:02] MED LIST changes: +DOCU-27 PO; +FERR-26 PO; +IBUP-1060 PO; +METR500T PO; +OXYC-323 PO
[2016-08-07] MEDS ORDERED: IV NORMAL SALINE 1000ML BAG 1,000 ML IV ONE (14:00)
[2016-08-07] MEDS ORDERED: ONDANSETRON PF 4 MG/2 ML VIAL. IV ONE ×2 (14:00→17:30)
--- NOTE | 2016-08-07 14:08 | PHYS DOC ---
Past Medical History Past Medical History: Anxiety, Asthma, GERD Past Surgical History: , Other Additional Past Surgical Histo: d&c, R ovary and R tube removed Alcohol Use: None Drug Use: None Adult General Chief Complaint Chief Complaint: POST-OP PROBLEM HPI HPI 35-year-old female who recently had a tubo-ovarian abscess surgically drained/ removed presents with more abdominal pain. She states that she is on Flagyl and Augmentin at home but is been so nauseous she is unable to keep her medication down. She has not had any high fevers. She states the surgical incisions look okay. [] Review of Systems Review of Systems Constitutional: Denies fever or chills [] Eyes: Denies change in visual acuity, redness, or eye pain [] HENT: Denies nasal congestion or sore throat [] Respiratory: Denies cough or shortness of breath [] Cardiovascular: No additional information not addressed in HPI [] GI: Per history of present illness [] : Denies dysuria or hematuria [] Musculoskeletal: Denies back pain or joint pain [] Integument: Denies rash or skin lesions [] Neurologic: Denies headache, focal weakness or sensory changes [] Endocrine: Denies polyuria or polydipsia [] Current Medications Current Medications Current Medications Medications (Trade) Dose Ordered Sig/Rocky Start Time Stop Time Status Last Admin Dose Admin Fentanyl Citrate (Fentanyl 2ml Vial) 50 mcg PRN Q15MIN PRN 08/07/16 14:15 08/08/16 14:14 08/07/16 14:27 50 MCG Info (Do NOT chart on this entry -- for MONITORING) 1 each PRN DAILY PRN 08/07/16 14:15 08/09/16 14:14 Iohexol (Omnipaque 300 Mg/ml) 75 ml 1X ONCE 08/07/16 14:15 08/07/16 14:16 DC 08/07/16 14:15 75 ML Metronidazole 100 ml @ 100 mls/hr Q8HRS 08/07/16 17:30 Ondansetron HCl (Zofran) 8 mg 1X ONCE 08/07/16 14:00 08/07/16 14:01 DC 08/07/16 14:26 8 MG Piperacillin Sod/ Tazobactam Sod 1 each 1 each PRN DAILY PRN 08/07/16 17:15 Piperacillin Sod/ Tazobactam Sod/ Sodium Chloride (Zosyn/Iv Sodium Chloride 0.9% 50ml) 50 ml @ 100 mls/hr Q6HRS 08/07/16 18:00 Sodium Chloride (Iv Sodium Chloride 0.9% 1000ml Bag) 1,000 ml @ 1,000 mls/hr 1X ONCE 08/07/16 14:00 08/07/16 14:59 DC 08/07/16 14:27 1,000 MLS/HR Allergies Allergies Allergies Coded Allergies Type Severity Reaction Last Updated Verified No Known Drug Allergies 11/11/13 No Physical Exam Physical Exam Constitutional: Well developed, well nourished, mild to moderate distress, non- toxic appearance. [] HENT: Normocephalic, atraumatic, bilateral external ears normal, oropharynx moist, no oral exudates, nose normal. [] Eyes: PERRLA, EOMI, conjunctiva normal, no discharge. [] Neck: Normal range of motion, no tenderness, supple, no stridor. [] Cardiovascular:Heart rate regular rhythm, no murmur [] Lungs & Thorax: Bilateral breath sounds clear to auscultation [] Abdomen: Diffusely tender to palp no rebound or guarding surgical wounds are healing well. [] Skin: Warm, dry, no erythema, no rash. [] Back: No tenderness, no CVA tenderness. [] Extremities: No tenderness, no cyanosis, no clubbing, ROM intact, no edema. [] Neurologic: Alert and oriented X 3, normal motor function, normal sensory function, no focal deficits noted. [] Psychologic: Anxious [] Current Patient Data Vital Signs Vital Signs Date Time Temp Pulse Resp B/P Pulse Ox O2 Delivery O2 Flow Rate FiO2 08/07/16 13:13 98.0 72 18 128/89 99 Room Air 98.0 Lab Values Laboratory Tests Test 08/07/16 14:05 08/07/16 14:25 Urine Collection Type Unknown Urine Color Yellow Urine Clarity Clear Urine pH 8.0 Urine Specific [place] 1.015 Urine Protein Negativemg/dL (NEG-TRACE) Urine Glucose (UA) Negativemg/dL (NEG) Urine Ketones (Stick) Negativemg/dL (NEG) Urine Blood Negative (NEG) Urine Nitrite Negative (NEG) Urine Bilirubin Negative (NEG) Urine Urobilinogen Dipstick 0.2mg/dL (0.2 mg/dL) Urine Leukocyte Esterase Negative (NEG) Urine RBC 0/HPF (0-2) Urine WBC 0/HPF (0-4) Urine Squamous Epithelial Cells Mod/LPF Urine Bacteria 0/HPF (0-FEW) Urine Mucus Slight/LPF White Blood Count 17.3x10^3/uL (4.0-11.0) H Red Blood Count 5.05x10^6/uL (3.50-5.40) Hemoglobin 11.5g/dL (12.0-15.5) L Hematocrit 37.0% (36.0-47.0) Mean Corpuscular Volume 73fL (79-100) L Mean Corpuscular Hemoglobin 23pg (25-35) L Mean Corpuscular Hemoglobin Concent 31g/dL (31-37) Red Cell Distribution Width 23.3% (11.5-14.5) H Platelet Count 534x10^3/uL (140-400) H Neutrophils (%) (Auto) 88% (31-73) H Lymphocytes (%) (Auto) 8% (24-48) L Monocytes (%) (Auto) 5% (0-9) Eosinophils (%) (Auto) 0% (0-3) Basophils (%) (Auto) 0% (0-3) Neutrophils # (Auto) 15.2x10^3uL (1.8-7.7) H Lymphocytes # (Auto) 1.3x10^3/uL (1.0-4.8) Monocytes # (Auto) 0.8x10^3/uL (0.0-1.1) Eosinophils # (Auto) 0.0x10^3/uL (0.0-0.7) Basophils # (Auto) 0.0x10^3/uL (0.0-0.2) Segmented Neutrophils % 78% (35-66) H Band Neutrophils % 5% (0-9) Lymphocytes % 12% (24-48) L Monocytes % 5% (0-10) Toxic Granulation Mod Platelet Estimate Adequate (ADEQUATE) Polychromasia Slight Hypochromasia Mod Anisocytosis Mod Microcytosis Mod Target Cells Few Sodium Level 143mmol/L (136-145) Potassium Level 3.8mmol/L (3.5-5.1) Chloride Level 109mmol/L (98-107) H Carbon Dioxide Level 25mmol/L (21-32) Anion Gap 9 (6-14) Blood Urea Nitrogen 9mg/dL (7-20) Creatinine 0.5mg/dL (0.6-1.0) L Estimated GFR (Cockcroft-Gault) 142.1 BUN/Creatinine Ratio 18 (6-20) Glucose Level 90mg/dL (70-99) Calcium Level 8.9mg/dL (8.5-10.1) Total Bilirubin 0.3mg/dL (0.2-1.0) Aspartate Amino Transferase (AST) 16U/L (15-37) Alanine Aminotransferase (ALT) 10U/L (14-59) L Alkaline Phosphatase 55U/L (46-116) Total Protein 6.3g/dL (6.4-8.2) L Albumin 1.9g/dL (3.4-5.0) L Albumin/Globulin Ratio 0.4 (1.0-1.7) L Lipase 256U/L (73-393) Laboratory Tests 08/07/16 14:25 Laboratory Tests 08/07/16 14:25 EKG EKG [] Radiology/Procedures Radiology/Procedures [] [facility] [address] [place], [place] [id number] IMAGING REPORT Signed PATIENT: AALIYAH MONTANEZ ACCOUNT: [id number] : 1980 LOCATION: ER AGE: 35 SEX: F EXAM STATUS: REG ER ORD. PHYSICIAN: JOVANNA ADAMS DO REASON: post op pain r/o abscess PROCEDURE: ABD PELV W/ IV CONTRAST ONLY CT study of the abdomen and pelvis with contrast Clinical indications: Postop pain. Had recent right-sided salpingo-oophorectomy. Possible abscess. Technique: After IV infusion of 75 mL of Omnipaque 300, helical CT scanning of the abdomen and pelvis was performed. No GI contrast was administered. PQRS Compliance Statement: One or more of the following individualized dose reduction techniques were utilized for this examination: 1. Automated exposure control 2. Adjustment of the mA and/or kV according to patient size 3. Use of iterative reconstruction technique Comparison: July 31, 2016. Findings: The liver and spleen and pancreas and gallbladder are unremarkable. No biliary ductal dilatation is seen. No adrenal mass is evident. Both kidneys are normal without hydronephrosis. Urinary bladder wall is smooth. There is a small air-fluid level within the urinary bladder which may be due to recent catheterization. No uterine mass is evident. There is a round fluid collection within the cul-de-sac with mild wall enhancement. This could represent an abscess within the dependent portion of the pelvis. This measures 9.2 cm in greatest transverse dimension and 6.6 cm in greatest vertical dimension and 4.2 cm in greatest AP dimension. There is another round fluid collection with an enhancing rim within the right paracolic gutter which measures 5.7 cm transversely and 2.9 cm in AP dimension and 6.6 cm in vertical dimension.Small amount of ascites is seen throughout the abdomen and pelvis. Generalized mesenteric edema is seen. There is diffuse wall thickening of large and small bowel which may represent reactive enterocolitis. Otherwise no obstructive bowel pattern is seen. No free air is seen. There are bubbles of air within the subcutaneous soft tissues of the anterior abdominal wall related to the recent surgical procedure. There is generalized subcutaneous soft tissue edema of the abdomen and pelvis. Small bilateral pleural effusions and associated dependent lung base atelectasis is seen. No focal aneurysmal dilatation of the abdominal aorta is seen. No enlarged abdominal or pelvic lymphadenopathy is evident. 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 No osteolytic process is seen. IMPRESSION: Generalized mesenteric edema and small amount of ascites. Peritonitis is possible. There is bowel wall thickening of the small bowel and colon most likely representing reactive enterocolitis. There are 2 round fluid collections with rim enhancement, one within the dependent portion of the pelvis in the cul-de-sac and the other one located within the right paracolic gutter. This is consistent with abscesses. Generalized subcutaneous soft tissue edema of the abdomen and pelvis which could represent generalized anasarca or cellulitis. Small bilateral pleural effusions. DICTATED and SIGNED BY: MARCO MAJANO MD DATE: 08/07/16 5313 CC: ERIC JO MD; JOVANNA ADAMS DO ~ Course & Med Decision Making Course & Med Decision Making Pertinent Labs and Imaging studies reviewed. (See chart for details) I assumed care of this patient at shift change from Dr. Adams. Patient continues to experience nausea, pain in the ED, received additional antiemetics and pain medication along with IV fluids. Leukocytosis noted, has increased from patient's previous improvement, is now 17.3 with bandemia and left shift. CT of the abdomen and pelvis reveals abscess in the pelvis, inflammation of the colon. I did discuss findings as above with Dr. Barba of [facility] who did perform the patient's surgery, he requests the patient be admitted to his service as a full admission to the medical surgical floor for continued IV antibiotics and supportive care. Patient is agreeable with this plan as stated. Bridge orders completed per Dr. Barba's request. Dragon Disclaimer Dragon Disclaimer This electronic medical record was generated, in whole or in part, using a voice recognition dictation system. Departure Impression: Primary Impression: Abdominal abscess Disposition: 09 ADMITTED INPATIENT Admitting Physician: Other Condition: IMPROVED Referrals: ERIC JO MD (PCP) Departure Departure Impression: Primary Impression: Abdominal abscess Disposition: 09 ADMITTED INPATIENT Condition: IMPROVED Referrals: ERIC JO MD (PCP) JOVANNA ADAMS DO Aug 07, 2016 14:08 YAMILETH DIALLO DO Aug 07, 2016 17:19
[2016-08-07] MEDS ORDERED: IOHEXOL 300 MG/ML 75 ML VIAL IV ONE (14:15)
[2016-08-07] MEDS ORDERED: FENTANYL PF 100 MCG/2 ML VIAL. IV PRN (14:15)
[2016-08-07] MEDS ORDERED: CONTRAST GIVEN MC PRN (14:15)
[2016-08-07 14:24] LABS: BILIRUBIN,URINE NEGATIVE (NEG); GLUCOSE,URINE NEGATIVE (NEG); NITRITE,URINE NEGATIVE (NEG); PROTEIN,URINE NEGATIVE (NEG-TRACE); UROBILINOGEN,URINE 0.2 mg/dL (0.2 mg/dL)
[2016-08-07 14:33] LABS: BASO % 0 % (0-3); EOS % 0 % (0-3); HEMOGLOBIN 11.5 g/dL (12.0-15.5); LYMPH # 1.3 x10^3/uL (1.0-4.8); LYMPH % 8 % (24-48); MEAN CORPUSCULAR HEMOGLOBIN 23 pg (25-35); MEAN CORPUSCULAR HGB CONC 31 g/dL (31-37); MEAN CORPUSCULAR VOLUME 73 fL (79-100); MONO % 5 % (0-9); NEUT % 88 % (31-73); PLATELET COUNT 534 x10^3/uL (140-400); RED BLOOD COUNT 5.05 x10^6/uL (3.50-5.40); RED CELL DISTRIBUTION WIDTH 23.3 % (11.5-14.5); WHITE BLOOD COUNT 17.3 x10^3/uL (4.0-11.0)
[2016-08-07 14:36] LABS: BACTERIA,URINE 0 /HPF (0-FEW); RBC,URINE 0 /HPF (0-2); SQUAMOUS EPITHELIAL CELL,UR MOD /LPF; WBC,URINE 0 /HPF (0-4)
[2016-08-07 14:50] LABS: CALCIUM 8.9 mg/dL (8.5-10.1); CREATININE 0.5 mg/dL (0.6-1.0); GFR 142.1; POTASSIUM 3.8 mmol/L (3.5-5.1)
[2016-08-07 14:57] LABS: ALBUMIN 1.9 g/dL (3.4-5.0); ALBUMIN/GLOBULIN RATIO 0.4 (1.0-1.7); TOTAL BILIRUBIN 0.3 mg/dL (0.2-1.0); TOTAL PROTEIN 6.3 g/dL (6.4-8.2)
--- NOTE | 2016-08-07 16:20 | RAD ---
CT study of the abdomen and pelvis with contrast Clinical indications: Postop pain. Had recent right-sided salpingo-oophorectomy. Possible abscess. Technique: After IV infusion of 75 mL of Omnipaque 300, helical CT scanning of the abdomen and pelvis was performed. No GI contrast was administered. PQRS Compliance Statement: One or more of the following individualized dose reduction techniques were utilized for this examination: 1. Automated exposure control 2. Adjustment of the mA and/or kV according to patient size 3. Use of iterative reconstruction technique Comparison: July 31, 2016. Findings: The liver and spleen and pancreas and gallbladder are unremarkable. No biliary ductal dilatation is seen. No adrenal mass is evident. Both kidneys are normal without hydronephrosis. Urinary bladder wall is smooth. There is a small air-fluid level within the urinary bladder which may be due to recent catheterization. No uterine mass is evident. There is a round fluid collection within the cul-de-sac with mild wall enhancement. This could represent an abscess within the dependent portion of the pelvis. This measures 9.2 cm in greatest transverse dimension and 6.6 cm in greatest vertical dimension and 4.2 cm in greatest AP dimension. There is another round fluid collection with an enhancing rim within the right paracolic gutter which measures 5.7 cm transversely and 2.9 cm in AP dimension and 6.6 cm in vertical dimension.Small amount of ascites is seen throughout the abdomen and pelvis. Generalized mesenteric edema is seen. There is diffuse wall thickening of large and small bowel which may represent reactive enterocolitis. Otherwise no obstructive bowel pattern is seen. No free air is seen. There are bubbles of air within the subcutaneous soft tissues of the anterior abdominal wall related to the recent surgical procedure. There is generalized subcutaneous soft tissue edema of the abdomen and pelvis. Small bilateral pleural effusions and associated dependent lung base atelectasis is seen. No focal aneurysmal dilatation of the abdominal aorta is seen. No enlarged abdominal or pelvic lymphadenopathy is evident. 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 No osteolytic process is seen. IMPRESSION: Generalized mesenteric edema and small amount of ascites. Peritonitis is possible. There is bowel wall thickening of the small bowel and colon most likely representing reactive enterocolitis. There are 2 round fluid collections with rim enhancement, one within the dependent portion of the pelvis in the cul-de-sac and the other one located within the right paracolic gutter. This is consistent with abscesses. Generalized subcutaneous soft tissue edema of the abdomen and pelvis which could represent generalized anasarca or cellulitis. Small bilateral pleural effusions.
[2016-08-07 16:30] LABS: HYPOCHROMIA MOD; MICROCYTOSIS MOD; PLT ESTIMATE ADEQUATE (ADEQUATE); POLYCHROMASIA SLIGHT
[2016-08-07 16:31] LABS: ANISOCYTOSIS MOD; TARGET CELLS FEW; TOXIC GRANULATION MOD
[2016-08-07] MEDS ORDERED: PIP/TAZO PER PHARMACY MC PRN (17:15)
[2016-08-07] MEDS: PIPERACILLIN/TAZOBACTAM 3.375 GM in IV NORMAL SALINE 50ML 50 ML IV SCH ×2 (18:43→23:48)
[2016-08-07] MEDS ORDERED: ACETAMINOPHEN 325 MG TABLET. PO PRN (18:45)
[2016-08-07 19:16] VITALS: BP 128/81
[2016-08-07] MEDS: IV NORMAL SALINE 1000ML BAG 1,000 ML IV SCH (20:22)
[2016-08-07] MEDS: ONDANSETRON PF 4 MG/2 ML VIAL. IV PRN (21:42)
[2016-08-07 23:00] VITALS: BP 133/86
--- NOTE | 2016-08-07 23:04 | ACF ---
Admission Forms Criteria ABDOMINAL PAIN Clinical Indications for Admission to Inpatient Care (Place 'X' for any and all applicable criteria): Admission is indicated for ANY ONE of the following(1)(2)(3)(4)(5): [ X]I. Inpatient admission required rather than observation care (Also use Abdominal Pain: Observation Care, as appropriate) because of ANY ONE of the following: [X ]a) Severe pain requiring acute inpatient management [ X]b) Identification of etiology/finding that requires inpatient care (eg, aortic dissection, free air) [ ]c) Absent bowel sounds with complete ileus(6) [ ]d) Suspected toxic megacolon [ ]e) Severe electrolyte abnormalities requiring inpatient care [ ]f) High fever or infection requiring inpatient admission as indicated by ANY ONE of following(7)(8): [ ] i) Appropriate outpatient or observational care antimicrobial treatment unavailable, not effective, or not feasible [ ] ii) Documented bacteremia [ ] iii) Temperature > 104.9 degrees F (oral) [ ] iv) T >103.1 F (oral) or < 96.8 F(rectal) that does not respond to all emergency treatment measures [ ]g) Signs of intestinal obstruction [B] [ ]h) Hemodynamic instability [ ]i) IV fluid to replace significant ongoing losses (greater than 3 L/m2 per day) (12)(13) [ ]j) Percutaneous or open drainage (eg, abscess, biliary tract ) procedures [ ]k) Parenteral nutrition regimen that must be implemented on inpatient basis [ X]l) Other condition,treatment or monitoring requiring inpatient admission. [ ]II. Peritoneal signs present [ ]III. Surgery needed that cannot be performed on an ambulatory basis. [ ]IV. Evaluation requires patient to not eat or drink for extended period ( eg, more than 24 hours). [ ]V. Contraindications and/or Inappropriate clinical situations for Observational Care in patients with abdominal pain, when ANY ONE of the following is required: [ ]a) Thorough evaluation is required to prevent catastrophic events due to delays in diagnosing (e.g.Mesenteric ischemia) 1,3 [ ]b) Patient with severe pathology or with chronic symptoms unlikely to improve in the ED stay (3) [ ]. General contraindications and/or Inappropriate clinical situations for Observational Care in patients with abdominal pain, when ANY ONE of the following is required: [ ]a) Prediction of prolongation of LOS based on ANY ONE of the following may be considered as a contraindication for observational care 2, 3, 4, 5, 6, 7, 8, 9, 10, 11 [ ]i) Age > 65 yrs. [ ]ii) Patient arriving by ambulance [ ]iii) Patient with high acuity [ ]iv) Patient requiring vital sign monitoring [ ]v) Patient on IV medication [ ]b) Systolic blood pressures 180mmHg 3,12 [ ]c) Patient with altered mental status including delirium and other alteration of consciousness, (3) [ ]d) Patient whose discharge disposition will be to a detention home or rehabilitation home should not be managed in Emergency Department Observation Unit. CMS rule requires 3 days hospital stay before such placement.3,13 [ ]e) Patient with failure to thrive due to broad array of etiologies 3,16,17 [ ]f) Inability to ambulate 3,14 Extended stay beyond goal length of stay may be needed for(2)(3): [ ]a) Persistent abdominal pain with suspected intra-abdominal process [ ]b) Diagnosed condition requiring continued stay (e.g., pancreatitis, complicated diverticulitis) [ ]c) Surgery (e.g., colectomy) The original [facility] content created by [employer] has been revised. The portions of the content which have been revised are identified through the use of italic text or in bold, and [facility] has neither reviewed nor approved the modified material.All other unmodified content is copyright [employer] [facility]. Please see references footnoted in the original [facility] edition 2016 Admission Criteria Met?: Yes KATJA CASTILLO Aug 07, 2016 23:04
[2016-08-08] MEDS: MORPHINE SULFATE 4 MG/ML DISP.SYRIN. IV PRN ×4 (00:30→17:20)
[2016-08-08 03:00] VITALS: BP 121/70
[2016-08-08] MEDS: IV NORMAL SALINE 1000ML BAG 1,000 ML IV SCH ×2 (03:03→12:32)
[2016-08-08] MEDS: METRONIDAZOLE 500mg PREMIX 100 ML IV SCH ×4 (05:24→22:02)
[2016-08-08] MEDS: ONDANSETRON PF 4 MG/2 ML VIAL. IV PRN (05:53)
[2016-08-08] MEDS: PIPERACILLIN/TAZOBACTAM 3.375 GM in IV NORMAL SALINE 50ML 50 ML IV SCH ×4 (06:19→23:51)
[2016-08-08 07:00] VITALS: BP 120/73
[2016-08-08 07:02] LABS: BASO % 0 % (0-3); EOS % 0 % (0-3); HEMATOCRIT 31.5 % (36.0-47.0); HEMOGLOBIN 9.7 g/dL (12.0-15.5); LYMPH # 1.7 x10^3/uL (1.0-4.8); LYMPH % 11 % (24-48); MEAN CORPUSCULAR HEMOGLOBIN 23 pg (25-35); MEAN CORPUSCULAR HGB CONC 31 g/dL (31-37); MEAN CORPUSCULAR VOLUME 74 fL (79-100); MONO % 7 % (0-9); NEUT % 82 % (31-73); PLATELET COUNT 510 x10^3/uL (140-400); RED BLOOD COUNT 4.27 x10^6/uL (3.50-5.40); RED CELL DISTRIBUTION WIDTH 23.4 % (11.5-14.5); WHITE BLOOD COUNT 15.1 x10^3/uL (4.0-11.0)
[2016-08-08 07:26] LABS: CALCIUM 8.2 mg/dL (8.5-10.1); CREATININE 0.5 mg/dL (0.6-1.0); GFR 142.1; POTASSIUM 3.3 mmol/L (3.5-5.1)
[2016-08-08 11:00] VITALS: BP 118/75
--- NOTE | 2016-08-08 13:57 | PDOC1 ---
History and Physical Date of Admission Date of Admission DATE: 08/08/16 TIME: 13:52 Identification/Chief Complaint Chief Complaint n/v and abd pain Source Source: Chart review, Patient History of Present Illness History of Present Illness 35 y/o readmitted to hospital for n/v and abd pain following d/c from treatment of ovarian abscess. Pt. failed out patient abx treatment. Counseled on IV abx for next few days. She feels better since admission. Occasional dysuria. Past Medical History Psych: Anxiety Past Surgical History Past Surgical History: , [facility] Family History Family History: No Significant Social History ALCOHOL: rare Drugs: None Current Problem List Problem List Problems Medical Problems: (1) Abdominal abscess Status: Acute Problems: Current Medications Current Medications Current Medications Sodium Chloride (Iv Sodium Chloride 0.9% 1000ml Bag) 1,000 ml @ 1,000 mls/hr 1X ONCE IV Last administered on 08/07/16 14:27; Start 08/07/16 at 14:00; Stop 08/07/16 at 14:59; Status DC Ondansetron HCl (Zofran) 8 mg 1X ONCE IV Last administered on 08/07/16 14:26; Start 08/07/16 at 14:00; Stop 08/07/16 at 14:01; Status DC Iohexol (Omnipaque 300 Mg/ml) 75 ml 1X ONCE IV Last administered on 08/07/16 14:15; Start 08/07/16 at 14:15; Stop 08/07/16 at 14:16; Status DC Fentanyl Citrate (Fentanyl 2ml Vial) 50 mcg PRN Q15MIN PRN IV PAIN GREATER THAN 3/10 Last administered on 08/07/16 14:27; Start 08/07/16 at 14:15; Stop 04/14 at 14:14 Info (Do NOT chart on this entry -- for MONITORING) 1 each PRN DAILY PRN MC SEE COMMENTS; Start 08/07/16 at 14:15; Stop 08/09/16 at 14:14 Piperacillin Sod/ Tazobactam Sod 1 each 1 each PRN DAILY PRN MC SEE COMMENTS; Start 08/07/16 at 17:15 Metronidazole 100 ml @ 100 mls/hr Q8HRS IV Last administered on 08/08/16 05: 25; Start 08/07/16 at 17:30 Piperacillin Sod/ Tazobactam Sod/ Sodium Chloride (Zosyn/Iv Sodium Chloride 0.9 % 50ml) 50 ml @ 100 mls/hr Q6HRS IV Last administered on 08/08/16 12:31; Start 08/07/16 at 18:00 Ondansetron HCl (Zofran) 4 mg 1X ONCE IV Last administered on 08/07/16 18:44; Start 08/07/16 at 17:30; Stop 08/07/16 at 17:31; Status DC Ondansetron HCl (Zofran) 4 mg PRN Q8HRS PRN IV NAUSEA/VOMITING Last administered on 08/08/16 05:53; Start 08/07/16 at 18:45; Stop 08/08/16 at 18:44 Morphine Sulfate 4 mg 4 mg PRN Q2HR PRN IV PAIN Last administered on 08/08/16 12:30; Start 08/07/16 at 18:45; Stop 08/08/16 at 18:44 Sodium Chloride (Iv Sodium Chloride 0.9% 1000ml Bag) 1,000 ml @ 125 mls/hr Q8H IV Last administered on 08/08/16 12:32; Start 08/07/16 at 18:34; Stop 08/08/16 at 18:33 Acetaminophen (Tylenol) 650 mg PRN Q4HRS PRN PO FEVER; Start 08/07/16 at 18:45; Stop 08/08/16 at 18:44 Active Scripts Active Ferrous Sulfate 325 Mg Tablet 1 Tab PO DAILY Augmentin 875-125 Tablet (Amoxicillin/Potassium Clav) 1 Each Tablet 1 Tab PO BID 7 Days Flagyl (Metronidazole) 500 Mg Tablet 1 Tab PO BID 7 Days Colace (Docusate Sodium) 100 Mg Capsule 1 Cap PO BID Percocet 5-325 Mg Tablet (Oxycodone/Acetaminophen) 1 Each Tablet 1-2 Tab PO Q4- 6HRS Ibuprofen 800 Mg Tablet 800 Mg PO PRN Q6HRS PRN [place] 5-325 Tablet (Acetaminophen/Hydrocodone Bitart) 1 Each Tablet 1-2 Tab PO Q4-6HRS Augmentin 875-125 Tablet (Amoxicillin/Potassium Clav) 1 Each Tablet 1 Tab PO BID Reported Omeprazole 20 Mg Tablet.dr 20 Mg PO Citalopram Hbr (Citalopram Hydrobromide) 20 Mg Tablet 20 Mg PO Allergies Allergies: Coded Allergies: No Known Drug Allergies (Unverified , 11/11/13) ROS General: YES: Malaise, No: Appetite, Chills, Fatigue, Night Sweats, Other PSYCHOLOGICAL ROS: No: Anxiety, Behavioral Disorder, Concentration difficultie , Decreased libido, Depression, Disorientation, Hallucinations, Hostility, Irritablity, Memory difficulties, Mood Swings, Obsessive thoughts, Other, Physical abuse, Sexual abuse, Sleep disturbances, Suicidal ideation Eyes: No Blurry vision, No Decreased vision, No Double vision, No Dry eyes, No Excessive tearing, No Eye Pain, No Itchy Eyes, No Loss of vision, No Other, No Photophobia, No Scotomata, No Uses contacts, No Uses glasses HEENT: No: Epistaxis, Heacaches, Hearing change, Nasal congestion, Nasal discharge, Oral lesions, Other, Sinus pain, Sneezing, Snoring, Sore Throat, Tinnitus, Vertigo, Visual Changes, Vocal changes ALLERGY AND IMMUNOLOGY: No: Hives, Insect Bite Sensitivity, Itchy/Watery Eyes, Nasal Congestion, Other, Post Nasal Drip, Seasonal Allergies Hematological and Lymphatic: No: Bleeding Problems, Blood Clots, Blood Transfusions, Brusing, Night Sweats, Other, Pallor, Swollen Lymph Nodes ENDOCRINE: No: Breast Changes, Galactorrhea, Hair Pattern Changes, Hot Flashes , Malaise/lethargy, Mood Swings, Other, Palpitations, Polydipsia/polyuria, Skin Changes, Temperature Intolerance, Unexpected Weight Changes Breast: No New/Changing Breast Lumps, No Nipple changes, No Nipple discharge, No Other Respiratory: No: Cough, Hemoptysis, Orthopnea, Other, Pleuritic Pain, SOB with excertion, Shortness of breath, Sputum Changes, Stridor, Tachypnea, Wheezing Cardiovascular: No Chest Pain, No Edema, No Lt Headedness, No Orthopnea, No Other, No Palpitations, No Paroxysmal Noc. Dyspnea Gastrointestinal: Yes Nausea, No Abdominal Pain, No Constipation, No Diarrhea, No Hematochezia, No Melena, No Other, No Vomiting Genitourinary: YES Dysuria, No , No , No , No , No , No , No , No Discharge, No Flank Pain, No Frequency , No Hematuria, No Incontinence, No Other, No Pain, No Retention, No Urgency Physical Exam General: Alert, Oriented X3, Cooperative HEENT: Atraumatic Lungs: Clear to auscultation Heart: S1S2 Abdomen: Normal bowel sounds, Soft, No masses, Other (mild tenderness) Vitals Vitals Vital Signs Date Time Temp Pulse Resp B/P Pulse Ox O2 Delivery O2 Flow Rate FiO2 08/08/16 13:13 Room Air 08/08/16 11:00 98.1 77 18 118/75 98 98.1 Labs Labs Laboratory Tests Test 08/07/16 14:05 08/07/16 14:25 08/08/16 05:50 Urine Collection Type Unknown Urine Color Yellow Urine Clarity Clear Urine pH 8.0 Urine Specific [place] 1.015 Urine Protein Negativemg/dL (NEG-TRACE) Urine Glucose (UA) Negativemg/dL (NEG) Urine Ketones (Stick) Negativemg/dL (NEG) Urine Blood Negative (NEG) Urine Nitrite Negative (NEG) Urine Bilirubin Negative (NEG) Urine Urobilinogen Dipstick 0.2mg/dL (0.2 mg/dL) Urine Leukocyte Esterase Negative (NEG) Urine RBC 0/HPF (0-2) Urine WBC 0/HPF (0-4) Urine Squamous Epithelial Cells Mod/LPF Urine Bacteria 0/HPF (0-FEW) Urine Mucus Slight/LPF White Blood Count 17.3x10^3/uL (4.0-11.0) 15.1x10^3/uL (4.0-11.0) Red Blood Count 5.05x10^6/uL (3.50-5.40) 4.27x10^6/uL (3.50-5.40) Hemoglobin 11.5g/dL (12.0-15.5) 9.7g/dL (12.0-15.5) Hematocrit 37.0% (36.0-47.0) 31.5% (36.0-47.0) Mean Corpuscular Volume 73fL (79-100) 74fL (79-100) Mean Corpuscular Hemoglobin 23pg (25-35) 23pg (25-35) Mean Corpuscular Hemoglobin Concent 31g/dL (31-37) 31g/dL (31-37) Red Cell Distribution Width 23.3% (11.5-14.5) 23.4% (11.5-14.5) Platelet Count 534x10^3/uL (140-400) 510x10^3/uL (140-400) Neutrophils (%) (Auto) 88% (31-73) 82% (31-73) Lymphocytes (%) (Auto) 8% (24-48) 11% (24-48) Monocytes (%) (Auto) 5% (0-9) 7% (0-9) Eosinophils (%) (Auto) 0% (0-3) 0% (0-3) Basophils (%) (Auto) 0% (0-3) 0% (0-3) Neutrophils # (Auto) 15.2x10^3uL (1.8-7.7) 12.4x10^3uL (1.8-7.7) Lymphocytes # (Auto) 1.3x10^3/uL (1.0-4.8) 1.7x10^3/uL (1.0-4.8) Monocytes # (Auto) 0.8x10^3/uL (0.0-1.1) 1.0x10^3/uL (0.0-1.1) Eosinophils # (Auto) 0.0x10^3/uL (0.0-0.7) 0.1x10^3/uL (0.0-0.7) Basophils # (Auto) 0.0x10^3/uL (0.0-0.2) 0.0x10^3/uL (0.0-0.2) Segmented Neutrophils % 78% (35-66) Band Neutrophils % 5% (0-9) Lymphocytes % 12% (24-48) Monocytes % 5% (0-10) Toxic Granulation Mod Platelet Estimate Adequate (ADEQUATE) Polychromasia Slight Hypochromasia Mod Anisocytosis Mod Microcytosis Mod Target Cells Few Sodium Level 143mmol/L (136-145) 142mmol/L (136-145) Potassium Level 3.8mmol/L (3.5-5.1) 3.3mmol/L (3.5-5.1) Chloride Level 109mmol/L (98-107) 107mmol/L (98-107) Carbon Dioxide Level 25mmol/L (21-32) 25mmol/L (21-32) Anion Gap 9 (6-14) 10 (6-14) Blood Urea Nitrogen 9mg/dL (7-20) 4mg/dL (7-20) Creatinine 0.5mg/dL (0.6-1.0) 0.5mg/dL (0.6-1.0) Estimated GFR (Cockcroft-Gault) 142.1 142.1 BUN/Creatinine Ratio 18 (6-20) Glucose Level 90mg/dL (70-99) 72mg/dL (70-99) Calcium Level 8.9mg/dL (8.5-10.1) 8.2mg/dL (8.5-10.1) Total Bilirubin 0.3mg/dL (0.2-1.0) Aspartate Amino Transf (AST/SGOT) 16U/L (15-37) Alanine Aminotransferase (ALT/SGPT) 10U/L (14-59) Alkaline Phosphatase 55U/L (46-116) Total Protein 6.3g/dL (6.4-8.2) Albumin 1.9g/dL (3.4-5.0) Albumin/Globulin Ratio 0.4 (1.0-1.7) Lipase 256U/L (73-393) Laboratory Tests Test 08/07/16 14:05 08/07/16 14:25 08/08/16 05:50 Urine Collection Type Unknown Urine Color Yellow Urine Clarity Clear Urine pH 8.0 Urine Specific [place] 1.015 Urine Protein Negativemg/dL (NEG-TRACE) Urine Glucose (UA) Negativemg/dL (NEG) Urine Ketones (Stick) Negativemg/dL (NEG) Urine Blood Negative (NEG) Urine Nitrite Negative (NEG) Urine Bilirubin Negative (NEG) Urine Urobilinogen Dipstick 0.2mg/dL (0.2 mg/dL) Urine Leukocyte Esterase Negative (NEG) Urine RBC 0/HPF (0-2) Urine WBC 0/HPF (0-4) Urine Squamous Epithelial Cells Mod/LPF Urine Bacteria 0/HPF (0-FEW) Urine Mucus Slight/LPF White Blood Count 17.3x10^3/uL (4.0-11.0) 15.1x10^3/uL (4.0-11.0) Red Blood Count 5.05x10^6/uL (3.50-5.40) 4.27x10^6/uL (3.50-5.40) Hemoglobin 11.5g/dL (12.0-15.5) 9.7g/dL (12.0-15.5) Hematocrit 37.0% (36.0-47.0) 31.5% (36.0-47.0) Mean Corpuscular Volume 73fL (79-100) 74fL (79-100) Mean Corpuscular Hemoglobin 23pg (25-35) 23pg (25-35) Mean Corpuscular Hemoglobin Concent 31g/dL (31-37) 31g/dL (31-37) Red Cell Distribution Width 23.3% (11.5-14.5) 23.4% (11.5-14.5) Platelet Count 534x10^3/uL (140-400) 510x10^3/uL (140-400) Neutrophils (%) (Auto) 88% (31-73) 82% (31-73) Lymphocytes (%) (Auto) 8% (24-48) 11% (24-48) Monocytes (%) (Auto) 5% (0-9) 7% (0-9) Eosinophils (%) (Auto) 0% (0-3) 0% (0-3) Basophils (%) (Auto) 0% (0-3) 0% (0-3) Neutrophils # (Auto) 15.2x10^3uL (1.8-7.7) 12.4x10^3uL (1.8-7.7) Lymphocytes # (Auto) 1.3x10^3/uL (1.0-4.8) 1.7x10^3/uL (1.0-4.8) Monocytes # (Auto) 0.8x10^3/uL (0.0-1.1) 1.0x10^3/uL (0.0-1.1) Eosinophils # (Auto) 0.0x10^3/uL (0.0-0.7) 0.1x10^3/uL (0.0-0.7) Basophils # (Auto) 0.0x10^3/uL (0.0-0.2) 0.0x10^3/uL (0.0-0.2) Segmented Neutrophils % 78% (35-66) Band Neutrophils % 5% (0-9) Lymphocytes % 12% (24-48) Monocytes % 5% (0-10) Toxic Granulation Mod Platelet Estimate Adequate (ADEQUATE) Polychromasia Slight Hypochromasia Mod Anisocytosis Mod Microcytosis Mod Target Cells Few Sodium Level 143mmol/L (136-145) 142mmol/L (136-145) Potassium Level 3.8mmol/L (3.5-5.1) 3.3mmol/L (3.5-5.1) Chloride Level 109mmol/L (98-107) 107mmol/L (98-107) Carbon Dioxide Level 25mmol/L (21-32) 25mmol/L (21-32) Anion Gap 9 (6-14) 10 (6-14) Blood Urea Nitrogen 9mg/dL (7-20) 4mg/dL (7-20) Creatinine 0.5mg/dL (0.6-1.0) 0.5mg/dL (0.6-1.0) Estimated GFR (Cockcroft-Gault) 142.1 142.1 BUN/Creatinine Ratio 18 (6-20) Glucose Level 90mg/dL (70-99) 72mg/dL (70-99) Calcium Level 8.9mg/dL (8.5-10.1) 8.2mg/dL (8.5-10.1) Total Bilirubin 0.3mg/dL (0.2-1.0) Aspartate Amino Transf (AST/SGOT) 16U/L (15-37) Alanine Aminotransferase (ALT/SGPT) 10U/L (14-59) Alkaline Phosphatase 55U/L (46-116) Total Protein 6.3g/dL (6.4-8.2) Albumin 1.9g/dL (3.4-5.0) Albumin/Globulin Ratio 0.4 (1.0-1.7) Lipase 256U/L (73-393) VTE Prophylaxis Ordered VTE Prophylaxis Devices: No VTE Pharmacological Prophylaxi: No Assessment/Plan Assessment/Plan A: Peritonitis secondary to ovarian abscess removal P: Continue IV abx for next 5-7 days. JAREN SENIOR Jr, MD Aug 08, 2016 13:57
[2016-08-08 15:00] VITALS: BP 124/72
[2016-08-08] MEDS ORDERED: OXYCODONE/APAP 5/325 TABLET. PO PRN ×2 (19:30)
[2016-08-08 19:58] VITALS: BP 122/73
[2016-08-08 22:39] VITALS: BP 123/78
[2016-08-09 03:59] VITALS: BP 130/83
[2016-08-09] MEDS: PIPERACILLIN/TAZOBACTAM 3.375 GM in IV NORMAL SALINE 50ML 50 ML IV SCH ×4 (05:33→23:20)
[2016-08-09] MEDS: METRONIDAZOLE 500mg PREMIX 100 ML IV SCH ×3 (06:35→22:04)
[2016-08-09 07:00] VITALS: BP 125/78
[2016-08-09 11:00] VITALS: BP 125/80
--- NOTE | 2016-08-09 12:04 | PDOC ---
SURGICAL PROGRESS NOTE Subjective Pt. feeling better. Requests motrin for pain instead of percocet. Abd pain improved. She is ambulating, voiding and tolerating regular diet. Vital Signs Vital Signs Date Time Temp Pulse Resp B/P Pulse Ox O2 Delivery O2 Flow Rate FiO2 08/09/16 11:00 98.4 77 18 125/80 98 Room Air 98.4 I&O Intake and Output 08/09/16 07:00 Intake Total 2909 ml Balance 2909 ml Intake Oral 350 ml Other 2559 ml # Voids 2 PATIENT HAS A STOUT: No General: Alert, Oriented X3, Cooperative HEENT: Atraumatic Lungs: Clear to auscultation Heart: Regular rate Abdomen: Normal bowel sounds, Soft, No tenderness Psych/Mental Status: Mental status NL Labs Laboratory Tests Test 08/07/16 14:05 08/07/16 14:25 08/08/16 05:50 Urine Collection Type Unknown Urine Color Yellow Urine Clarity Clear Urine pH 8.0 Urine Specific [place] 1.015 Urine Protein Negativemg/dL (NEG-TRACE) Urine Glucose (UA) Negativemg/dL (NEG) Urine Ketones (Stick) Negativemg/dL (NEG) Urine Blood Negative (NEG) Urine Nitrite Negative (NEG) Urine Bilirubin Negative (NEG) Urine Urobilinogen Dipstick 0.2mg/dL (0.2 mg/dL) Urine Leukocyte Esterase Negative (NEG) Urine RBC 0/HPF (0-2) Urine WBC 0/HPF (0-4) Urine Squamous Epithelial Cells Mod/LPF Urine Bacteria 0/HPF (0-FEW) Urine Mucus Slight/LPF White Blood Count 17.3x10^3/uL (4.0-11.0) 15.1x10^3/uL (4.0-11.0) Red Blood Count 5.05x10^6/uL (3.50-5.40) 4.27x10^6/uL (3.50-5.40) Hemoglobin 11.5g/dL (12.0-15.5) 9.7g/dL (12.0-15.5) Hematocrit 37.0% (36.0-47.0) 31.5% (36.0-47.0) Mean Corpuscular Volume 73fL (79-100) 74fL (79-100) Mean Corpuscular Hemoglobin 23pg (25-35) 23pg (25-35) Mean Corpuscular Hemoglobin Concent 31g/dL (31-37) 31g/dL (31-37) Red Cell Distribution Width 23.3% (11.5-14.5) 23.4% (11.5-14.5) Platelet Count 534x10^3/uL (140-400) 510x10^3/uL (140-400) Neutrophils (%) (Auto) 88% (31-73) 82% (31-73) Lymphocytes (%) (Auto) 8% (24-48) 11% (24-48) Monocytes (%) (Auto) 5% (0-9) 7% (0-9) Eosinophils (%) (Auto) 0% (0-3) 0% (0-3) Basophils (%) (Auto) 0% (0-3) 0% (0-3) Neutrophils # (Auto) 15.2x10^3uL (1.8-7.7) 12.4x10^3uL (1.8-7.7) Lymphocytes # (Auto) 1.3x10^3/uL (1.0-4.8) 1.7x10^3/uL (1.0-4.8) Monocytes # (Auto) 0.8x10^3/uL (0.0-1.1) 1.0x10^3/uL (0.0-1.1) Eosinophils # (Auto) 0.0x10^3/uL (0.0-0.7) 0.1x10^3/uL (0.0-0.7) Basophils # (Auto) 0.0x10^3/uL (0.0-0.2) 0.0x10^3/uL (0.0-0.2) Segmented Neutrophils % 78% (35-66) Band Neutrophils % 5% (0-9) Lymphocytes % 12% (24-48) Monocytes % 5% (0-10) Toxic Granulation Mod Platelet Estimate Adequate (ADEQUATE) Polychromasia Slight Hypochromasia Mod Anisocytosis Mod Microcytosis Mod Target Cells Few Sodium Level 143mmol/L (136-145) 142mmol/L (136-145) Potassium Level 3.8mmol/L (3.5-5.1) 3.3mmol/L (3.5-5.1) Chloride Level 109mmol/L (98-107) 107mmol/L (98-107) Carbon Dioxide Level 25mmol/L (21-32) 25mmol/L (21-32) Anion Gap 9 (6-14) 10 (6-14) Blood Urea Nitrogen 9mg/dL (7-20) 4mg/dL (7-20) Creatinine 0.5mg/dL (0.6-1.0) 0.5mg/dL (0.6-1.0) Estimated GFR (Cockcroft-Gault) 142.1 142.1 BUN/Creatinine Ratio 18 (6-20) Glucose Level 90mg/dL (70-99) 72mg/dL (70-99) Calcium Level 8.9mg/dL (8.5-10.1) 8.2mg/dL (8.5-10.1) Total Bilirubin 0.3mg/dL (0.2-1.0) Aspartate Amino Transf (AST/SGOT) 16U/L (15-37) Alanine Aminotransferase (ALT/SGPT) 10U/L (14-59) Alkaline Phosphatase 55U/L (46-116) Total Protein 6.3g/dL (6.4-8.2) Albumin 1.9g/dL (3.4-5.0) Albumin/Globulin Ratio 0.4 (1.0-1.7) Lipase 256U/L (73-393) Problem List Problems Medical Problems: (1) Abdominal abscess Status: Acute Assessment/Plan A: Peritonitis: improving P: Continue IV abx. Anticipate CT scan Thursday. Problems: JAREN SENIOR Jr, MD Aug 09, 2016 12:04
[2016-08-09] MEDS: IBUPROFEN 800 MG TABLET. PO PRN ×2 (12:45→22:04)
[2016-08-09 15:00] VITALS: BP 119/70
[2016-08-09 19:00] VITALS: BP 113/65
[2016-08-09 23:00] VITALS: BP 118/70
[2016-08-10 03:00] VITALS: BP 120/80
[2016-08-10] MEDS: METRONIDAZOLE 500mg PREMIX 100 ML IV SCH ×3 (05:43→20:49)
[2016-08-10] MEDS: PIPERACILLIN/TAZOBACTAM 3.375 GM in IV NORMAL SALINE 50ML 50 ML IV SCH ×3 (05:44→17:15)
[2016-08-10 07:00] VITALS: BP 116/77
--- NOTE | 2016-08-10 10:49 | PDOC ---
SURGICAL PROGRESS NOTE Subjective Pt. feeling better. She is tolerating regular diet. Pain resolved. Vital Signs Vital Signs Date Time Temp Pulse Resp B/P Pulse Ox O2 Delivery O2 Flow Rate FiO2 08/10/16 07:20 Room Air 08/10/16 07:00 98.1 63 18 116/77 98 98.1 I&O Intake and Output 08/10/16 07:00 Intake Total 230 ml Balance 230 ml Intake Oral 230 ml # Voids 4 PATIENT HAS A STOUT: No General: Alert, Oriented X3, Cooperative HEENT: Atraumatic Lungs: Clear to auscultation Heart: Regular rate Abdomen: Normal bowel sounds, Soft, No tenderness, No masses Extremities: No edema Psych/Mental Status: Mental status NL Problem List Problems Medical Problems: (1) Abdominal abscess Status: Acute Assessment/Plan A: Peritonitis: improving P: Continue IV abx. CBC in am. Repeat CT scan in am. If abscess formation present, consider drain placement. Problems: JAREN SENIOR Jr, MD Aug 10, 2016 10:49
[2016-08-10 11:00] VITALS: BP 129/80
[2016-08-10] MEDS: IBUPROFEN 800 MG TABLET. PO PRN ×2 (14:38→20:48)
[2016-08-10 15:00] VITALS: BP 131/82
[2016-08-10 19:21] VITALS: BP 112/66
[2016-08-11] MEDS: PIPERACILLIN/TAZOBACTAM 3.375 GM in IV NORMAL SALINE 50ML 50 ML IV SCH ×4 (03:27→18:01)
[2016-08-11 03:35] VITALS: BP 115/75
[2016-08-11 05:05] LABS: BASO % 1 % (0-3); EOS % 2 % (0-3); HEMATOCRIT 28.3 % (36.0-47.0); LYMPH # 1.2 x10^3/uL (1.0-4.8); LYMPH % 16 % (24-48); MEAN CORPUSCULAR HEMOGLOBIN 24 pg (25-35); MEAN CORPUSCULAR HGB CONC 32 g/dL (31-37); MEAN CORPUSCULAR VOLUME 74 fL (79-100); MONO % 10 % (0-9); NEUT % 71 % (31-73); PLATELET COUNT 502 x10^3/uL (140-400); RED BLOOD COUNT 3.81 x10^6/uL (3.50-5.40); RED CELL DISTRIBUTION WIDTH 24.9 % (11.5-14.5); WHITE BLOOD COUNT 7.2 x10^3/uL (4.0-11.0)
[2016-08-11] MEDS: METRONIDAZOLE 500mg PREMIX 100 ML IV SCH ×3 (05:20→22:12)
[2016-08-11 07:00] VITALS: BP 125/88
[2016-08-11 11:00] VITALS: BP 123/78
[2016-08-11] MEDS: IBUPROFEN 800 MG TABLET. PO PRN (13:48)
[2016-08-11 15:00] VITALS: BP 127/82
[2016-08-11] MEDS ORDERED: IOHEXOL 240 MG/ML 50ML VIAL. PO ONE (15:00)
[2016-08-11] MEDS ORDERED: CONTRAST GIVEN MC PRN (15:00)
[2016-08-11] MEDS ORDERED: IOHEXOL 300 MG/ML 75 ML VIAL IV ONE (15:00)
--- NOTE | 2016-08-11 17:25 | RAD ---
CT of the abdomen and pelvis with contrast, 08/11/2016: History: Follow-up pelvic abscesses Multidetector CT imaging was performed following oral and IV administration of contrast. Comparison is made to a study from 08/07/2016. There is a persistent fluid collection in the deep pelvis located between the rectum and uterus. It demonstrates a thin wall. On the axial images it currently measures 7.6 x 3.8 cm, similar to on the previous study. There is a 4.7 x 2.3 cm fluid collection in the right paracolic gutter adjacent to the cecum in the upper aspect of the right iliac fossa. It also has a thin definable mass and is of similar size when compared to the previous study. There is a 3.1 cm rounded fluid collection adjacent to the distal descending colon and inferior tip of the left kidney which on this study demonstrates a thin wall. It was present in retrospect on the previous study, but is better defined on today's exam due to technical factors. Comparison with the study from 07/31/2016 shows that this is not a renal cyst. This is presumably an additional abscess. There is no evidence of bowel obstruction. There oral contrast material has reached the hepatic flexure level. The distal colon is not opacified. There does appear to be mild mural thickening involving the sigmoid colon. No free air is evident in the abdomen or pelvis. A small amount of gas in the urinary bladder is presumably on an iatrogenic basis. There is a less well-defined 3.5 cm fluid collection in the anterior abdominal wall at the mid pelvic level on the left. This was also present in retrospect on the previous study and is of similar size. There is generalized subcutaneous edema at the pelvic level. There is a small amount of left-sided pleural fluid with underlying left basilar atelectasis, similar to that seen on the previous study. The small right pleural effusion has largely resolved. No hepatic abnormality is seen. The gallbladder is collapsed. No pancreatic abnormality is detected. The spleen is of normal size. No renal abnormality is identified. 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 IMPRESSION: 1. Persistent fluid collections in the deep pelvis and paracolic gutter regions as described above suggesting residual abscesses. These have not increased in size. 2. Stable small fluid collection in the anterior pelvic wall which may represent postoperative seroma or hematoma, although an abscess cannot be excluded. 3. Small residual left pleural effusion
[2016-08-11 19:00] VITALS: BP 114/73
[2016-08-11 23:00] VITALS: BP 117/77
[2016-08-12] VITALS (30 sets, daily range): BP systolic 115–164; BP diastolic 74–96
[2016-08-12] MEDS: PIPERACILLIN/TAZOBACTAM 3.375 GM in IV NORMAL SALINE 50ML 50 ML IV SCH ×5 (00:06→22:58)
[2016-08-12] MEDS: METRONIDAZOLE 500mg PREMIX 100 ML IV SCH ×3 (06:23→20:11)
--- NOTE | 2016-08-12 08:06 | PDOC ---
Provider Note Provider Note IR Note: 35 YO female with pelvic abscess. CT images reviewed---Abscess amenable to percutaneous drainage. Tentatively on schedule for CT guided drain insertion today. RAYNA YEN MD Aug 12, 2016 08:06
--- NOTE | 2016-08-12 08:52 | PDOC ---
SURGICAL PROGRESS NOTE Subjective Pt. feeling better. Occasional abd pain. She will have Drain placement by Radiology. Discussed PO abx starting tomorrow. Vital Signs Vital Signs Date Time Temp Pulse Resp B/P Pulse Ox O2 Delivery O2 Flow Rate FiO2 08/12/16 07:00 98.7 70 18 146/88 97 Room Air 98.7 I&O Intake and Output 08/12/16 07:00 Intake Total 2038 ml Balance 2038 ml Intake Oral 1035 ml Other 1003 ml # Voids 4 PATIENT HAS A STOUT: No General: Alert, Oriented X3, Cooperative HEENT: Atraumatic Lungs: Clear to auscultation Heart: Regular rate Abdomen: Normal bowel sounds, Soft, No masses Psych/Mental Status: Mental status NL Labs Laboratory Tests Test 08/11/16 04:42 White Blood Count 7.2x10^3/uL (4.0-11.0) Red Blood Count 3.81x10^6/uL (3.50-5.40) Hemoglobin 9.0g/dL (12.0-15.5) Hematocrit 28.3% (36.0-47.0) Mean Corpuscular Volume 74fL (79-100) Mean Corpuscular Hemoglobin 24pg (25-35) Mean Corpuscular Hemoglobin Concent 32g/dL (31-37) Red Cell Distribution Width 24.9% (11.5-14.5) Platelet Count 502x10^3/uL (140-400) Neutrophils (%) (Auto) 71% (31-73) Lymphocytes (%) (Auto) 16% (24-48) Monocytes (%) (Auto) 10% (0-9) Eosinophils (%) (Auto) 2% (0-3) Basophils (%) (Auto) 1% (0-3) Neutrophils # (Auto) 5.1x10^3uL (1.8-7.7) Lymphocytes # (Auto) 1.2x10^3/uL (1.0-4.8) Monocytes # (Auto) 0.7x10^3/uL (0.0-1.1) Eosinophils # (Auto) 0.1x10^3/uL (0.0-0.7) Basophils # (Auto) 0.0x10^3/uL (0.0-0.2) Problem List Problems Medical Problems: (1) Abdominal abscess Status: Acute Assessment/Plan A: Pelvic abscess formation P: Drain placement by Radiology. Start PO abx by tomorrow. Problems: JAREN SENIOR Jr, MD Aug 12, 2016 08:52
[2016-08-12 09:39] LABS: INR 1.4 (0.8-1.1); PROTHROMBIN TIME PATIENT 15.9 SEC (11.7-14.0)
[2016-08-12] MEDS ORDERED: MIDAZOLAM HCL/PF 5 MG/5 ML VIAL ONE (13:54)
[2016-08-12] MEDS ORDERED: FENTANYL PF 250 MCG/5 ML VIAL. ONE (13:55)
[2016-08-12] MEDS ORDERED: LIDOCAINE 1% / SOD BICARB 8.4% 20 ML VIAL. IJ ONE ×2 (14:00→16:00)
[2016-08-12] MEDS ORDERED: ONDANSETRON PF 4 MG/2 ML VIAL. ONE (14:08)
[2016-08-12] MEDS ORDERED: IOHEXOL 300 MG/ML 50 ML VIAL. ONE (15:59)
[2016-08-12] MEDS ORDERED: ONDANSETRON PF 4 MG/2 ML VIAL. IV ONE (16:00)
[2016-08-12] MEDS ORDERED: MIDAZOLAM HCL/PF 5 MG/5 ML VIAL IV ONE (16:00)
[2016-08-12] MEDS ORDERED: FENTANYL PF 250 MCG/5 ML VIAL. IV ONE (16:00)
--- NOTE | 2016-08-12 16:11 | PDOC ---
MODERATE SEDATION ASSESSMENT RISKS/ALTERNATIVES Risks/Alternatives Risks and alternatives of this type of sedation and procedure discussed with: RISK/ALTERNATIVES: Patient H & P ON CHART H & P H & P on chart and reviewed for co-morbid conditions and appropriate labs. H&P ON CHART: Yes STATUS PREG STATUS ASSESSED: Yes MEDS/ALLERGIES REVIEWED Meds/Allergies Reviewed Medications and Allergies including time and route of recently administered narcotics and sedatives. MEDS/ALLERGIES REVIEWED: Yes ASA RATING ASA RATING: II AIRWAY ASSESSMENT Airway Assessment Airway patency, oral function limitations, presence of caps, crowns, dentures, partials, and ability to extend neck assessed. AIRWAY ASSESSMENT: Yes MALLAMPATI SCORE MALLAMPATI SCORE: II PRE-SEDATION ASSESSMENT PRE-SEDATION ASSESSMENT: Yes RAYNA YEN MD Aug 12, 2016 16:11
--- NOTE | 2016-08-12 16:12 | PDOC ---
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 Now readmitted having failed OP oral abx Tx. Current CT revealed 3 complex fluid collections, raising ? of post op abscesses. CT guided drainage of at least the cul de sac fluid collection has been requested by [employer]. Following discussion with Nicole, the decision was made to proceed with percutaneous drainage of all 3 collections. Post-Procedure Diagnosis Post-Procedure Diagnosis Same Procedure Performed Procedure Performed CT guided placement of 10F locking pigtail drainage catheters x 3 within cul de sac, right flank, and left flank fluid collections. Type of Anesthesia Type of Anesthesia Local + Mod sedation. Estimated Blood Loss EBL: Minimal Specimens Specimans Small samples of complex fluid were aspirated from each drain, and were sent separately to micro for aerobic/anaerobic C&S. Drain/Tubes Drains/Tubes 10F locking pigtail drainage catheters x 3---each to bulb suction Condition of Patient Condition of Patient Stable. Sedated. No apparent complication. Disposition Disposition From IR/CT return to [facility]. F/u with Dr Barba. Full report to follow. RAYNA YEN MD Aug 12, 2016 16:12
[2016-08-12] MEDS ORDERED: IOHEXOL 300 MG/ML 50 ML VIAL. IJ ONE (16:15)
[2016-08-12] MEDS ORDERED: CONTRAST GIVEN MC PRN (16:15)
[2016-08-12] MEDS: HYDROMORPHONE 2 MG/ML VIAL. IV PRN ×3 (20:12→22:49)
[2016-08-12] MEDS: ONDANSETRON PF 4 MG/2 ML VIAL. IV PRN (20:12)
[2016-08-13 03:08] VITALS: BP 119/77
[2016-08-13] MEDS: PIPERACILLIN/TAZOBACTAM 3.375 GM in IV NORMAL SALINE 50ML 50 ML IV SCH ×2 (05:39→12:21)
[2016-08-13] MEDS: METRONIDAZOLE 500mg PREMIX 100 ML IV SCH ×2 (05:39→14:19)
[2016-08-13 07:00] VITALS: BP 135/84
--- NOTE | 2016-08-13 07:14 | RAD ---
CT-guided insertion of cul-de-sac drainage catheter CT-guided insertion of right flank drainage catheter CT-guided insertion of left flank drainage catheter Indication: 35-year-old female recently admitted and treated for tubo-ovarian abscess. She has been readmitted, after failing outpatient oral antibiotic therapy. By CT, she has 3 separate postoperative fluid collections, suggestive of abscesses. Image guided catheter drainage has been requested. Anesthesia: 108 minutes moderate sedation was provided utilizing a total of 5 mg Versed and 250 mcg fentanyl, IV. The patient was appropriately monitored by a qualified independent observer throughout the time of moderate sedation. Antibiotic: The patient is receiving scheduled IV antibiotics. No additional prophylactic antibiotic was considered indicated. Consent: The procedure was explained in its entirety to the patient and/or the patient's designated videotape sales representative by a member of the treatment team. This included a discussion of risks and benefits and acceptable alternatives to the procedure, as well as expected consequences of no treatment at all. Discussion of risks included, but was not limited to, those that are most frequent and those that are rare, but possibly severe or life-threatening, as well as the possibility of unforeseen complications. PQRS Compliance Statement: One or more of the following individualized dose reduction techniques was utilized for this procedure: 1. Automated exposure control. 2. Adjustment of MA and/or KV according to patient size. 3. Iterative reconstruction technique. Procedure: Informed consent was obtained from the patient. Moderate sedation was provided with IV Versed and fentanyl. Left flank drainage catheter insertion: Nicole was initially placed prone on the CT scanner. Preliminary noncontrast CT images confirmed the presence of a 3 cm well-defined complex fluid collection within left flank, related to lower pole of left kidney, descending colon and iliopsoas muscle. A left posterior skin site suitable for CT-guided drain placement was selected and marked. That area was prepped and draped in the usual sterile fashion. Using aseptic technique, local anesthesia, and CT guidance, a 21-gauge micropuncture needle was successfully introduced into the left flank fluid collection. A small sample of complex fluid was aspirated, and was submitted to microbiology for Gram stain and aerobic/anaerobic culture and sensitivity. The micropuncture needle was exchanged over a guidewire for a micropuncture sheath, which was, in turn, removed over a 0.035 inch guidewire. The percutaneous tract was then sequentially dilated, and a 10 [place] locking pigtail drainage catheter was easily introduced. Completion CT images documented satisfactory position of the drainage catheter, which was connected to bulb suction, and was secured at the skin exit site utilizing suture and sterile dressing. Cul-de-sac drainage catheter insertion: Nicole was kept prone on the CT scanner. Preliminary noncontrast CT images confirmed the previously described complex fluid collection within cul-de-sac. A right posterior skin site suitable for CT-guided drain insertion was selected and marked. That area was prepped and draped in the usual sterile fashion. Using aseptic technique, local anesthesia, and CT guidance, a 19-gauge needle was successfully advanced into the cul-de-sac fluid collection. A small sample of complex fluid was aspirated, and was submitted to microbiology for Gram stain and for aerobic/anaerobic culture and sensitivity. The 19-gauge needle was then removed over a 0.035 inch guidewire. The percutaneous tract was dilated and a 10 [place] Island[place] locking pigtail drainage catheter was easily introduced. Completion CT images documented satisfactory position of the cul-de-sac drain, which was then connected to bulb suction, and was secured at the skin exit site utilizing suture and sterile dressing. Right flank drainage catheter insertion: Nicole was then turned supine on the CT scanner. Preliminary noncontrast CT images confirmed the presence of an elongated complex fluid collection extending caudally from inferior tip of liver into right iliac fossa. A right lateral skin site suitable for CT-guided drain placement was selected and marked. That area was prepped and draped in usual sterile fashion. Using aseptic technique, local anesthesia, and CT guidance, a 21-gauge micropuncture needle was successfully introduced into the right flank collection. A small sample of complex fluid was aspirated, and was submitted to microbiology for Gram stain and aerobic/anaerobic culture and sensitivity. The micropuncture needle was exchanged over a guidewire for a small micropuncture sheath, which was, in turn, removed over a 0.035 inch guidewire. The percutaneous tract was dilated and a 10 [place] Islander locking pigtail drainage catheter was easily introduced. 10 cc of dilute Omnipaque 300 was injected through the abscess drain and completion CT images were obtained, which documented satisfactory position of the drainage catheter within the complex fluid collection. The drainage catheter was then connected to bulb suction, and was secured at the skin exit site utilizing suture and sterile dressing. Patient tolerated the procedures well without apparent complication. Impression: Successful, uneventful CT-guided insertion of three 10 [place] Island[place] locking pigtail drainage catheters, one within cul-de-sac fluid collection, one within right flank fluid collection, and one within left flank fluid collection, as described. Samples from each fluid collection were submitted separately to microbiology for Gram stain and aerobic/anaerobic culture and sensitivity.
[2016-08-13 10:36] VITALS: BP 122/85
[2016-08-13 15:00] VITALS: BP 128/84
--- NOTE | 2016-08-13 16:54 | PDOC ---
SURGICAL PROGRESS NOTE Subjective Pt. feeling well. She tolerated procedure of drain placement without difficulty. She has [address] with minimal output of less than 10 ml in each drain. Vital Signs Vital Signs Date Time Temp Pulse Resp B/P Pulse Ox O2 Delivery O2 Flow Rate FiO2 08/13/16 15:00 98.4 76 16 128/84 99 Room Air 98.4 08/12/16 15:54 2.0 I&O Intake and Output 08/13/16 07:00 Intake Total 680 ml Output Total 50 ml Balance 630 ml Intake Oral 680 ml Output Drainage Total 50 ml # Voids 10 PATIENT HAS A STOUT: No General: Alert, Oriented X3, Cooperative HEENT: Atraumatic Lungs: Clear to auscultation Heart: Regular rate Abdomen: Normal bowel sounds, Soft, No masses, Other ([address]) Extremities: No edema Psych/Mental Status: Mental status NL Labs Laboratory Tests Test 08/12/16 08:20 Prothrombin Time 15.9SEC (11.7-14.0) Prothromb Time International Ratio 1.4 (0.8-1.1) Problem List Problems Medical Problems: (1) Abdominal abscess Status: Acute Assessment/Plan A: Pelvic abscesses P: Start PO abx. Monitor drain output. Anticipate d/c home in next 1-2 days. Problems: JAREN SENIOR Jr, MD Aug 13, 2016 16:54
[2016-08-13] MEDS ORDERED: ONDANSETRON ODT 4 MG TAB.RAPDIS PO PRN (17:00)
[2016-08-13 19:15] VITALS: BP 125/85
[2016-08-13] MEDS: METRONIDAZOLE 500 MG TABLET. PO SCH (22:11)
[2016-08-13] MEDS: AMOXICILLIN/K CLAV 875/125MG TABLET. PO SCH (22:11)
[2016-08-13] MEDS: ONDANSETRON PF 4 MG/2 ML VIAL. IV PRN (22:20)
[2016-08-13 23:40] VITALS: BP 138/78
[2016-08-14 03:15] VITALS: BP 123/76
[2016-08-14 07:00] VITALS: BP 119/85
[2016-08-14] MEDS: ONDANSETRON PF 4 MG/2 ML VIAL. IV PRN (09:11)
[2016-08-14] MEDS: AMOXICILLIN/K CLAV 875/125MG TABLET. PO SCH (09:11)
[2016-08-14] MEDS: METRONIDAZOLE 500 MG TABLET. PO SCH (09:11)
[2016-08-14 11:00] VITALS: BP 110/72
[2016-08-14 15:00] VITALS: BP 117/75
--- NOTE | 2016-08-14 17:47 | PDOC ---
SURGICAL PROGRESS NOTE Subjective PT. feeling well. No complaints. She is tolerating PO abx without difficulty. She was informed of drain care. Vital Signs Vital Signs Date Time Temp Pulse Resp B/P Pulse Ox O2 Delivery O2 Flow Rate FiO2 08/14/16 15:00 98.0 108 18 117/75 100 Room Air 98.0 08/13/16 20:00 2.0 I&O Intake and Output 08/14/16 07:00 Intake Total 1480 ml Output Total 65 ml Balance 1415 ml Intake Oral 1480 ml Output Drainage Total 65 ml # Voids 9 PATIENT HAS A STOUT: No General: Alert, Oriented X3, Cooperative HEENT: Atraumatic Lungs: Clear to auscultation Heart: Regular rate Abdomen: Normal bowel sounds, Soft, No tenderness, No masses, Other ([address] with less than 10 ml drainage from each today.) Extremities: No clubbing Skin: No rashes Psych/Mental Status: Mental status NL Problem List Problems Medical Problems: (1) Abdominal abscess Status: Acute Assessment/Plan A: Pelvic abscesses: improving P: D/c home with drain care. F/u in 1 wk. Continue PO abx for next week. Problems: JAREN SENIOR Jr, MD Aug 14, 2016 17:47
--- NOTE | 2016-08-14 17:47 | DISCH ---
DISCHARGE INSTRUCTIONS Condition on Discharge Condition on Discharge: Stable Activity After Discharge Activity Instructions for Disc: Activity as tolerated Lifting Instructions after Dis: No heavy lifting Driving Instructions after Dis: Do not drive today Diet after Discharge Diet after Discharge: Regular Contacting the DRMiriam after DC Call your doctor for: Concerns you may have Follow-Up Follow up with: Dr. Barba in 1 week. JAREN BARBA Jr, MD Aug 14, 2016 17:47
== END 2016-08-14 19:09 | disposition home or self-care (01) | DRG 862 ==
LOC: ER 11:02 → 4 NORTH 17:01
PROVIDERS: ADMIT Obstetrics & Gynecology; ATTEND Obstetrics & Gynecology
PROC: 0U9 Female Reproductive System, Drainage (ICD-10-PCS; principal; 2016-08-13)
DX: T81.4XXA Infection following a procedure, initial encounter (principal); K65.9 Peritonitis, unspecified; J45.909 Unspecified asthma, uncomplicated; K21.9 Gastro-esophageal reflux disease without esophagitis; N73.9 Female pelvic inflammatory disease, unspecified
CPT/HCPCS: 36415; 49406; 74177; 80048; 80053; 81001; 83690; 85007; 85027; 85610; 87071; 87075; 87205; 96361; 96374; 96375; A4215; C1729; C1892; J1170; J2250; J2270; J2405; J2543; J3010; J3490; J7030; Q9966; Q9967; 99285-25

== ENCOUNTER 2017-09-16 14:49 | Emergency (ER) | payer OTHER | END 2017-09-16 16:02 | disposition home or self-care (01) | LOC: ER 14:49 | DX: J02.9 Acute pharyngitis, unspecified (principal); J45.909 Unspecified asthma, uncomplicated; K21.9 Gastro-esophageal reflux disease without esophagitis | CPT/HCPCS: 99283 ==

== ENCOUNTER 2018-05-03 07:28 | Emergency (ER) | payer OTHER ==
[~2018-05-03] VITALS: Ht 147.3 cm; Wt 56.7 kg
[~2018-05-03 07:28] MED LIST changes: -CITA20TA5 PO; +CITA20TA6 PO; +DOCU-109 PO; -DOCU-27 PO; -FERR-26 PO; +FERR325T14 PO; -OMEP20TA PO; +OMEP20TA8 PO; +PRED-220 PO
--- NOTE | 2018-05-03 07:42 | PHYS DOC ---
Past Medical History Past Medical History: Anxiety, Asthma, GERD Past Surgical History: , Other Additional Past Surgical Histo: d&c, R ovary and R tube removed Alcohol Use: None Drug Use: None Adult General Chief Complaint Chief Complaint: WITHDRAWL HPI HPI Patient is a 37 year old female who presents with alcohol related problems. Patient states she has been withdrawing from alcohol over the last 5 days. She has been placed on a Librium taper dose during that time. By her primary care doctor. Today, she states she awoke on the floor this morning and possibly fell. She complains of left humerus and shoulder pain. After waking, she called EMS. The patient states she has never attempted to quit drinking so she is unsure what her symptoms would be. Denies prior DTs or seizures. She initially denies that she has had alcohol over the last 5 days. During her physical exam however, alcohol odor is noticed. When the patient is confronted, she changes her story and states that she did binge on vodka last evening. The patient had a bed at [facility] for detox yesterday but did not go there to check in. This morning she primarily complains of diffuse body aches and nausea. Also right shoulder pain from her fall. Review of Systems Review of Systems Constitutional: Denies fever Eyes: Denies change in visual acuity HENT: Denies nasal congestion or sore throat Respiratory: Denies cough or shortness of breath Cardiovascular: No additional information not addressed in HPI GI: Denies abdominal pain : Denies dysuria Musculoskeletal: Denies back pain Integument: Denies rash Neurologic: Denies focal neurologic complaints All other systems were reviewed and found to be within normal limits, except as documented in this note. Current Medications Current Medications Current Medications Medications (Trade) Dose Ordered Sig/Rocky Start Time Stop Time Status Last Admin Dose Admin Lorazepam (Ativan) 1 mg 1X ONCE 05/03/18 07:45 05/03/18 07:49 DC 05/03/18 08:13 1 MG Ondansetron HCl (Zofran) 4 mg 1X ONCE 05/03/18 07:45 05/03/18 07:49 DC 05/03/18 08:11 4 MG Sodium Chloride 1,000 ml @ 1,000 mls/hr 1X ONCE 05/03/18 07:45 05/03/18 08:44 DC 05/03/18 08:10 1,000 MLS/HR Allergies Allergies Allergies Coded Allergies Type Severity Reaction Last Updated Verified No Known Drug Allergies 11/11/13 No Physical Exam Physical Exam Constitutional: Well developed, well nourished, no acute distress HENT: Normocephalic, atraumatic, bilateral external ears normal, oropharynx moist Eyes: PERRLA, EOMI, conjunctiva normal Neck: Normal range of motion Cardiovascular:Heart rate regular rhythm Lungs & Thorax: Bilateral breath sounds clear to auscultation Abdomen: Bowel sounds normal, soft, no tenderness Skin: Warm, dry Extremities: No deformity noted on exam of the left humerus/shoulder. + mild pain with passive ROM of the left shoulder. Neurologic: Alert and oriented X 3 Psychologic: Affect normal, but lying to provider about her alcohol use. Current Patient Data Vital Signs Vital Signs Date Time Temp Pulse Resp B/P (MAP) Pulse Ox O2 Delivery O2 Flow Rate FiO2 05/03/18 07:53 98.6 73 20 120/78 (92) 96 98.6 Lab Values Laboratory Tests Test 05/03/18 08:00 05/03/18 08:42 White Blood Count 7.3 x10^3/uL (4.0-11.0) Red Blood Count 4.21 x10^6/uL (3.50-5.40) Hemoglobin 12.9 g/dL (12.0-15.5) Hematocrit 37.4 % (36.0-47.0) Mean Corpuscular Volume 89 fL (79-100) Mean Corpuscular Hemoglobin 31 pg (25-35) Mean Corpuscular Hemoglobin Concent 35 g/dL (31-37) Red Cell Distribution Width 14.2 % (11.5-14.5) Platelet Count 234 x10^3/uL (140-400) Neutrophils (%) (Auto) 57 % (31-73) Lymphocytes (%) (Auto) 27 % (24-48) Monocytes (%) (Auto) 9 % (0-9) Eosinophils (%) (Auto) 6 % (0-3) H Basophils (%) (Auto) 1 % (0-3) Neutrophils # (Auto) 4.1 x10^3uL (1.8-7.7) Lymphocytes # (Auto) 2.0 x10^3/uL (1.0-4.8) Monocytes # (Auto) 0.7 x10^3/uL (0.0-1.1) Eosinophils # (Auto) 0.4 x10^3/uL (0.0-0.7) Basophils # (Auto) 0.1 x10^3/uL (0.0-0.2) Sodium Level 144 mmol/L (136-145) Potassium Level 3.8 mmol/L (3.5-5.1) Chloride Level 108 mmol/L (98-107) H Carbon Dioxide Level 25 mmol/L (21-32) Anion Gap 11 (6-14) Blood Urea Nitrogen 11 mg/dL (7-20) Creatinine 0.7 mg/dL (0.6-1.0) Estimated GFR (Cockcroft-Gault) 95.2 Glucose Level 72 mg/dL (70-99) Calcium Level 8.3 mg/dL (8.5-10.1) L Magnesium Level 2.0 mg/dL (1.8-2.4) Total Bilirubin 0.3 mg/dL (0.2-1.0) Direct Bilirubin 0.2 mg/dL (0.0-0.2) Aspartate Amino Transferase (AST) 21 U/L (15-37) Alanine Aminotransferase (ALT) 21 U/L (14-59) Alkaline Phosphatase 80 U/L (46-116) Total Protein 6.6 g/dL (6.4-8.2) Albumin 3.2 g/dL (3.4-5.0) L Ethyl Alcohol Level < 10 mg/dL (0-10) POC Urine HCG, Qualitative Hcg negative (Negative) Laboratory Tests 05/03/18 08:00 Laboratory Tests 05/03/18 08:00 EKG EKG [] Radiology/Procedures Radiology/Procedures Shoulder XR: normal Course & Med Decision Making Course & Med Decision Making Pertinent Labs and Imaging studies reviewed. (See chart for details) 07:35: Patient is seen and examined. No objective signs for acute ETOH w/d during the exam. She is actively nauseated but no emesis. Will check xray of left shoulder, labs, and give medications to make her feel better. Will investigate possibility of a reserved bed for her at [facility] for ETOH detox. 09:00: No acute findings on lab panel. Patient was given a small dose of Ativan and has been resting comfortably with normal vital signs. Plan is for discharge. She is referred back to the [facility] for help with her addiction. No signs of acute ETOH w/d during the ED course. Dragon Disclaimer Dragon Disclaimer This electronic medical record was generated, in whole or in part, using a voice recognition dictation system. Departure Departure Referrals: ERIC JO MD (PCP) TAMEKA BAUMAN DO May 03, 2018 07:42
[2018-05-03] MEDS ORDERED: IV NORMAL SALINE 1000ML BAG 1,000 ML IV ONE (07:45)
[2018-05-03] MEDS ORDERED: ONDANSETRON PF 4 MG/2 ML VIAL. IV ONE (07:45)
[2018-05-03 07:53] VITALS: BP 120/78
[2018-05-03 08:13] LABS: BASO # 0.1 x10^3/uL (0.0-0.2); BASO % 1 % (0-3); EOS # 0.4 x10^3/uL (0.0-0.7); EOS % 6 % (0-3); HEMATOCRIT 37.4 % (36.0-47.0); HEMOGLOBIN 12.9 g/dL (12.0-15.5); LYMPH % 27 % (24-48); MEAN CORPUSCULAR HEMOGLOBIN 31 pg (25-35); MEAN CORPUSCULAR HGB CONC 35 g/dL (31-37); MEAN CORPUSCULAR VOLUME 89 fL (79-100); MONO # 0.7 x10^3/uL (0.0-1.1); MONO % 9 % (0-9); NEUT # 4.1 x10^3uL (1.8-7.7); NEUT % 57 % (31-73); PLATELET COUNT 234 x10^3/uL (140-400); RED BLOOD COUNT 4.21 x10^6/uL (3.50-5.40); RED CELL DISTRIBUTION WIDTH 14.2 % (11.5-14.5); WHITE BLOOD COUNT 7.3 x10^3/uL (4.0-11.0)
[2018-05-03 08:33] LABS: CALCIUM 8.3 mg/dL (8.5-10.1); CREATININE 0.7 mg/dL (0.6-1.0); GFR 95.2; POTASSIUM 3.8 mmol/L (3.5-5.1)
[2018-05-03 08:38] LABS: ALBUMIN 3.2 g/dL (3.4-5.0); DIRECT BILIRUBIN 0.2 mg/dL (0.0-0.2); TOTAL BILIRUBIN 0.3 mg/dL (0.2-1.0); TOTAL PROTEIN 6.6 g/dL (6.4-8.2)
--- NOTE | 2018-05-03 09:30 | RAD ---
2 view bilateral shoulder dated 05/03/2018. No comparison available. Clinical data indication: Pain after injury. FINDINGS: 2 views bilateral shoulder show normal bony alignment. No displaced fracture. No acute osseous or articular abnormality. Mild hypertrophic change of the bilateral AC joint. IMPRESSION: no acute findings. Electronically signed by: Toni Hill MD (05/03/2018 9:27 AM) [id number]
== END 2018-05-03 10:30 | disposition home or self-care (01) ==
LOC: ER 07:28
DX: F10.239 Alcohol dependence with withdrawal, unspecified (principal); M25.512 Pain in left shoulder; R11.0 Nausea; J45.909 Unspecified asthma, uncomplicated; K21.9 Gastro-esophageal reflux disease without esophagitis
CPT/HCPCS: 36415; 73030; 80048; 80076; 81025; 83735; 85025; 96374; 96375; 99285; G0480; J2060; J2405; J7030

== ENCOUNTER 2020-02-23 09:07 | Emergency (ER) | payer MEDICAID, OTHER ==
[~2020-02-23] VITALS: Ht 149.9 cm; Wt 86.4 kg
[~2020-02-23 09:07] MED LIST changes: +HYDR-3164 PO; -HYDR-971 PO; -OXYC-323 PO; +OXYC1TAB15 PO
[2020-02-23 09:12] VITALS: BP 160/93
[2020-02-23] MEDS ORDERED: CLINDAMYCIN HCL 150 MG CAPSULE. PO ONE (09:45)
[2020-02-23] MEDS ORDERED: DEXAMETHASONE 4 MG TABLET PO ONE (09:45)
[2020-02-23] MEDS ORDERED: KETOROLAC 30 MG/ML VIAL. IM ONE (09:45)
[2020-02-23] MEDS ORDERED: CHLO15MO2 PO (09:51)
[2020-02-23] MEDS ORDERED: OXYC1TAB15 PO (09:51)
[2020-02-23] MEDS ORDERED: PRED20TA PO (09:51)
--- NOTE | 2020-02-23 09:52 | PHYS DOC ---
Past Medical History Past Medical History: Asthma, GERD, Hypertension, Ovarian Cyst Additional Past Medical Histor: CELULITIS, HIGH CHOLESTEROL Past Surgical History: , Tubal ligation Additional Past Surgical Histo: d&c, R ovary and R tube removed Smoking Status: Current Every Day Smoker Additional Information: / PPD Alcohol Use: Occasionally Drug Use: None General Adult EDM: Chief Complaint: DENTAL PROBLEM HPI: HPI: Patient is a 39-year-old female who presents with left mandibular tooth pain and swelling. Patient has a long history of dental problems and sought treatment by dentist yesterday after the onset of pain. Patient states she was prescribed amoxicillin by dentist to treat suspected dental abscess on the left lower premolar. Patient states the pain and swelling has gotten worse since and rates the pain at a 10 out of 10. Patient has had this type of pain before and was treated inpatient for cellulitis associated with a previous dental abscess. Patient was also prescribed oxycodone by her dentist which provided minimal relief. Patient denies any trouble breathing, chest pain, subjective fever. Review of Systems: Review of Systems: Constitutional: Denies fever or chills Eyes: Denies redness or eye pain HENT: Endorses sore throat, mouth pain Respiratory: Denies cough or shortness of breath Cardiovascular: Denies chest pain or palpitations GI: Denies abdominal pain, nausea, or vomiting : Denies dysuria or hematuria Musculoskeletal: Denies back pain or joint pain Integument: Denies rash or skin lesions Neurologic: Denies headache, focal weakness or sensory changes Complete systems were reviewed and found to be within normal limits, except as documented in this note. Allergies: Allergies: Allergies Coded Allergies Type Severity Reaction Last Updated Verified No Known Drug Allergies 11/11/13 No Physical Exam: PE: Constitutional: Well developed, well nourished, mild distress, non-toxic appearance HENT: Oral mucosa erythematous, left lower lip swollen, left mandibular area s wollen but not erythematous, poor dentition, no obvious abscess appreciated Eyes: PERRL, EOMI, conjunctiva normal, no discharge Neck: Normal range of motion, no tenderness, supple, submandibular and left anterior cervical lymphadenopathy present Lungs & Thorax: Equal chest rise and fall bilaterally, no respiratory distress Abdomen: Soft, no tenderness Skin: Warm, dry, no erythema, no rash Back: No tenderness, no CVA tenderness Extremities: No tenderness, ROM intact, no edema Neurologic: Alert and oriented X 3, normal motor function, normal sensory function, no focal deficits noted Psychologic: Affect normal, judgment normal Current Patient Data: Vital Signs: Vital Signs Date Time Temp Pulse Resp B/P (MAP) Pulse Ox O2 Delivery O2 Flow Rate FiO2 02/23/20 09:12 98.9 100 18 160/93 (115) 98 Room Air 98.9 Course & Med Decision Making: Course & Med Decision Making Nicole Cummings is a 39-year-old female presenting to the ED with left lower mandibular tooth pain. Patient states she received amoxicillin and hydrocodone yesterday to treat a underlying dental abscess and associated pain before definitive treatment could be provided. Patient states the pain and swelling has gotten worse since her dental visit and states the hydrocodone has provided minimal relief. Patient was advised to stop taking amoxicillin and prescribed clindamycin 300 mg 1 tab 3 times a day for 7 days to expand coverage considering her past history of cellulitis. Patient was given dexamethasone for swelling, ketorolac IM and a prescription of Percocet for pain as well as antiseptic m outhwash. Patient was counseled on the importance of following up with dentist for definitive treatment. Patient stable for discharge with outpatient follow-up with dentist. Discussed findings and plan with patient, who acknowledges understanding and agreement. Vinayak Disclaimer: Vinayak Disclaimer: This electronic medical record was generated, in whole or in part, using a voice recognition dictation system. Departure Departure Impression: Primary Impression: Dental abscess Disposition: HOME, SELF-CARE Condition: STABLE Referrals: Anh BHATT MD (PCP) Patient Instructions: Dental Abscess, Toothache-Brief Additional Instructions: Adkk-hnx-crcseut take [id number]-gpl-[id number] ibuprofen 400 mg to 600 mg 3 times daily. Take prescribed pain medication in between doses of ibuprofen. Discontinue previously prescribed amoxicillin. Follow-up closely with your dentist. Scripts Chlorhexidine Gluconate (PERIDEX) 15 Ml Mouthwash 15 ML PO BID, #473 ML 0 Refills Prov: DESHAWN MCMANUS DO 02/23/20 Prednisone (PREDNISONE) 20 Mg Tablet 2 TAB PO DAILY, #8 TAB Start this medication tomorrow 02/24/2020 Prov: DESHAWN MCMANUS DO 02/23/20 Oxycodone/Apap 5-325 (PERCOCET 5-325 MG TABLET ) 1 Each Tablet 0.5-1 TAB PO PRN Q6HRS PRN for PAIN, #10 TAB 0 Refills Prov: DESHAWN MCMANUS DO 02/23/20 DESHAWN MCMANUS DO Feb 23, 2020 09:52
== END 2020-02-23 10:07 | disposition home or self-care (01) ==
LOC: ER 09:07
DX: K04.7 Periapical abscess without sinus (principal); K08.89 Other specified disorders of teeth and supporting structures; R60.0 Localized edema; J45.909 Unspecified asthma, uncomplicated; K21.9 Gastro-esophageal reflux disease without esophagitis; I10 Essential (primary) hypertension; F17.200 Nicotine dependence, unspecified, uncomplicated; Z98.51 Tubal ligation status; Z98.890 Other specified postprocedural states
CPT/HCPCS: 99283; J1885

== ENCOUNTER → 2020-09-18 | Outpatient (CLI) | payer MEDICAID ==
[~2020-09-18] MED LIST changes: +CHLO15MO2 PO; +PRED20TA PO
--- NOTE | 2020-09-18 15:13 | KCIC ---
XR KNEE 3 VIEWS_RT DATE: 09/18/2020 11:27 AM INDICATION: Reason: Right knee pain 1 month / Spl. Instructions: / History: COMPARISON: None. FINDINGS: Bones: There is no evidence of acute fracture or dislocation. Joints: Mild medial compartment joint space narrowing. There is no joint effusion. Miscellaneous: None. IMPRESSION: No acute osseous abnormality. Mild medial compartment joint space narrowing. Electronically signed by: Tobias Robles MD (09/18/2020 3:10 PM) [id number]
--- NOTE | 2020-09-18 17:21 | KCIC ---
XR LUMBAR SPINE 4+V History: Reason: Back pain, Pt leg/knee pain 1 month. Scoliosis / Spl. Instructions: / History: Comparison: CT abdomen and pelvis 08/11/2016. Technique: 5 views of the lumbar spine. Findings: Variant anatomy with hypoplastic T12 ribs, 5 nonrib-bearing lumbar vertebral bodies and butterfly morgan tebra at L3 and L4. Levoconvex curvature with apex at L3-L4. No spondylolisthesis or spondylolysis. There is no evidence for fracture or destructive osseous lesion. There is disc space narrowing at L2-S1 which may be developmental versus degenerative. Mild multileve l facet hypertrophy. IMPRESSION: 1. 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 2. Multilevel disc space narrowing L2-S1 which is likely both developmental and degenerative. 3. Levoconvex scoliosis. Electronically signed by: Shaun Grijalva MD (09/18/2020 5:18 PM) [facility]
== END ==
LOC: KCIC 11:22
PROVIDERS: ATTEND Family Medicine
DX: M47.817 Spondylosis without myelopathy or radiculopathy, lumbosacral region (principal); M48.07 Spinal stenosis, lumbosacral region; M41.87 Other forms of scoliosis, lumbosacral region
CPT/HCPCS: 72110; 73562

== ENCOUNTER → 2020-12-20 | Outpatient (CLI) | payer MEDICAID ==
--- NOTE | 2020-12-20 17:02 | RAD ---
EXAMINATION: US PELVIS W/TV INDICATION: 39 years, Female, left ovarian cyst seen 3 weeks at Urgent care. Follow-up examination.. COMPARISON: CT dated 08/11/2016 TECHNIQUE: Trans abdominal and transvaginal ultrasound of the pelvis was performed with grayscale, sp ectral, and color doppler imaging. FINDINGS: UTERUS: Position: Anteverted Measures: 8.9 x 4.8 x 3.6 cm. Uterine/Endometrial Morphology: Suggestion of arcuate type uterus, normal variant. Endometrial Thickness: 1.2 cm, within normal limits for premenopausal woman. RIGHT OVARY/ADNEXA: History of oophorectomy. LEFT OVARY/ADNEXA: Not visualized due to overlying bowel gas. OTHER: Fluid/Cul-De-Sac: No pelvic free fluid. IMPRESSION: Left ovary and adnexa are not visualized due to overlying bowel gas. Electronically signed by: Daniel Lutz MD (12/20/2020 5:00 PM) [facility]
== END ==
LOC: US 15:10
PROVIDERS: ATTEND Obstetrics & Gynecology
DX: N83.202 Unspecified ovarian cyst, left side (principal)
CPT/HCPCS: 76830; 76856